=== PATIENT | male | born 1955 | race Caucasian/White ===

== ENCOUNTER 2018-01-03 05:38 | Day surgery (SDC) | END 2018-01-03 12:07 | disposition home or self-care (01) ==

== ENCOUNTER 2018-08-01 01:41 | Emergency (ER) | payer OTHER ==
[~2018-08-01] VITALS: Ht 182.6 cm; Wt 145.0 kg
[~2018-08-01 01:41] MED LIST: AMIO200T4 PO; APIX5TAB PO; CHOL100062 PO; CYAN100T PO; FOLI-49 PO; FURO40TA4 PO; NEBI10TA2 PO
[2018-08-01 01:45] VITALS: Ht 182.6 cm; Wt 145.0 kg
[2018-08-01] MEDS ORDERED: morphine 4 MG/ML VIAL IM STA (02:03)
--- NOTE | 2018-08-01 03:23 | ERD ---
ER Documentation Chief Complaint Chief Complaint KRISTIE [id number] from [facility],Rt chest surgical site pain HPI Is a 7-year-old male comes in with right-sided chest pain and placement of a surgical chest tube site. The pain started today. Mild to moderate intensity. No fevers or chills. No nausea no vomiting. No new trauma. No other current complaints. ROS All systems reviewed and are negative except as per history of present illness. Medications Home Meds Reported Medications Cholecalciferol* (Vitamin D3*) 1,000 Unit Tablet, 1000 UNIT PO DAILY, TAB 01/03/18 Cyanocobalamin* (Vitamin B-12*) 100 Mcg Tablet, 100 MCG PO DAILY, TAB 01/03/18 Folic Acid* (Folic Acid*) 1 Mg Tablet, 1 MG PO DAILY, TAB 01/03/18 Nebivolol Hcl* (Bystolic*) 10 Mg Tablet, 10 MG PO DAILY, #30 TAB 01/03/18 Furosemide* (Furosemide*) 40 Mg Tablet, 40 MG PO DAILY, TAB 01/03/18 Amiodarone Hcl* (Amiodarone Hcl*) 200 Mg Tablet, 200 MG PO DAILY, #30 TAB 01/03/18 Apixaban* (Eliquis*) 5 Mg Tablet, 10 MG PO BID WITH MEALS, TAB 01/03/18 Allergies Allergies: Coded Allergies: No Known Allergies (Verified Allergy, Unknown, 01/03/18) PMhx/Soc History of Surgery: Yes (right wrist surgery; left knee sx, RIGHT CHEST TUBE, TRACH, GTUBE PLACEMENT) Anesthesia Reaction: No Hx Neurological Disorder: No Hx Respiratory Disorders: Yes (RESPIRATORY FAILURE) Hx Cardiac Disorders: Yes (CHF, AFIB, AORTIC STENOSIS, ) Hx Psychiatric Problems: No Hx Miscellaneous Medical Probl: Yes (ARTHRITIS, GOUT, DM, ARF, MORBID OBESITY) Hx Alcohol Use: No Hx Substance Use: No Hx Tobacco Use: No Smoking Status: Unknown if ever smoked Physical Exam Vitals Vital Signs Date Temp Pulse Resp B/P (MAP) Pulse Ox O2 O2 Flow FiO2 Time Delivery Rate 08/01/18 95 16 108/92 100 Trach 5.0 02:00 (97) Collar 08/01/18 98.3 60 18 165/102 100 01:45 (123) Physical Exam Const: No acute distress Head: Atraumatic Eyes: Normal Conjunctiva ENT: Normal External Ears, Nose and Mouth. Neck: Full range of motion. No meningismus. Resp: Clear to auscultation bilaterally Cardio: Regular rate and rhythm, no murmurs Abd: Soft, non tender, non distended. Normal bowel sounds Skin: No petechiae or rashes Back: No midline or flank tenderness Ext: No cyanosis, or edema Neur: Awake and alert Psych: Normal Mood and Affect Results 24 hrs Current Medications Medications Dose Sig/Terri Start Time Status Last (Trade) Ordered Route PRN Stop Time Admin Dose Reason Admin Morphine 4 mg ONCE STAT 08/01/18 DC Sulfate IM 02:03 08/01/18 (morphine) 02:04 1 tab ONCE ONCE 08/01/18 Acetaminophen PO 03:30 08/01/18 / 03:31 Hydrocodone Bitart ([place] ()) Procedures/MDM Chest X-ray 1V Interpreted by me: Soft Tissue: No acute abnormalities Bones: No acute abnormalities Mediastinum/Cardiac Silhouette/Lungs: [No acute abnormalities] Medical decision makin-year-old male here essentially postop surgical pain. Spine clinical stable. No evidence of acute process. Stable for outpatient management. Departure Diagnosis: Primary Impression: Postoperative complication Surgical complication system/body Area: skin Surgical complication type: unspecified Procedure type: non-dermatologic Qualified Codes: L76.82 - Other postprocedural complications of skin and subcutaneous tissue Condition: Stable Patient Instructions: Post Op Wound Check, Pain GUS HUTSON Aug 01, 2018 03:23
[2018-08-01] MEDS ORDERED: HYDROCODONE/APAP (10/325) TAB PO ONE (03:30)
[2018-08-01 06:20] VITALS: BP 108/72; PULSE 91; RESP 18
== END 2018-08-01 06:35 | disposition home or self-care (01) ==
LOC: E/R 01:41
DX: L76.82 Other postprocedural complications of skin and subcutaneous tissue (principal); I50.9 Heart failure, unspecified; E11.9 Type 2 diabetes mellitus without complications; E66.01 Morbid (severe) obesity due to excess calories; R07.9 Chest pain, unspecified; Z79.01 Long term (current) use of anticoagulants
CPT/HCPCS: 71045; 93005; J2270

== ENCOUNTER 2018-08-10 02:08 | Inpatient (IN) | payer OTHER ==
[~2018-08-10] VITALS: Ht 185.4 cm; Wt 156.0 kg
[2018-08-10] VITALS (20 sets, daily range): BP systolic 89–125; BP diastolic 52–99; PULSE 73–89; RESP 16–30; Ht 185.4 cm; Wt 156.0 kg
--- NOTE | 2018-08-10 02:19 | ERD ---
ER Documentation Chief Complaint Chief Complaint chest congestion HPI The patient is a 63-year-old male, presenting to the ER because of acute nasal and chest congestion for the last 2 weeks, complains of substernal chest discomfort for the last 2-3 days. He also complains of decreased urine output for the last 12 days. He had a Humphrey catheter inserted by the nursing staff that did not drain out any urine. He denies facial pain, denies chest pain with vomiting/radiation/exertion/diaphoresis, dyspnea, abdominal pain, vomiting, diarrhea, constipation. He does not smoke nor drink, not ambulatory He was treated with 2 nitroglycerin spray and aspirin 162 mg p.o. by EMS that make no different Past medical history:Chronic respite failure, dysphagia, history of CHF, atrial fibrillation, aortic stenosis, CAD, diabetes mellitus Past surgical history: Tracheostomy connected to a 2 L, G-tube ROS All systems reviewed and are negative except as per history of present illness. Medications Home Meds Reported Medications Cholecalciferol* (Vitamin D3*) 1,000 Unit Tablet, 1000 UNIT PO DAILY, TAB 01/03/18 Cyanocobalamin* (Vitamin B-12*) 100 Mcg Tablet, 100 MCG PO DAILY, TAB 01/03/18 Folic Acid* (Folic Acid*) 1 Mg Tablet, 1 MG PO DAILY, TAB 01/03/18 Nebivolol Hcl* (Bystolic*) 10 Mg Tablet, 10 MG PO DAILY, #30 TAB 01/03/18 Furosemide* (Furosemide*) 40 Mg Tablet, 40 MG PO DAILY, TAB 01/03/18 Amiodarone Hcl* (Amiodarone Hcl*) 200 Mg Tablet, 200 MG PO DAILY, #30 TAB 01/03/18 Apixaban* (Eliquis*) 5 Mg Tablet, 10 MG PO BID WITH MEALS, TAB 01/03/18 Allergies Allergies: Coded Allergies: No Known Allergies (Unverified Allergy, Unknown, 08/10/18) PMhx/Soc History of Surgery: Yes (right wrist surgery; left knee sx, RIGHT CHEST TUBE, TRACH, GTUBE PLACEMENT) Anesthesia Reaction: No Hx Neurological Disorder: No Hx Respiratory Disorders: Yes (RESPIRATORY FAILURE) Hx Cardiac Disorders: Yes (CHF, AFIB, AORTIC STENOSIS, ) Hx Psychiatric Problems: No Hx Miscellaneous Medical Probl: Yes (ARTHRITIS, GOUT, DM, ARF, MORBID OBESITY) Hx Alcohol Use: No Hx Substance Use: No Hx Tobacco Use: No Physical Exam Vitals Vital Signs Date Temp Pulse Resp B/P (MAP) Pulse Ox O2 O2 Flow FiO2 Time Delivery Rate 08/10/18 75 16 130/62 95 Trach 15.0 04:53 (84) Collar 08/10/18 78 14 87/61 (70) 94 Trach 15.0 04:34 Collar 08/10/18 74 19 118/66 100 Trach 15.0 03:13 (83) Collar 08/10/18 15 02:43 08/10/18 97.7 77 16 93/66 (75) 99 02:36 Physical Exam Const: No acute distress. Dehydrated Head: Atraumatic. Eyes: Normal Conjunctiva. ENT: Normal External Ears, Nose and Mouth. Neck: Full range of motion. No meningismus.Trach Resp: Clear to auscultation bilaterally. Cardio: Irregularly irregular Abd: Soft, obese, normal bowel sounds, non tender.GT Skin: No petechiae or rashes. Back: No midline or flank tenderness. Ext: No cyanosis, or edema. Neur: Awake and alert. No focal deficit Psych: Normal Mood and Affect. Result Diagram: 08/10/1821908/10/18219 Results 24 hrs Laboratory Tests Test 08/10/18 02:19 08/10/18 02:20 08/10/18 02:56 08/10/18 05:08 POC Venous Lactate 2.0 mmol/L 1.5 mmol/L White Blood Count 7.7 10^3/ul Red Blood Count 2.36 10^6/ul Hemoglobin 7.0 g/dl Hematocrit 24.7 % Mean Corpuscular 104.7 fl Volume Mean Corpuscular 29.7 pg Hemoglobin Mean Corpuscular 28.3 g/dl Hemoglobin Concent Red Cell 19.1 % Distribution Width Platelet Count 124 10^3/UL Mean Platelet 11.3 fl Volume Immature 0.400 % Granulocytes % Neutrophils % 77.8 % Lymphocytes % 12.7 % Monocytes % 5.1 % Eosinophils % 3.9 % Basophils % 0.1 % Nucleated Red Blood 0.0 /100WBC Cells % Immature 0.030 10^3/ul Granulocytes # Neutrophils # 6.0 10^3/ul Lymphocytes # 1.0 10^3/ul Monocytes # 0.4 10^3/ul Eosinophils # 0.3 10^3/ul Basophils # 0.0 10^3/ul Nucleated Red Blood 0.0 10^3/ul Cells # Prothrombin Time 21.2 Sec Prothrombin Time 1.7 Ratio INR International 1.82 Normalized Ratio Activated 37.0 Sec Partial Thromboplas t Time Sodium Level 136 mmol/L Potassium Level 5.0 mmol/L Chloride Level 84 mmol/L Carbon Dioxide 36 mmol/L Level Anion Gap 16 Blood Urea Nitrogen 223 mg/dl Creatinine 7.17 mg/dl Est Glomerular 8 mL/min Filtrat Rate mL/min Glucose Level 166 mg/dl Calcium Level 8.7 mg/dl Total Bilirubin 0.0 mg/dl Direct Bilirubin 0.00 mg/dl Indirect Bilirubin 0.0 mg/dl Aspartate Amino 29 IU/L Transf (AST/SGOT) Alanine 15 IU/L Aminotransferase (A LT/SGPT) Alkaline 122 IU/L Phosphatase Troponin I 0.080 ng/ml Total Protein 7.3 g/dl Albumin 3.3 g/dl Globulin 4.00 g/dl Albumin/Globulin 0.82 Ratio Bedside Urine pH 5.0 (LAB) Bedside Urine 3+ Protein (LAB) Bedside Urine Negative Glucose (UA) Bedside Urine Trace Ketones (LAB) Bedside Urine Blood 2+ Bedside Urine Negative Nitrite (LAB) Bedside Urine 1+ Leukocyte Esterase (L Current Medications Medications Dose Sig/Terri Start Time Status Last (Trade) Ordered Route PRN Stop Time Admin Dose Reason Admin Piperacillin 50 ml @ ONCE ONCE 08/10/18 DC 08/10/18 Sod/ 100 mls/hr IVPB 05:00 05:17 Tazobactam 08/10/18 05:29 Sod Sodium 2,400 ml BOLUS OVER 2 08/10/18 DC 08/10/18 Chloride HOURS STAT 04:35 04:32 (NS) IV* 08/10/18 04:43 Vancomycin 250 ml @ ONCE ONCE 08/10/18 HCl 125 mls/hr IVPB 05:00 08/10/18 06:59 Procedures/MDM [place] [id number] Radiology Main Line: [phone] DIAGNOSTIC IMAGING REPORT Patient: LAUREEN WHITFIELD : 1955 Age: 63 Sex: M MR #: [id number] DOS: 08/10/18 0220 Ordering MD: TEENA HARMON MD Location: E/R Room/Bed: PROCEDURE: CHEST - 1 VIEW CLINICAL INDICATION: 63-year-old male with shortness of breath and sepsis. TECHNIQUE: A single frontal AP portable view of the chest was performed. The images were reviewed on a PACS workstation. COMPARISON: DR GUEVARA 08/01/2018; DR VIGIL CHEST 01/03/2018 FINDINGS: There is a tracheostomy tube in place. The cardiomediastinal silhouette it is moderately enlarged but without significant interval change. There is mild pulmonary vascular congestion. There is a shallow inspiration. There is mild bibasilar subsegmental atelectasis. There is no definite focal area of consolidation. There is no evidence for pneumothorax. The osseous structures are intact. IMPRESSION: 1. Tracheostomy tube. 2. Cardiomegaly. 3. Pulmonary vascular congestion. 4. Shallow inspiration. 5. Mild bibasilar subsegmental atelectasis. .Bishnu Mcginnis MD, MD Date Time Electronically viewed and signed by .Bishnu Mcginnis MD, MD on 08/10/2018 03:03 .M/ CC: TEENA HARMON MD [id number] EKG: Read by emergency physician Rate/Rhythm: Atrial fibrillation 69 beats per min QRS, ST, T-waves: No ST elevation, no T wave inversion, LAD, right bundle branch block, inferior Q waves, lateral T abnormality Impression: Abnormal EKG MEDICAL MAKING DECISION: The patient is a 63-year-old male, presenting with a cute severe sepsis, acute cystitis, acute kidney injury, suspected acute GI bleeding he was treated with vancomycin IV, Zosyn IV, ideal body weight IV fluid because of high BMI of 44. I have ordered to transfuse him 2 units of packed red blood cell due to acute severe anemia, suspected for acute GI bleed The differential diagnoses considered include but are not limited to asthma, COPD, pneumonia, pulmonary embolus, pleural effusion, congestive heart failure, GI bleed. MDM: Patient's infectious symptoms have not stabilized and the patient is at risk of rapid decompensation. The patient will be admitted for careful hydration, antibiotic therapy, and infectious source control. SEVERE SEPSIS CRITERIA: Infectious source:uti End organ damage indicated by: Lactate > 2.0 mmol/L Home Administrator > 2.0 SEPSIS MANAGEMENT Time of recognition of severe sepsis: 5am 3 HOUR BUNDLE Blood cultures x 2 before broad-spectrum antibiotics: Yes 30 ml/kg NS bolus completed Initial lactate2 Repeat lactate Pending SEPTIC SHOCK ASSESSMENT: No lactic acid > 4.0 No persistent hypotension (SBP < 90 or 40 mmHg drop, MAP < 65) despite 30 mL/kg IV fluid bolus CRITICAL CARE Critical care time 35 minutes Emergent fluid management while maintaining close respiratory support. Provision of immediate and broad-spectrum antibiotic therapy. Simultaneous assessment for possible sources in order to direct targeted therapy. Consideration for invasive and chemical support to prevent cardiopulmonary collapse. Critical care time is independent of procedures performed. Departure Diagnosis: Primary Impression: Severe sepsis Additional Impressions: UTI (urinary tract infection) SHAILA (acute kidney injury) GI bleed Anemia Thrombocytopenia Condition: Critical Comments I discussed the findings with the patient. I discussed the patient with the hospitalist Dr Hawthorne at 5 am. who was made aware of the lab, the treatment, the patient condition. The patient is admitted to ICU Disclaimer: Inadvertent spelling and grammatical errors are likely due to EHR/dictation software use and do not reflect on the overall quality of patient care. Also, please note that the electronic time recorded on this note does not necessarily reflect the actual time of the patient encounter. TEENA HARMON MD Aug 10, 2018 02:19
[2018-08-10] MEDS ORDERED: SODIUM CHLORIDE 0.9% 1L BAG IV* STA (04:35)
[2018-08-10] MEDS ORDERED: PIPER-TAZO 2.25 GM (PMX) 50 ML IVPB ONE (05:00)
[2018-08-10] MEDS ORDERED: VANCOMYCIN 1 GM (PMX) 250 ML IVPB ONE (05:00)
--- NOTE | 2018-08-10 08:15 | NUR ---
Received from ER,, awake and alert, communicate with mouth words, denies pain with with c/o of having some SOB on exertion, afebrile, BP currently stable, generalized edema, with harp cath reported to be anuric for >10 days. Skin assessed with other RN, noted to have lesions on the right and left buttocks, incontinent dermatitis, left neck trach suture site and, oozing old CT site on the right chest. Notified patient regarding the plan of care, wound care. Pending Nephrology consult.
[2018-08-10] MEDS ORDERED: SOD CHLORIDE 0.9% 1,000 ML IV SCH (09:20)
[2018-08-10] MEDS ORDERED: NACL 0.9% 3 ML SYG IV SCH (09:30)
[2018-08-10] MEDS ORDERED: ACETAMINOPHEN 650 MG SUPP PR PRN (09:30)
[2018-08-10] MEDS ORDERED: ACETAMINOPHEN 325 MG TAB PO PRN (09:30)
[2018-08-10] MEDS ORDERED: morphine SULFATE/PF (2 MG/2 ML) SYG IV PRN (09:30)
[2018-08-10] MEDS ORDERED: ONDANSETRON 4 MG INJ IV PRN (09:30)
[2018-08-10] MEDS ORDERED: BISACODYL 10 MG SUPP PR PRN (09:30)
[2018-08-10] MEDS ORDERED: ALLOPURINOL 100 MG TAB PO ONE (10:00)
[2018-08-10] MEDS ORDERED: DEXTROSE 50% 50 ML SYRINGE IV PRN ×2 (10:30)
[2018-08-10] MEDS ORDERED: GLUCAGON 1 MG INJ IM PRN (10:30)
[2018-08-10] MEDS ORDERED: GLUCOSE GEL 15 GRAM TUBE BUCCAL PRN (10:30)
[2018-08-10] MEDS ORDERED: GLUCOSE GEL 15 GRAM TUBE PO PRN ×2 (10:30)
[2018-08-10] MEDS ORDERED: LORA-441 PO (10:47)
[2018-08-10] MEDS ORDERED: [UNRECOGNIZED DRUG - CODE] MC (10:47)
[2018-08-10] MEDS ORDERED: ESCI5TAB10 G-TUBE (10:47)
[2018-08-10] MEDS ORDERED: UDFER GTB (10:47)
[2018-08-10] MEDS ORDERED: FERR12.5 PO (10:47)
[2018-08-10] MEDS ORDERED: LANT3I SC (10:59)
[2018-08-10] MEDS ORDERED: OXYC10SY GTB (10:59)
--- NOTE | 2018-08-10 11:04 | HP ---
Date/Time of Note Date/Time of Note DATE: 08/10/18 TIME: 10:07 Assessment/Plan VTE Prophylaxis SCD applied (from Nsg): Yes Pharmacological prophylaxis: heparin Lines/Catheters IV Catheter Type (from Nrsg): Saline Lock Assessment/Plan Assessment/Plan 63-year-old male with: 1. Volume overload, anasarca, pulmonary edema, in setting of known diastolic heart failure and advance kidney disease, patient currently in acute on chronic renal failure Nephrology consult pending, patient may need to initiate dialysis given his current laboratory data and volume overload status. 2. Acute kidney injury on chronic kidney disease, patient with uremia, metabolic acidosis, mild hyperkalemia noted this morning, volume overload with anasarca and pulmonary edema. Patient known to have advanced chronic kidney disease, also has hyperuricemia/gout, uric acid is up to 14.5. Discussed with nephrology. Patient to be started on allopurinol currently. Ultrasound pending, ABG pending. Further evaluation regarding possible initiation of hemodialysis per nephrology. Patient did get approximately 2.5 L normal saline bolus in the emergency department along with 1 unit of packed red blood cells already. Holding off IV fluids for now. Further decision regarding hydration versus diuresis versus hemodialysis per nephrology. 3. Chronic respiratory failure secondary to becoming and syndrome, status post tracheostomy and gastrostomy tube placement, patient with an acute component on this admission secondary to volume overload and pulmonary edema. Currently on trach collar, to be continued. Will need volume management either via diuresis versus HD. Pulmonary consulted and following. 4. Diastolic heart failure, unclear ejection fraction, questionable valvular disease. 2D echocardiogram ordered. Currently in volume overload, volume management may require HD given current renal function and known advanced renal disease. 5. Atrial fibrillation, chronic, rate controlled currently. Holding of Eliquis for now as patient possibly will need dialysis catheter placed. Also will need renal dosing of Eliquis once ready to go back on it. On amiodarone and bisoprolol. 7. Chronic anemia, apparently at discharge from his last hospitalization his hemoglobin was close to 7. Patient has microcytosis, he is on supplemental iron and folic acid along with B12 as an outpatient. He did receive 1 unit of packed red blood cells in the emergency department. Iron studies, TSH, free T4 pending. Stool occult blood ordered. We need records from [facility] patient may have had a GI workup already done. If stool occult blood and negative, likely not to blood loss from GI source. 8. Diabetes mellitus, insulin requiring, check hemoglobin A1c, resume insulin regimen with consideration of acute renal failure. 9. Gout/hyperuricemia, uric acid up to 14.5. Allopurinol to be started. Renal ultrasound pending to rule out obstructive uropathy. 10. Hypertension: Actually found to be slightly hypotensive, may need to hold bisoprolol. 11. Morbid obesity with obstructive sleep apnea and pickwickian syndrome requi ring tracheostomy for chronic respiratory failure. Prophylaxis: Heparin for DVT prophylaxis, Pepcid for GI prophylaxis Disposition: Patient admitted to intensive care unit, may need to start pressors if significantly hypotensive, awaiting nephrology evaluation for possible initiation of dialysis in order to manage volume overload and metabolic abnormalities. Result Diagram: 08/10/1882508/[id number]/18825 Results 24hrs Laboratory Tests Test 08/10/18 02:19 08/10/18 02:20 08/10/18 02:56 08/10/18 05:08 POC Venous Lactate 2.0 1.5 White Blood Count 7.7 Red Blood Count 2.36 L Hemoglobin 7.0 L Hematocrit 24.7 L Mean Corpuscular 104.7 H Volume Mean Corpuscular 29.7 Hemoglobin Mean Corpuscular 28.3 L Hemoglobin Concent Red Cell 19.1 H Distribution Width Platelet Count 124 L Mean Platelet Volume 11.3 H Immature 0.400 Granulocytes % Neutrophils % 77.8 H Lymphocytes % 12.7 L Monocytes % 5.1 Eosinophils % 3.9 Basophils % 0.1 Nucleated Red Blood 0.0 Cells % Immature 0.030 Granulocytes # Neutrophils # 6.0 Lymphocytes # 1.0 Monocytes # 0.4 Eosinophils # 0.3 Basophils # 0.0 Nucleated Red Blood 0.0 Cells # Prothrombin Time 21.2 H Prothrombin Time 1.7 Ratio INR International 1.82 Normalized Ratio Activated 37.0 H Partial Thromboplast Time Sodium Level 136 Potassium Level 5.0 Chloride Level 84 L Carbon Dioxide Level 36 H Anion Gap 16 H Blood Urea Nitrogen 223 H Creatinine 7.17 H Est Glomerular 8 L Filtrat Rate mL/min Glucose Level 166 Calcium Level 8.7 Total Bilirubin 0.0 L Direct Bilirubin 0.00 Indirect Bilirubin 0.0 Aspartate Amino 29 Transf (AST/SGOT) Alanine 15 Aminotransferase (AL T/SGPT) Alkaline Phosphatase 122 H Troponin I 0.080 Total Protein 7.3 Albumin 3.3 Globulin 4.00 H Albumin/Globulin 0.82 Ratio Bedside Urine pH 5.0 (LAB) Bedside Urine 3+ H Protein (LAB) Bedside Urine Negative Glucose (UA) Bedside Urine Trace H Ketones (LAB) Bedside Urine Blood 2+ H Bedside Urine Negative Nitrite (LAB) Bedside Urine 1+ H Leukocyte Esterase (L Test 08/10/18 06:28 08/10/18 08:26 Lactic Acid Level 1.3 White Blood Count 8.3 Red Blood Count 2.67 L Hemoglobin 8.0 L Hematocrit 27.3 L Mean Corpuscular 102.2 H Volume Mean Corpuscular 30.0 Hemoglobin Mean Corpuscular 29.3 L Hemoglobin Concent Red Cell 20.7 H Distribution Width Platelet Count 121 L Mean Platelet Volume 12.0 H Immature 0.500 H Granulocytes % Neutrophils % 81.6 H Lymphocytes % 9.7 L Monocytes % 4.8 Eosinophils % 3.3 Basophils % 0.1 Nucleated Red Blood 0.0 Cells % Immature 0.040 H Granulocytes # Neutrophils # 6.7 Lymphocytes # 0.8 Monocytes # 0.4 Eosinophils # 0.3 Basophils # 0.0 Nucleated Red Blood 0.0 Cells # Sodium Level 135 Potassium Level 5.2 H Chloride Level 86 L Carbon Dioxide Level 33 H Anion Gap 16 H Blood Urea Nitrogen 225 H Creatinine 6.83 H Est Glomerular 8 L Filtrat Rate mL/min Glucose Level 158 Uric Acid 14.7 H Calcium Level 8.6 Total Bilirubin 0.1 L Direct Bilirubin 0.00 Indirect Bilirubin 0.1 Aspartate Amino 36 Transf (AST/SGOT) Alanine 20 Aminotransferase (AL T/SGPT) Alkaline Phosphatase 135 H Troponin I 0.074 Total Protein 7.4 Albumin 3.4 Globulin 4.00 H Albumin/Globulin 0.85 Ratio HPI/ROS Admit Date/Time Admit Date/Time Aug 10, 2018 at 05:03 Hx of Present Illness Chief complaint: Chest pressure, decreased urine output. History of presenting illness: This is a 63-year-old male with history of super morbid obesity, pickwickian syndrome, chronic respiratory failure both hypoxic and hypercapnic status post tracheostomy and G-tube placement, chronic kidney disease at least stage IV, diabetes mellitus, hypertension, atrial fibrillation, CHF with diastolic dysfunction who was sent to the emergency department from local [place] [facility] with increased chest pressure and chest congestion and also decreased urine output. The patient has been on trach collar and stable at the [place] [facility] apparently, he reports that over the past 10 days has been there he has been having increased congestion postnasal and pulmonary, his urine output has been dropping down. Patient has a tracheostomy but he is alert and able to answer questions. He reports chills and subjective fevers. He reports lower abdomen, suprapubic tenderness. From [facility] medication list, he is been on appropriate treatment for his atrial fibrillation and the rest of his conditions. Laboratory data does show a normal WBC, normal lactic acid, UA is pending along with urine culture, blood cultures have been drawn. Patient did receive empiric broad- spectrum antibiotics. However when assessing the patient, based on his laboratory data and his clinical presentation, he is actually in volume overload and worsening renal failure, BUN is up to 200's, creatinine up to 7.1, uric acid is a 14.5. Nephrology consulted, currently patient likely to require initiation of hemodialysis given current presentation, we will follow-up nephrology recom mendations. Patient otherwise awake, alert, no additional complaints. ROS Constitutional: chills, febrile (Subjective), nausea Eyes: no complaints ENT: congestion Respiratory: shortness of breath Cardiovascular: chest pain (Chest pressure) Gastrointestinal: decreased appetite, nausea Genitourinary: other (Very minimal urine output, suprapubic tenderness.) Musculoskeletal: no complaints, swelling (anasarca ) Skin: no complaints Neurologic: no complaints PMH/Family/Social Past Medical History Atrial fibrillation Chronic diastolic heart failure Hypertension Diabetes mellitus Super morbid obesity Chronic respiratory failure status post tracheostomy and PEG tube placement, secondary to pickwickian syndrome Obstructive sleep apnea Gout/hyperuricemia Chronic kidney disease, likely stage IV at least, last creatinine above 4 and BUN 150s on 07/31/18 while patient admitted at [facility] Chronic anemia, likely secondary to chronic disease. Medications Current Medications IV Flush (NS 3 ml) 3 ml PER PROTOCOL IV ; Start 08/10/18 at 09:30 Lorazepam (Ativan) 0.5 mg Q6H PRN IV ANXIETY; Start 08/10/18 at 09:30 Ondansetron HCl (Zofran Inj) 4 mg Q6H PRN IV NAUSEA AND/OR VOMITING; Start 08/10/18 at 09:30 Acetaminophen (Tylenol Tab) 650 mg Q6H PRN PO PAIN LEVEL 1-3 OR FEVER; Start 08/10/18 at 09:30 Morphine Sulfate (morphine SULFATE (PF)) 2 mg Q4H PRN IV PAIN LEVEL 7-10; Sta rt 08/10/18 at 09:30 Bisacodyl (Dulcolax Supp) 10 mg DAILY PRN [place] CONSTIPATION; Start 08/10/18 at 09 :30 Famotidine (Pepcid Iv) 20 mg DAILY IV ; Start 08/10/18 at 09:30 Heparin Sodium (Porcine) (Heparin (5000 Units/1ml)) 5,000 unit Q12 SC ; Start 08/10/18 at 21:00 Amiodarone HCl (Cordarone) 200 mg DAILY PO ; Start 08/11/18 at 09:00 Cholecalciferol (Vitamin D) 1,000 unit DAILY PO ; Start 08/11/18 at 09:00 Cyanocobalamin (Vitamin B12) 100 mcg DAILY PO ; Start 08/11/18 at 09:00 Folic Acid (Folic Acid) 1 mg DAILY PO ; Start 08/11/18 at 09:00 Miscellaneous Medication (Bystolic) 10 mg DAILY PO ; Start 08/11/18 at 09:00 Allopurinol (Zyloprim) 100 mg DAILY PO ; Start 08/11/18 at 09:00 Miscellaneous Information (* Miscellaneous Pharmacy Order) Discontinue current oral sulfonylur... ONCE ONCE XX ; Start 08/10/18 at 10:30; Stop 08/10/18 at 10:31; Status UNV Diagnostic Test (Pha) (Accu-Chek) XX ; Start 08/11/18 at 02:00; Status UNV Miscellaneous Information (* Miscellaneous Pharmacy Order) HYPOGLYCEMIA PROTOCOL w... ONCE ONCE XX ; Start 08/10/18 at 10:30; Stop 08/10/18 at 10:31; Status UNV Insulin Aspart (Novolog Insulin Pen) NOVOLOG *MILD* ALGORITHM WITH MEALS BEDTIME SC ; Start 08/10/18 at 11:30; Status UNV Miscellaneous Information (* Miscellaneous Pharmacy Order) Discontinue all previ... ONCE ONCE XX ; Start 08/10/18 at 10:30; Stop 08/10/18 at 10:31; Status UNV Coded Allergies: No Known Allergies (Unverified Allergy, Unknown, 08/10/18) Past Surgical History Status post tracheostomy and G-tube placement Family History Significant Family History: no pertinent family hx Social History Alcohol Use: none Smoking Status: Never smoker Drug Use: none Exam/Review of Systems Vital Signs Vitals Vital Signs Date Temp Pulse Resp B/P (MAP) Pulse Ox O2 O2 Flow FiO2 Time Delivery Rate 08/10/18 75 16 91/56 (68) 97 09:00 08/10/18 97.4 T Tube 5.0 08:15 08/10/18 40 07:19 Intake and Output 08/09/18 08/09/18 08/10/18 1515:00 23:00 07:00 IntakeIntake Total 300 ml BalanceBalance 300 ml Exam Constitutional: alert, oriented, well developed, other (Morbidly obese but also with anasarca currently.) Psych: no complaints Head: normocephalic, atraumatic ENMT: other (Status post tracheostomy) Respiratory: diminished breath sounds (Bilaterally, patient with congestion.) Cardiovascular: irregular rhythm (Controlled atrial fibrillation) Gastrointestinal: soft, non-tender Genitourinary - Male: other (Only catheter in place with minimal urine output) Musculoskeletal: swelling (Anasarca noted) Extremities: normal pulses, other (Anasarca) Neurological: 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
[2018-08-10] MEDS ORDERED: POLY17PO28 GTB (11:06)
[2018-08-10] MEDS ORDERED: PANT40SU G-TUBE (11:06)
[2018-08-10] MEDS ORDERED: SENN8.8S5 G-TUBE (11:06)
[2018-08-10] MEDS: FAMOTIDINE 20 MG INJ IV SCH (11:40)
[2018-08-10] MEDS: INSULIN ASPART [NOVOLOG] 3 ML PEN SC SCH ×3 (11:47→23:45)
--- NOTE | 2018-08-10 11:59 | CONS ---
Date/Time of Note Date/Time of Note DATE: 08/10/18 TIME: 11:58 Assessment/Plan Assessment/Plan Assessment/Plan 1. acute Fluid overload with worsening renal failure, Oliguric to anuric 2. Uremia with BUN 223 3. SHAILA on CKD IV due to ATN 4. acute on chronic hypoxemix respiratory failure currenlty back on Vent, S/p tracheostomy 5. Anemia of ESRD 6. Hyperuricemia 7. Morbid to severe obesity 8. Pickwickian syndrome Plan: Urine output since monringin only 30 cc, fluid overloaded wiht uremia, Plan is to start HD, discussed with pt bedside- he agreed about it, understood it clearly and said he want to start HD Plan is to have norma by Dr. Heath Pacheco is to do 2 hr today and 3 hr tomrorow Allopurinol 100mg po daily Bumex 2 mg iV BID Thanks for consultation, I will continue to follo wup Result Diagram: 08/10/18 0826 08/10/18 0826 Results 24hrs Laboratory Tests Test 08/10/18 02:19 08/10/18 02:20 08/10/18 02:56 08/10/18 05:08 POC Venous 2.0 1.5 Lactate White Blood Count 7.7 Red Blood Count 2.36 L Hemoglobin 7.0 L Hematocrit 24.7 L Mean Corpuscular 104.7 H Volume Mean Corpuscular 29.7 Hemoglobin Mean Corpuscular 28.3 L Hemoglobin Concen t Red Cell 19.1 H Distribution Width Platelet Count 124 L Mean Platelet 11.3 H Volume Immature 0.400 Granulocytes % Neutrophils % 77.8 H Lymphocytes % 12.7 L Monocytes % 5.1 Eosinophils % 3.9 Basophils % 0.1 Nucleated Red 0.0 Blood Cells % Immature 0.030 Granulocytes # Neutrophils # 6.0 Lymphocytes # 1.0 Monocytes # 0.4 Eosinophils # 0.3 Basophils # 0.0 Nucleated Red 0.0 Blood Cells # Prothrombin Time 21.2 H Prothrombin Time 1.7 Ratio INR International 1.82 Normalized Ratio Activated 37.0 H Partial Thrombopl ast Time Sodium Level 136 Potassium Level 5.0 Chloride Level 84 L Carbon Dioxide 36 H Level Anion Gap 16 H Blood Urea 223 H Nitrogen Creatinine 7.17 H Est Glomerular 8 L Filtrat Rate mL/min Glucose Level 166 Calcium Level 8.7 Total Bilirubin 0.0 L Direct Bilirubin 0.00 Indirect 0.0 Bilirubin Aspartate Amino 29 Transf (AST/SGOT) Alanine 15 Aminotransferase (ALT/SGPT) Alkaline 122 H Phosphatase Troponin I 0.080 Total Protein 7.3 Albumin 3.3 Globulin 4.00 H Albumin/Globulin 0.82 Ratio Bedside Urine pH 5.0 (LAB) Bedside Urine 3+ H Protein (LAB) Bedside Urine Negative Glucose (UA) Bedside Urine Trace H Ketones (LAB) Bedside Urine 2+ H Blood Bedside Urine Negative Nitrite (LAB) Bedside Urine 1+ H Leukocyte Esteras e (L Test 08/10/18 06:26 08/10/18 06:28 08/10/18 08:22 08/10/18 08:26 Ferritin 744.0 H Thyroid 8.280 H Stimulating Hormone (TSH) Lactic Acid Level 1.3 Iron Level 41 Total Iron 223 L Binding Capacity Percent Iron 18 L Saturation White Blood Count 8.3 Red Blood Count 2.67 L Hemoglobin 8.0 L Hematocrit 27.3 L Mean Corpuscular 102.2 H Volume Mean Corpuscular 30.0 Hemoglobin Mean Corpuscular 29.3 L Hemoglobin Concen t Red Cell 20.7 H Distribution Width Platelet Count 121 L Mean Platelet 12.0 H Volume Immature 0.500 H Granulocytes % Neutrophils % 81.6 H Lymphocytes % 9.7 L Monocytes % 4.8 Eosinophils % 3.3 Basophils % 0.1 Nucleated Red 0.0 Blood Cells % Immature 0.040 H Granulocytes # Neutrophils # 6.7 Lymphocytes # 0.8 Monocytes # 0.4 Eosinophils # 0.3 Basophils # 0.0 Nucleated Red 0.0 Blood Cells # Sodium Level 135 Potassium Level 5.2 H Chloride Level 86 L Carbon Dioxide 33 H Level Anion Gap 16 H Blood Urea 225 H Nitrogen Creatinine 6.83 H Est Glomerular 8 L Filtrat Rate mL/min Glucose Level 158 Hemoglobin A1c 5.8 Uric Acid 14.7 H Calcium Level 8.6 Total Bilirubin 0.1 L Direct Bilirubin 0.00 Indirect 0.1 Bilirubin Aspartate Amino 36 Transf (AST/SGOT) Alanine 20 Aminotransferase (ALT/SGPT) Alkaline 135 H Phosphatase Creatine Kinase 40 Troponin I 0.074 Total Protein 7.4 Albumin 3.4 Globulin 4.00 H Albumin/Globulin 0.85 Ratio Test 08/10/18 10:04 08/10/18 11:37 Blood Gas Blood arterial Specimen Source Arterial Blood 08/10/2018 11:15: Date Drawn 44 AM Arterial Blood pH 7.345 L (Temp corrected) Arterial Blood 67.3 H pCO2 (Temp correct) Arterial Blood 87.1 pO2 (Temp corrected) Arterial Blood 35.9 H HCO3 Arterial Blood 8.8 H Base Excess Arterial Blood 95.6 Oxygen Saturation Lalo Test ACCEPTAB Arterial Blood Right Radial Gas Puncture Site Arterial 0.9 Blood Carboxyhemo globin Arterial Blood 0.5 Methemoglobin Blood Gas A-a O2 33.1 H Differential Oxyhemoglobin 94.3 Percent Blood Gas 37.0 Temperature Blood Gas TRACH COLLAR Modality FiO2 28.0 Blood Gas TM Notified Whom Blood Gas 08/10/2018 11:24: Notified Time 21 AM Bedside Glucose 180 Consultation Date/Type/Reason Admit Date/Time Aug 10, 2018 at 05:03 Date of Consultation: Aug 10, 2018 Type of Consult NEPHROLOGY Reason for Consultation acute kidney injury on CKD with Uremic encephalopathy Requesting Provider: EJ GRADY of Present Illness 63-year-old male with history of super morbid obesity, pickwickian syndrome, chronic respiratory failure both hypoxic and hypercapnic status post tracheostomy and G-tube placement, chronic kidney disease at least stage IV, diabetes mellitus, hypertension, atrial fibrillation, CHF with diastolic dysfunction who was sent to the emergency department [facility] with increased chest pressure and chest congestion and also decreased urine output. Laboratory data does show a normal WBC, normal lactic acid, UA is pending along with urine culture, blood cultures have been drawn. Patient did receive empiric broad-spectrum antibiotics. pt was fluid overloaded with , BUN is up to 223, creatinine up to 7.1, uric acid is a 14.5. Renal has been consul tay for acute on chronic renal failure pt has been discharged with BUN 152 From [facility] Constitutional: no complaints Eyes: no complaints ENT: no complaints Respiratory: cough, pleuritic pain, shortness of breath Cardiovascular: no complaints Gastrointestinal: no complaints Genitourinary: no complaints Musculoskeletal: no complaints Skin: no complaints Neurologic: no complaints Endocrine: no complaints Lymphatic: no complaints Past Medical History Medical History: high cholesterol, hypertension, other (severe obesity, chronic respiratory failure) Medications Current Medications IV Flush (NS 3 ml) 3 ml PER PROTOCOL IV ; Start 08/10/18 at 09:30 Lorazepam (Ativan) 0.5 mg Q6H PRN IV ANXIETY; Start 08/10/18 at 09:30 Ondansetron HCl (Zofran Inj) 4 mg Q6H PRN IV NAUSEA AND/OR VOMITING; Start 08/10/18 at 09:30 Acetaminophen (Tylenol Tab) 650 mg Q6H PRN PO PAIN LEVEL 1-3 OR FEVER; Start 08/10/18 at 09:30 Morphine Sulfate (morphine SULFATE (PF)) 2 mg Q4H PRN IV PAIN LEVEL 7-10; Start 08/10/18 at 09:30 Bisacodyl (Dulcolax Supp) 10 mg DAILY PRN [place] CONSTIPATION; Start 08/10/18 at 09:30 Famotidine (Pepcid Iv) 20 mg DAILY IV Last administered on 08/10/18at 11:40; Admin Dose 20 MG; Start 08/10/18 at 09:30 Heparin Sodium (Porcine) (Heparin (5000 Units/1ml)) 5,000 unit Q12 SC ; Start 08/10/18 at 21:00 Amiodarone HCl (Cordarone) 200 mg DAILY PO ; Start 08/11/18 at 09:00 Cholecalciferol (Vitamin D) 1,000 unit DAILY PO ; Start 08/11/18 at 09:00 Cyanocobalamin (Vitamin B12) 100 mcg DAILY PO ; Start 08/11/18 at 09:00 Folic Acid (Folic Acid) 1 mg DAILY PO ; Start 08/11/18 at 09:00 Allopurinol (Zyloprim) 100 mg DAILY PO ; Start 08/11/18 at 09:00 Diagnostic Test (Pha) (Accu-Chek) 1 ea 02 XX ; Start 08/11/18 at 02:00 Insulin Aspart (Novolog Insulin Pen) NOVOLOG *MILD* ALGORITHM WITH MEALS BEDTIME SC Last administered on 08/10/18at 11:47; Admin Dose 1 UNIT; Start 08/10/18 at 11:30 Miscellaneous Information 1 ea NOTE XX ; Start 08/10/18 at 10:30 Glucose (Glutose) 15 gm Q15M PRN PO DECREASED GLUCOSE; Start 08/10/18 at 10:30 Glucose (Glutose) 22.5 gm Q15M PRN PO DECREASED GLUCOSE; Start 08/10/18 at 10:30 Dextrose (D50w Syringe) 25 ml Q15M PRN IV DECREASED GLUCOSE; Start 08/10/18 at 10:30 Dextrose (D50w Syringe) 50 ml Q15M PRN IV DECREASED GLUCOSE; Start 08/10/18 at 10:30 Glucagon (Glucagen) 1 mg Q15M PRN IM DECREASED GLUCOSE; Start 08/10/18 at 10:30 Glucose (Glutose) 15 gm Q15M PRN BUCCAL DECREASED GLUCOSE; Start 08/10/18 at 10:30 Miscellaneous Medication (Bystolic) 5 mg DAILY PO ; Start 08/11/18 at 09:00 Insulin Glargine (Lantus) 23 units DAILY@2000 SC ; Start 08/10/18 at 20:00 Allergies: Coded Allergies: No Known Allergies (Unverified Allergy, Unknown, 08/10/18) Past Surgical History Past Surgical Hx: other (Tracheosotmy, G tube ) Family History Significant Family History: no pertinent family hx Social History Alcohol Use: none Smoking Status: Never smoker Drug Use: none Exam/Review of Systems Vital Signs Vitals Vital Signs Date Temp Pulse Resp B/P (MAP) Pulse Ox O2 O2 Flow FiO2 Time Delivery Rate 08/10/18 76 16 97 Aerosol 5.0 28 10:00 T Tube 08/10/18 91/56 (68) 09:00 08/10/18 97.4 08:15 Intake and Output 08/09/18 08/09/18 08/10/18 1515:00 23:00 07:00 IntakeIntake Total 300 ml BalanceBalance 300 ml Exam Constitutional: alert, awake, morbidly obese, Psych: no complaints Head: normocephalic, atraumatic ENMT: other (Status post tracheostomy) Respiratory: diminished breath sounds (Bilaterally, patient with congestion.) Cardiovascular: irregular rhythm (Controlled atrial fibrillation) Gastrointestinal: soft, non-tender Genitourinary - Male: other (Only catheter in place with minimal urine output) Musculoskeletal: Diffuse anasarca Extremities: normal pulses, other (Anasarca) Neurological: HOTEL OR MOTEL MANAGER II-XII intact, nl mental status, other (Bedbound but moving all 4 extremities, currently with tracheostomy) Medications Medications Current Medications IV Flush (NS 3 ml) 3 ml PER PROTOCOL IV ; Start 08/10/18 at 09:30 Lorazepam (Ativan) 0.5 mg Q6H PRN IV ANXIETY; Start 08/10/18 at 09:30 Ondansetron HCl (Zofran Inj) 4 mg Q6H PRN IV NAUSEA AND/OR VOMITING; Start 08/10/18 at 09:30 Acetaminophen (Tylenol Tab) 650 mg Q6H PRN PO PAIN LEVEL 1-3 OR FEVER; Start 08/10/18 at 09:30 Morphine Sulfate (morphine SULFATE (PF)) 2 mg Q4H PRN IV PAIN LEVEL 7-10; Start 08/10/18 at 09:30 Bisacodyl (Dulcolax Supp) 10 mg DAILY PRN [place] CONSTIPATION; Start 08/10/18 at 09:30 Famotidine (Pepcid Iv) 20 mg DAILY IV Last administered on 08/10/18at 11:40; Admin Dose 20 MG; Start 08/10/18 at 09:30 Heparin Sodium (Porcine) (Heparin (5000 Units/1ml)) 5,000 unit Q12 SC ; Start 08/10/18 at 21:00 Amiodarone HCl (Cordarone) 200 mg DAILY PO ; Start 08/11/18 at 09:00 Cholecalciferol (Vitamin D) 1,000 unit DAILY PO ; Start 08/11/18 at 09:00 Cyanocobalamin (Vitamin B12) 100 mcg DAILY PO ; Start 08/11/18 at 09:00 Folic Acid (Folic Acid) 1 mg DAILY PO ; Start 08/11/18 at 09:00 Allopurinol (Zyloprim) 100 mg DAILY PO ; Start 08/11/18 at 09:00 Diagnostic Test (Pha) (Accu-Chek) 1 ea 02 XX ; Start 08/11/18 at 02:00 Insulin Aspart (Novolog Insulin Pen) NOVOLOG *MILD* ALGORITHM WITH MEALS BEDTIME SC Last administered on 08/10/18at 11:47; Admin Dose 1 UNIT; Start 08/10/18 at 11:30 Miscellaneous Information 1 ea NOTE XX ; Start 08/10/18 at 10:30 Glucose (Glutose) 15 gm Q15M PRN PO DECREASED GLUCOSE; Start 08/10/18 at 10:30 Glucose (Glutose) 22.5 gm Q15M PRN PO DECREASED GLUCOSE; Start 08/10/18 at 10:30 Dextrose (D50w Syringe) 25 ml Q15M PRN IV DECREASED GLUCOSE; Start 08/10/18 at 10:30 Dextrose (D50w Syringe) 50 ml Q15M PRN IV DECREASED GLUCOSE; Start 08/10/18 at 10:30 Glucagon (Glucagen) 1 mg Q15M PRN IM DECREASED GLUCOSE; Start 08/10/18 at 10:30 Glucose (Glutose) 15 gm Q15M PRN BUCCAL DECREASED GLUCOSE; Start 08/10/18 at 10:30 Miscellaneous Medication (Bystolic) 5 mg DAILY PO ; Start 08/11/18 at 09:00 Insulin Glargine (Lantus) 23 units DAILY@2000 SC ; Start 08/10/18 at 20:00 RUY WERNER MD Aug 10, 2018 11:59
--- NOTE | 2018-08-10 12:18 | CONS ---
DATE OF ADMISSION: 08/10/2018 DATE OF CONSULTATION: 08/10/2018 REASON FOR CONSULTATION: Chronic respiratory failure, respiratory distress. Thank you, for this consultation. HISTORY OF PRESENT ILLNESS: This is a 63-year-old gentleman with a history of tracheostomy, with ___ __ syndrome, hypertension, hyperlipidemia, morbid obesity, chronic renal insufficiency, came in yeste rday with increased chest pressure, decreased urine output. On arrival was awake, alert, reports chi lls and subjective fevers and lower abdominal pain. Normal lactic acid and CBC on admission, however evidence of worsening renal failure. PAST MEDICAL HISTORY: Chronic atrial fibrillation, diastolic heart failure, hypertension, hyperlipid emia, tracheostomy with pickwickian syndrome, morbid obesity. MEDICATIONS: Per chart. ALLERGIES: None. SOCIAL HISTORY: He is a nonsmoker, no alcohol, no history of drug use. FAMILY HISTORY: Noncontributory. SYSTEMS REVIEW: A 12-point review of systems was negative other than that mentioned above. PHYSICAL EXAMINATION: GENERAL: Elderly-appearing gentleman, appears comfortable at rest, opens eyes, nods to questions. VITAL SIGNS: Currently afebrile, pulse is 75, blood pressure 91/56, O2 saturation 96%, FIO2 of 5 lit ers. NECK: Trach site clean and intact. CARDIAC: S1, S2, no added sounds or murmurs. CHEST: Diminished air entry bilaterally. ABDOMEN: Soft, nontender. No guarding or rebound. EXTREMITIES: No cyanosis, clubbing, edema. NEUROLOGIC: Grossly intact. No focal deficits. LABORATORIES: White count 8.3, hemoglobin 8.0, platelets of 121, BUN 22.5, creatinine 6.83. DIAGNOSTIC DATA: Chest x-ray was performed, showed mild congestive cardiac failure. IMPRESSION AND PLAN: 1. Acute on chronic renal failure. 2. Likely pulmonary edema with volume overload. 3. Chronic respiratory failure with obesity hypoventilation syndrome. 4. Chronic atrial fibrillation. The patient will require: 1. Emergent hemodialysis. 2. Volume removal as tolerated. 3. Pulmonary toilet. 4. DVT and GI prophylaxis. Dictated By: SHARAD ELIAS MD SV/HUBERT Conf#: [id number] DID#: [id number] CC: SHANEL BHATT MD;*EndCC*
[2018-08-10] MEDS ORDERED: HEPARIN 1000 UNITS/ML 10 ML INJ CATHETER ONE (12:30)
[2018-08-10] MEDS ORDERED: SODIUM CHLORIDE 0.9% 1L BAG IV PRN (12:30)
[2018-08-10] MEDS ORDERED: MANNITOL 25% 50 ML IV PRN (12:30)
--- NOTE | 2018-08-10 13:59 | NUR ---
called [facility] for 3 day HD (Monday, Monday and Monday), confirmation number as follows: Monday - [id number] Monday - [id number] Monday - [id number]
--- NOTE | 2018-08-10 14:00 | NUR ---
Called Dr. Calloway's office to f/u regarding HD catheter placement per Dr. Guadarrama, left a message to the office's commodities clerk.
--- NOTE | 2018-08-10 16:32 | NUR ---
NUTRITION CONSULT: S: ALERT, SUPER MORBIDLY OBESE, GENERALIZED EDEMA TRACH, G-TUBE O: NPO, BUN/S.CREAT 225/6.83, FERRITIN 744, BNP 45998, TSH 8.280 LANTUS 23 U, ASPART MILD ALGO URINE OUTPUT 5 - 10 ML/HR RIGHT AND LEFT BUTTOCKS STAGE II BMI 45 EST NUTRITION NEED REF IBW 83.6: 21 HOWIE/1.0 - 1.1 GM/KG OR 1800 HOWIE/ 84 - 92 GM PROT/D A: INITIATING DIALYSIS. P: SUGGEST START REPLETE AT 30 ML//HR INCREASE BY 10 ML Q 8 HOURS TO GOAL 60 ML/HR PROVIDES 1440 HOWIE/92 GM PROT/1200 ML FREE WATER. GIVE WATER FLUSHES 30 ML Q 8 HOURS OR PER MD ADD VITAMIN C 500 MG, ZN04 220 MG ONE TAB/D X 14 DAYS.
--- NOTE | 2018-08-10 18:13 | NUR ---
Spoke with Dr. Calloway stated he will be here around 1929 for HD cath placement.
--- NOTE | 2018-08-10 18:13 | NUR ---
EOSS: c/o chest pain once triggered with frequent coughing resolved with Morphine x 1 dose given. With on and off speaking valve to trach collar, with moderate thick yellow secretions. BP benign, not on vasopressors. PEG clamped NO BM noted obtained 50 ml of cloudy urine. Wound care done. Pending HD cath placement for 3 days HD.
[2018-08-10] MEDS: HEPARIN 5,000 UNIT/1 ML VIAL SC SCH (21:00)
--- NOTE | 2018-08-10 22:40 | QN ---
Documentation Comment large body habitus. Unable to place a groin SANAZ Vu MD Aug 10, 2018 22:40
[2018-08-11] VITALS (31 sets, daily range): BP systolic 67–138; BP diastolic 42–96; PULSE 75–92; RESP 15–27
[2018-08-11] MEDS: INSULIN GLARGINE [LANTus] (100 UNITS/ML) SYG SC SCH ×2 (01:01→21:06)
[2018-08-11] MEDS: LORAZEPAM 2 MG INJ IV PRN ×2 (01:02→11:18)
[2018-08-11] MEDS: ACCU-CHEK XX SCH (02:00)
[2018-08-11] MEDS: BUMETANIDE 1 MG INJ IV SCH ×2 (06:08→17:45)
[2018-08-11] MEDS: INSULIN ASPART [NOVOLOG] 3 ML PEN SC SCH ×4 (07:35→20:57)
[2018-08-11] MEDS: HEPARIN 5,000 UNIT/1 ML VIAL SC SCH ×2 (09:00→21:00)
[2018-08-11] MEDS: NEBIVOLOL 5 MG TAB PO SCH (09:00)
[2018-08-11] MEDS ORDERED: NEBIVOLOL 5 MG TAB PO SCH (09:00)
[2018-08-11] MEDS: FOLIC ACID 1 MG TAB PO SCH (09:37)
[2018-08-11] MEDS: FAMOTIDINE 20 MG INJ IV SCH (09:37)
[2018-08-11] MEDS: ALLOPURINOL 100 MG TAB PO SCH (09:37)
[2018-08-11] MEDS: CYANOCOBALAMIN 100 MCG TAB PO SCH (09:37)
[2018-08-11] MEDS: CHOLECALCIFEROL 1,000 UNIT TAB PO SCH (09:37)
--- NOTE | 2018-08-11 09:39 | PN ---
Date/Time of Note Date/Time of Note DATE: 08/11/18 TIME: 09:01 Assessment/Plan VTE Prophylaxis Risk score (from Ns)>0 risk: 7 SCD applied (from Ns): Yes Pharmacological prophylaxis: NA/contraindicated (has been on Eliquis until admission and plan for Monty placement ) Pharm contraindication: other Lines/Catheters IV [facility]ter [facility]from [facility] Peripheral IV Urinary Cath still in place: Yes Reason Cath still needed: other (indicate) (Renal failure ) Assessment/Plan Assessment/Plan 63-year-old male with: 1. Volume overload, anasarca, pulmonary edema, in setting of known diastolic heart failure and advance kidney disease, patient currently in acute on chronic renal failure Appreciate nephrology recommendations, plan is for initiation of HD, unfortunately unable to have Monty placed last night by vascular surgery, orders in for stat Monty catheter placement this morning by IR in order to initiate HD ISAIAS. 2. Acute kidney injury on chronic kidney disease, patient with uremia, metabolic acidosis, mild hyperkalemia, volume overload with anasarca and pulmonary edema. Patient known to have advanced chronic kidney disease, also has hyperuricemia/gout, uric acid is up to 14.5 yesterday. Patient started on allopurinol yesterday. Awaiting Monty placement this morning for initiation of HD. 3. Chronic respiratory failure secondary to becoming and syndrome, status post tracheostomy and gastrostomy tube placement, patient with an acute component on this admission secondary to volume overload and pulmonary edema. Currently on trach collar, to be continued. HD initiation pending for end-stage renal disease and would help with volume management. Pulmonary following. 4. Diastolic heart failure, unclear ejection fraction, questionable valvular disease. 2D echocardiogram pending. Currently in volume overload, volume management with HD hopefully to be initiated today. 5. Atrial fibrillation, chronic, rate controlled currently. Holding of Eliquis for now as patient possibly will need dialysis catheter placed. Also will need renal dosing of Eliquis once ready to go back on it. On amiodarone and bisoprolol as tolerated. 7. Chronic anemia, apparently at discharge from his last hospitalization his he moglobin was close to 7. Patient has microcytosis, he is on supplemental iron and folic acid along with B12 as an outpatient. He did receive 1 unit of packed red blood cells in the emergency department. TSH elevated with normal free T4, iron studies consistent with iron deficiency. Patient already on supplemental iron along with folic acid and B12. Will recheck TFTs in a week or 2 once patient on dialysis. Stool occult blood pending Follow-up with [facility] from [facility] patient may have had a GI workup already done. If stool occult blood and negative, likely not to blood loss from GI source. 8. Diabetes mellitus, insulin requiring, A1c 5.8, continue current insulin regimen. 9. Gout/hyperuricemia, uric acid up to 14.5. On allopurinol now. Renal ultrasound negative for any obstructive disease. 10. Hypertension: Actually found to be slightly hypotensive, may need to hold bisoprolol. 11. Morbid obesity with obstructive sleep apnea and pickwickian syndrome req uiring tracheostomy for chronic respiratory failure. Trach collar currently Prophylaxis: Heparin for DVT prophylaxis, Pepcid for GI prophylaxis Disposition: Patient awaiting Monty catheter placement today hopefully will be successful, initiation of hemodialysis once line placed for both volume m anagement and also electrolyte corrections. Appreciate assistance from pulmonary and nephrology. Result Diagram: 08/11/18 0443 08/11/18 044 Results 24hrs Laboratory Tests Test 08/10/18 10:04 08/10/18 11:37 08/10/18 13:47 08/10/18 15:04 Blood Gas Blood arterial Specimen Source Arterial Blood 08/10/2018 11:15: Date Drawn 44 AM Arterial Blood pH 7.345 L (Temp corrected) Arterial Blood 67.3 H pCO2 (Temp correct) Arterial Blood 87.1 pO2 (Temp corrected) Arterial Blood 35.9 H HCO3 Arterial Blood 8.8 H Base Excess Arterial Blood 95.6 Oxygen Saturation Lalo Test ACCEPTAB Arterial Blood Right Radial Gas Puncture Site Arterial 0.9 Blood Carboxyhemo globin Arterial Blood 0.5 Methemoglobin Blood Gas A-a O2 33.1 H Differential Oxyhemoglobin 94.3 Percent Blood Gas 37.0 Temperature Blood Gas TRACH COLLAR Modality FiO2 28.0 Blood Gas TM Notified Whom Blood Gas 08/10/2018 11:24: Notified Time 21 AM Bedside Glucose 180 Urine Color AMOS Urine Clarity TURBID A Urine pH 5.0 Urine Specific 1.018 [place] Urine Ketones NEGATIVE Urine Nitrite NEGATIVE Urine Bilirubin NEGATIVE Urine NEGATIVE Urobilinogen Urine Leukocyte 3+ H Esterase Urine Microscopic > 182 H RBC Urine Microscopic > 182 H WBC Urine Squamous FEW Epithelial Cells Urine Renal FEW A Epithelial Cells Urine Bacteria MANY A Urine Mucus FEW A Urine Eosinophils 1.0 % Urine Hemoglobin 3+ H Urine Glucose NEGATIVE Urine Total 2+ H Protein Creatine Kinase 38 Creatine Kinase 16.7 Index Creatinine Kinase 6.34 H MB (Mass) Troponin I 0.053 Hepatitis B NEGATIVE Surface Antigen Hepatitis B Core NEGATIVE Total Antibody Hepatitis C NEGATIVE Antibody Test 08/10/18 17:31 08/10/18 23:51 08/11/18 04:43 Bedside Glucose 160 141 White Blood Count 9.5 Red Blood Count 2.56 L Hemoglobin 7.6 L Hematocrit 25.9 L Mean Corpuscular 101.2 H Volume Mean Corpuscular 29.7 Hemoglobin Mean Corpuscular 29.3 L Hemoglobin Concen t Red Cell 20.8 H Distribution Width Platelet Count 136 L Mean Platelet 12.2 H Volume Immature 0.400 Granulocytes % Neutrophils % 86.0 H Lymphocytes % 6.3 L Monocytes % 4.0 Eosinophils % 3.0 Basophils % 0.3 Nucleated Red 0.0 Blood Cells % Immature 0.040 H Granulocytes # Neutrophils # 8.2 H Lymphocytes # 0.6 L Monocytes # 0.4 Eosinophils # 0.3 Basophils # 0.0 Nucleated Red 0.0 Blood Cells # Sodium Level 135 Potassium Level 5.3 H Chloride Level 84 L Carbon Dioxide 35 H Level Anion Gap 16 H Blood Urea 228 H Nitrogen Creatinine 7.70 H Est Glomerular 7 L Filtrat Rate mL/min Glucose Level 121 Calcium Level 8.4 Magnesium Level 3.4 H Triglycerides 154 H Level Cholesterol Level 91 L LDL Cholesterol, 41 Calculated HDL Cholesterol 19 L Cholesterol/HDL 4.7 Ratio Subjective 24 Hr Interval Summary Free Text/Dictation Patient awake and alert. Renal function still not recovering. He needs initiation of HD. Vascular surgery attempted placement of right femoral Monty overnight but unable to do so, apparently the wire was coiling. Monty placement by IR is ordered stat this morning. Exam/Review of Systems Vital Signs Vitals Vital Signs Date Temp Pulse Resp B/P (MAP) Pulse Ox O2 O2 Flow FiO2 Time Delivery Rate 08/11/18 77 17 99/65 (76) 96 06:00 08/11/18 98.8 Nasal 04:30 Cannula T Tube 08/11/18 5.0 04:30 08/11/18 28 02:08 Intake and Output 08/10/18 08/10/18 08/11/18 1515:00 23:00 07:00 IntakeIntake Total 0 ml 0 ml 0 ml OutputOutput Total 25 ml 5 ml 350 ml BalanceBalance -25 ml -5 ml -350 ml Exam Constitutional: alert, oriented, well developed, obese (morbid ) Respiratory: diminished breath sounds (Bilaterally), other (On trach collar) Cardiovascular: irregular rhythm (Chronic atrial fibrillation) Gastrointestinal: soft, non-tender Musculoskeletal: swelling (Anasarca) Extremities: normal pulses, other (Anasarca) Neurological: [employer] II-XII intact, nl mental status, lethargic, other (Status post tracheostomy) Medications Medications Current Medications IV Flush (NS 3 ml) 3 ml PER PROTOCOL IV ; Start 08/10/18 at 09:30 Lorazepam (Ativan) 0.5 mg Q6H PRN IV ANXIETY Last administered on 08/11/18at 01:02; Admin Dose 0.5 MG; Start 08/10/18 at 09:30 Ondansetron HCl (Zofran Inj) 4 mg Q6H PRN IV NAUSEA AND/OR VOMITING; Start 08/10/18 at 09:30 Acetaminophen (Tylenol Tab) 650 mg Q6H PRN PO PAIN LEVEL 1-3 OR FEVER; Start 08/10/18 at 09:30 Morphine Sulfate (morphine SULFATE (PF)) 2 mg Q4H PRN IV PAIN LEVEL 7-10 Last administered on 08/10/18at 17:26; Admin Dose 2 MG; Start 08/10/18 at 09:30 Bisacodyl (Dulcolax Supp) [address] CONSTIPATION; Start 08/10/18 at 09:30 Famotidine (Pepcid Iv) 20 mg DAILY IV Last administered on 08/10/18at 11:40; Admin Dose 20 MG; Start 08/10/18 at 09:30 Heparin Sodium (Porcine) (Heparin (5000 Units/1ml)) 5,000 unit Q12 SC ; Start 08/10/18 at 21:00 Amiodarone HCl (Cordarone) 200 mg DAILY PO ; Start 08/11/18 at 09:00 Cholecalciferol (Vitamin D) 1,000 unit DAILY PO ; Start 08/11/18 at 09:00 Cyanocobalamin (Vitamin B12) 100 mcg DAILY PO ; Start 08/11/18 at 09:00 Folic Acid (Folic Acid) 1 mg DAILY PO ; Start 08/11/18 at 09:00 Allopurinol (Zyloprim) 100 mg DAILY PO ; Start 08/11/18 at 09:00 Diagnostic Test (Pha) (Accu-Chek) 1 ea 02 XX Last administered on 08/11/18at 02:00; Admin Dose 1 EA; Start 08/11/18 at 02:00 Insulin Aspart (Novolog Insulin Pen) NOVOLOG *MILD* ALGORITHM WITH MEALS BEDTIME SC Last administered on 08/10/18at 11:47; Admin Dose 1 UNIT; Start 08/10/18 at 11:30 Miscellaneous Information 1 ea NOTE XX ; Start 08/10/18 at 10:30 Glucose (Glutose) 15 gm Q15M PRN PO DECREASED GLUCOSE; Start 08/10/18 at 10:30 Glucose (Glutose) 22.5 gm Q15M PRN PO DECREASED GLUCOSE; Start 08/10/18 at 10:30 Dextrose (D50w Syringe) 25 ml Q15M PRN IV DECREASED GLUCOSE; Start 08/10/18 at 10:30 Dextrose (D50w Syringe) 50 ml Q15M PRN IV DECREASED GLUCOSE; Start 08/10/18 at 10:30 Glucagon (Glucagen) 1 mg Q15M PRN IM DECREASED GLUCOSE; Start 08/10/18 at 10:30 Glucose (Glutose) 15 gm Q15M PRN BUCCAL DECREASED GLUCOSE; Start 08/10/18 at 10:30 Miscellaneous Medication (Bystolic) 5 mg DAILY PO ; Start 08/11/18 at 09:00 Insulin Glargine (Lantus) 23 units DAILY@2000 SC Last administered on 08/11/18at 01:01; Admin Dose 23 UNITS; Start 08/10/18 at 20:00 Mannitol 50 ml @ 50 mls/5 min WITH DIALYSIS PRN IV BUN more than 100; Start 08/10/18 at 12:30 Albumin Human 100 ml @ 100 mls/hr WITH DIALYSIS PRN IV SBP less than 90 mm hg ; Start 08/10/18 at 12:30 Sodium Chloride (NS) -To prime the dialy... DIRECTED FOR HD PRN IV SBP less than 90 mm hg ; Start 08/10/18 at 12:30 Heparin Sodium (Porcine) (Heparin (1000 Units/ml)) 4,000 unit AFTER DIALYSIS CATHETER ; Start 08/10/18 at 12:30; Stop 08/11/18 at 12:29 Bumetanide (Bumex) 2 mg BID DIURETICS IV Last administered on 08/11/18at 06:08; Admin Dose 2 MG; Start 08/11/18 at 06:00 EJ GRADY Aug 11, 2018 09:11
[2018-08-11] MEDS: AMIODARONE 200 MG TAB PO SCH (09:44)
[2018-08-11] MEDS ORDERED: HEPARIN (10 UNITS/ML) 5ML SYG ONE (10:50)
--- NOTE | 2018-08-11 11:04 | NUR ---
NON -TUNNELED CVC- THIS NURSE CONTACTED IR PHYSICIAN PASSENGER VESSEL CHEF FOR STAT NON-TUNNELED CVC. PT INFORMATION GIVEN TO DR SWEET INCLUDING INR-1.82. DR SWEET INFORMED THIS NURSE THAT INR IS ELEVATED AND PROCEDURE CAN NOT BE COMPLETED AT THIS TIME. DR SWEET INFORMED THIS NURSE TO CONTACT CARDIO VASCULAR SURGEON PASSENGER VESSEL CHEF, DR MADDOX, IF AIMEE CATHETER MUST BE DONE TODAY AND WAITING FOR ELEVATED INR TO BE TREATED. DR GRADY NOTIFIED OF ABOVE INFORMATION AND WILL GIVE INFORMATION TO DR WERNER. ICU PRIMARY NURSE FOR PT NOTIFIED.
--- NOTE | 2018-08-11 12:03 | NUR ---
WOUND CARE CONSULTATION NOTE: This is a 63 year old male with history of chronic tracheostomy, CKD now requiring hemodialysis, CHF, chronic anemia, and DM who presented for acute CHF and worsening kidney failure. Patient was seen by vascular surgeon Dr. Calloway for replacement of CVC for HD. Patient is morbidly obese weighing approx 343lbs, he does require moderate to maximum assistance for turning. Incontinent of bowel, patient is currently anuric per nursing. ASSESSMENT: 1. Bilateral ischial wounds stage 3 pressure injuries. There is more exposure of pale yellow adipose tissue in the Right ischial vs the left. Both wounds were present on admission but documented as stage 1 and stage 2 respectively. Wounds measuring approx [id number] each with R>L. There is blanchable redness in the periwound with incontinent-associated dermatitis. The sacrococcyx appears to be dry scaling white patches which are intact, possible etiologies could include eczema vs contact dermatitis 2. Left trach site small dry stable scab 3. Right chest wall full thickness wound obscured by pale yellow adherent slough vs adipose tissue. Not clear as there might have been a prior central line which developed into a full thickness wound s/p incision. All wounds were noted to be present on admission. RECOMMENDATION: -Recommendation includes cleansing wound sites with normal saline or mild soap and water and pat dry. May apply Santyl to bilateral ischial wounds as well as right chest wall wound. Cover with foam border dressing daily. -Turn and reposition Q2H and PRN -Elevate bilateral legs and heels on pillows, one pillow per leg -Continue monik-care using skin barrier cream to the perineum -Keep HOB >30 degrees, unless medically contraindicated -Follow trach care cleansing per protocol with Respiratory Therapist. Apply foam border dressing for protection Patient was seen and examined with Primary RN. RN to obtain further recommended treatment orders from primary MD. Mona Oswald, MSN, RN, CCRN, WCC
--- NOTE | 2018-08-11 12:32 | CONS ---
Date/Time of Note Date/Time of Note DATE: 08/11/18 TIME: 12:28 Consult Date/Type/Reason Admit Date/Time Aug 10, 2018 at 05:03 Initial Consult Date 08/10/18 Type of Consultation: Pulm/CCM Requesting Provider: EJ GRADY Subjective Doing reasonable well on trach collar. Objective Vital Signs Date Temp Pulse Resp B/P (MAP) Pulse Ox O2 O2 Flow FiO2 Time Delivery Rate 08/11/18 86 17 94 12:00 08/11/18 5.0 28 11:11 08/11/18 Aerosol 10:20 T Tube 08/11/18 67/46 (53) 10:00 08/11/18 98.4 08:00 Intake and Output 08/10/18 08/10/18 08/11/18 1515:00 23:00 07:00 IntakeIntake Total 0 ml 0 ml 0 ml OutputOutput Total 25 ml 5 ml 350 ml BalanceBalance -25 ml -5 ml -350 ml Exam HEENT: Neck supple; no JVD; no LAD; trach site clear CVS: RRR, S1 and S2 CHEST: Distant breath sounds ABD: Obese, soft, NT, + BS EXT: No c/c: + edema Results/Medications Result Diagram: 08/11/183 08/11/18 0443 Results 24 hrs Laboratory Tests Test 08/10/18 13:47 08/10/18 15:04 08/10/18 17:31 08/10/18 23:51 Urine Color AMOS Urine Clarity TURBID A Urine pH 5.0 Urine Specific 1.018 [place] Urine Ketones NEGATIVE Urine Nitrite NEGATIVE Urine Bilirubin NEGATIVE Urine Urobilinogen NEGATIVE Urine Leukocyte 3+ H Esterase Urine Microscopic > 182 H RBC Urine Microscopic > 182 H WBC Urine Squamous FEW Epithelial Cells Urine Renal FEW A Epithelial Cells Urine Bacteria MANY A Urine Mucus FEW A Urine Eosinophils % 1.0 Urine Hemoglobin 3+ H Urine Glucose NEGATIVE Urine Total Protein 2+ H Creatine Kinase 38 Creatine Kinase 16.7 Index Creatinine Kinase MB 6.34 H (Mass) Troponin I 0.053 Hepatitis B Surface NEGATIVE Antigen Hepatitis B Core NEGATIVE Total Antibody Hepatitis C Antibody NEGATIVE Bedside Glucose 160 141 Test 08/11/18 04:43 08/11/18 09:40 08/11/18 09:43 08/11/18 12:22 White Blood Count 9.5 Red Blood Count 2.56 L Hemoglobin 7.6 L Hematocrit 25.9 L Mean Corpuscular 101.2 H Volume Mean Corpuscular 29.7 Hemoglobin Mean Corpuscular 29.3 L Hemoglobin Concent Red Cell 20.8 H Distribution Width Platelet Count 136 L Mean Platelet Volume 12.2 H Immature 0.400 Granulocytes % Neutrophils % 86.0 H Lymphocytes % 6.3 L Monocytes % 4.0 Eosinophils % 3.0 Basophils % 0.3 Nucleated Red Blood 0.0 Cells % Immature 0.040 H Granulocytes # Neutrophils # 8.2 H Lymphocytes # 0.6 L Monocytes # 0.4 Eosinophils # 0.3 Basophils # 0.0 Nucleated Red Blood 0.0 Cells # Sodium Level 135 Potassium Level 5.3 H Chloride Level 84 L Carbon Dioxide Level 35 H Anion Gap 16 H Blood Urea Nitrogen 228 H Creatinine 7.70 H Est Glomerular 7 L Filtrat Rate mL/min Glucose Level 121 Calcium Level 8.4 Magnesium Level 3.4 H Triglycerides Level 154 H Cholesterol Level 91 L LDL Cholesterol, 41 Calculated HDL Cholesterol 19 L Cholesterol/HDL 4.7 Ratio Prothrombin Time 19.3 H Prothrombin Time 1.5 Ratio INR International 1.62 Normalized Ratio Activated 34.8 Partial Thromboplast Time Bedside Glucose 132 132 Medications Current Medications IV Flush (NS 3 ml) 3 ml PER PROTOCOL IV ; Start 08/10/18 at 09:30 Lorazepam (Ativan) 0.5 mg Q6H PRN IV ANXIETY Last administered on 08/11/18at 11:18; Admin Dose 0.5 MG; Start 08/10/18 at 09:30 Ondansetron HCl (Zofran Inj) 4 mg Q6H PRN IV NAUSEA AND/OR VOMITING; Start 08/10/18 at 09:30 Acetaminophen (Tylenol Tab) 650 mg Q6H PRN PO PAIN LEVEL 1-3 OR FEVER; Start 08/10/18 at 09:30 Morphine Sulfate (morphine SULFATE (PF)) 2 mg Q4H PRN IV PAIN LEVEL 7-10 Last administered on 08/10/18at 17:26; Admin Dose 2 MG; Start 08/10/18 at 09:30 Bisacodyl (Dulcolax Supp) 10 mg DAILY PRN [place] CONSTIPATION; Start 08/10/18 at 09:30 Famotidine (Pepcid Iv) 20 mg DAILY IV Last administered on 1/19/19at 09:37; Admin Dose 20 MG; Start 08/10/18 at 09:30 Heparin Sodium (Porcine) (Heparin (5000 Units/1ml)) 5,000 unit Q12 SC ; Start 08/10/18 at 21:00 Amiodarone HCl (Cordarone) 200 mg DAILY PO Last administered on 08/11/18 09:44; Admin Dose 200 MG; Start 08/11/18 at 09:00 Cholecalciferol (Vitamin D) 1,000 unit DAILY PO Last administered on 08/11/18 09:37; Admin Dose 1,000 UNIT; Start 08/11/18 at 09:00 Cyanocobalamin (Vitamin B12) 100 mcg DAILY PO Last administered on 08/11/18 09:37; Admin Dose 100 MCG; Start 08/11/18 at 09:00 Folic Acid (Folic Acid) 1 mg DAILY PO Last administered on 08/11/18 09:37; Admin Dose 1 MG; Start 08/11/18 at 09:00 Allopurinol (Zyloprim) 100 mg DAILY PO Last administered on 08/11/18 09:37; Admin Dose 100 MG; Start 08/11/18 at 09:00 Diagnostic Test (Pha) (Accu-Chek) 1 ea 02 XX Last administered on 08/11/18at 02:00; Admin Dose 1 EA; Start 08/11/18 at 02:00 Insulin Aspart (Novolog Insulin Pen) NOVOLOG *MILD* ALGORITHM WITH MEALS BEDTIME SC Last administered on 08/10/18at 11:47; Admin Dose 1 UNIT; Start 08/10/18 at 11:30 Miscellaneous Information 1 ea NOTE XX ; Start 08/10/18 at 10:30 Glucose (Glutose) 15 gm Q15M PRN PO DECREASED GLUCOSE; Start 08/10/18 at 10:30 Glucose (Glutose) 22.5 gm Q15M PRN PO DECREASED GLUCOSE; Start 08/10/18 at 10:30 Dextrose (D50w Syringe) 25 ml Q15M PRN IV DECREASED GLUCOSE; Start 08/10/18 at 10:30 Dextrose (D50w Syringe) 50 ml Q15M PRN IV DECREASED GLUCOSE; Start 08/10/18 at 10:30 Glucagon (Glucagen) 1 mg Q15M PRN IM DECREASED GLUCOSE; Start 08/10/18 at 10:30 Glucose (Glutose) 15 gm Q15M PRN BUCCAL DECREASED GLUCOSE; Start 08/10/18 at 10:30 Miscellaneous Medication (Bystolic) 5 mg DAILY PO ; Start 08/11/18 at 09:00 Insulin Glargine (Lantus) 23 units DAILY@2000 SC Last administered on 08/11/18at 01:01; Admin Dose 23 UNITS; Start 08/10/18 at 20:00 Mannitol 50 ml @ 50 mls/5 min WITH DIALYSIS PRN IV BUN more than 100; Start 08/10/18 at 12:30 Albumin Human 100 ml @ 100 mls/hr WITH DIALYSIS PRN IV SBP less than 90 mm hg ; Start 08/10/18 at 12:30 Sodium Chloride (NS) -To prime the dialy... DIRECTED FOR HD PRN IV SBP less than 90 mm hg ; Start 08/10/18 at 12:30 Heparin Sodium (Porcine) (Heparin (1000 Units/ml)) 4,000 unit AFTER DIALYSIS CATHETER ; Start 08/10/18 at 12:30; Stop 08/11/18 at 12:29 Bumetanide (Bumex) 2 mg BID DIURETICS IV Last administered on 08/11/18at 06:08; Admin Dose 2 MG; Start 08/11/18 at 06:00 Piperacillin Sod/ Tazobactam Sod 100 ml @ 200 mls/hr Q8 IVPB ; Start 08/11/18 at 14:00 Assessment/Plan Additional Assessment/Plan IMP: 1. Acute on chronic renal failure 2. ADHF/Volume overload 3. Acute on chronic Hypercapnic Resp Failure 4. Chronic atrial fibrillation 5. OHS 6. Anemia RECS: 1. Transition to PMV as tolerated 2. ST eval 3. Cont. HD/UF 4. Am labs/CXR/ABG 35 min cc time PADMINI SELF MD Aug 11, 2018 12:32
--- NOTE | 2018-08-11 12:38 | NUR ---
Called Fartun, and made him aware about Dialysis order for today. New norma cath was placed .
--- NOTE | 2018-08-11 12:50 | NUR ---
spoke with Dr. Wilks regarding diet status and Dr. Torres was able to place Monty catheter. She said for dietary consult. Orders noted and carried out. Addendum: 08/11/18 at 1734 by GUILLERMO JUDGE RN Central line was placed by Brian
[2018-08-11] MEDS ORDERED: COLLAGENASE 5 GM (UD JAR) TOP PRN (13:00)
[2018-08-11] MEDS: COLLAGENASE 5 GM (UD JAR) TOP SCH (13:00)
[2018-08-11] MEDS ORDERED: PIPER-TAZO 3.375 GM IV (PMX) 100 ML IVPB SCH (14:00)
--- NOTE | 2018-08-11 14:22 | OPR ---
DATE OF OPERATION: PREOPERATIVE DIAGNOSIS: Renal failure. POSTOPERATIVE DIAGNOSIS: Renal failure. PROCEDURE: Left femoral hemodialysis catheter placement. SURGEON: Oz Pineda MD ANESTHESIA: Local. CONSENT: Risks, benefits, complications, alternative therapies explained to the patient, consent obt ained. OPERATIVE TECHNIQUE: Access was gained in the left common femoral vein. Guidewire was advanced thro [facility] without any difficulty. Subcutaneous tissues were dilated. A 20 cm dialysis catheter advanced o hal a guidewire, secured to skin using silk sutures. Both ports of the catheter were aspirated and i njected using saline solution. Appropriate dressings applied. The patient tolerated the procedure w ell. Dictated By: OZ PINEDA MD FM/NTS Conf#: [id number] DID#: [id number] CC: SHANEL BHATT MD;*EndCC*
--- NOTE | 2018-08-11 14:30 | CONS ---
DATE OF ADMISSION: 08/10/2018 DATE OF CONSULTATION: REASON FOR CONSULTATION: I was asked to evaluate this patient for the placement of a dialysis cathet er. HISTORY OF PRESENT ILLNESS: A 63-year-old male with morbid obesity, volume overload, acute renal ins ufficiency, respiratory failure. Patient has a tracheostomy, will need dialysis for volume managemen t. Access was tried on the right femoral, unsuccessful. The patient's hemoglobin is 7.6, platelet c ount is 136, INR 1.62, BUN ____, creatinine 7.7, potassium 5.3. PAST MEDICAL HISTORY: Hypertension, hyperlipidemia, diabetes, gout, hypertension, morbid obesity, at rial fibrillation, heart failure. PAST SURGICAL HISTORY: Tracheostomy. ALLERGIES: NONE. SOCIAL HISTORY: Unable to obtain. PHYSICAL EXAMINATION: GENERAL: The patient is awake, responds appropriately. VITAL SIGNS: Blood pressure is 99/65, pulse is 77, respirations 17. NECK: Tracheostomy is in place. ABDOMEN: Obese. CARDIOVASCULAR: Irregularly irregular. LUNGS: Clear. IMPRESSION: Renal failure. RECOMMENDATIONS: We will proceed with placement of a dialysis catheter. Risks, benefits, complicati ons, alternative therapies explained to the patient. All questions answered. Dictated By: RITCHIE MADDOX MD FM/NTS Conf#: [id number] DID#: [id number] CC: SHANEL BHATT MD;*EndCC*
[2018-08-11] MEDS: PIPER-TAZO 2.25 GM (PMX) 50 ML IVPB SCH ×2 (17:45→21:09)
--- NOTE | 2018-08-11 18:39 | QN ---
Documentation Comment Central line exchanged to 20 cm Monty cath RITCHIE MADDOX MD Aug 11, 2018 18:39
--- NOTE | 2018-08-11 19:00 | NUR ---
EOSS Patient is alert, oriented. Able to ask help for needs by lip movement. Denies pain. Repositioned Q2H. Wound dressing done. Dr. Torres able to insert Monty cath with two lumens. Called [facility] for Stat Dialysis. All needs attended.
--- NOTE | 2018-08-11 20:46 | NUR ---
nurses notes: other RN followed up [facility] around 1950 regarding STAT Hemodialysis order for this pt. , this nurse followed up again and spoke with Shaina and said "the HD nurse will be there in 20 minutes", confirmation number [id number]. family at bedside made aware.
--- NOTE | 2018-08-11 21:03 | CONS ---
Date/Time of Note Date/Time of Note DATE: 08/11/18 TIME: 21:03 Assessment/Plan Assessment/Plan Assessment/Plan 1. acute Fluid overload with worsening renal failure, Oliguric to anuric- progressed to ESRD 2. Acute Uremia with BUN 223 on admission 3. SHAILA on CKD IV due to ATN 4. acute on chronic hypoxemix respiratory failure currenlty back on Vent, S/p tracheostomy 5. Anemia of ESRD 6. Hyperuricemia 7. Morbid to severe obesity 8. Pickwickian syndrome Plan: pt has acute uremia with Fluid overload, BUN/Cr 228/7.7, K 5.3- need HD initiation pt has severe obsesity with Anasarca, Yesterday Vascular surgeon Attempted Monty catheter mutliple times- unsuccessful. Today initially attempted to Place monty but unfortunately Central line was placed which was switched to Monty, Awaiting HD still, Floor nurse has informed [facility] to do HD river due to BUN 228 Paln is to do 2 hr today and 3 hr tomrorow- There is a mannitol ordered to be given with HD today and tomorrow Allopurinol 100mg po daily Bumex 2 mg iV BID will follow up Due to pt body habitus it was very difficult vascular access appreciate help from Dr. Pineda Result Diagram: 08/11/183 08/11/18 0443 Results 24hrs Laboratory Tests Test 08/10/18 23:51 08/11/18 04:43 08/11/18 09:40 08/11/18 09:43 Bedside Glucose 141 132 White Blood Count 9.5 Red Blood Count 2.56 L Hemoglobin 7.6 L Hematocrit 25.9 L Mean Corpuscular 101.2 H Volume Mean Corpuscular 29.7 Hemoglobin Mean Corpuscular 29.3 L Hemoglobin Concent Red Cell 20.8 H Distribution Width Platelet Count 136 L Mean Platelet Volume 12.2 H Immature 0.400 Granulocytes % Neutrophils % 86.0 H Lymphocytes % 6.3 L Monocytes % 4.0 Eosinophils % 3.0 Basophils % 0.3 Nucleated Red Blood 0.0 Cells % Immature 0.040 H Granulocytes # Neutrophils # 8.2 H Lymphocytes # 0.6 L Monocytes # 0.4 Eosinophils # 0.3 Basophils # 0.0 Nucleated Red Blood 0.0 Cells # Sodium Level 135 Potassium Level 5.3 H Chloride Level 84 L Carbon Dioxide Level 35 H Anion Gap 16 H Blood Urea Nitrogen 228 H Creatinine 7.70 H Est Glomerular 7 L Filtrat Rate mL/min Glucose Level 121 Calcium Level 8.4 Magnesium Level 3.4 H Triglycerides Level 154 H Cholesterol Level 91 L LDL Cholesterol, 41 Calculated HDL Cholesterol 19 L Cholesterol/HDL 4.7 Ratio Prothrombin Time 19.3 H Prothrombin Time 1.5 Ratio INR International 1.62 Normalized Ratio Activated 34.8 Partial Thromboplast Time Test 08/11/18 12:22 08/11/18 18:59 Bedside Glucose 132 114 Consultation Date/Type/Reason Admit Date/Time Aug 10, 2018 at 05:03 Initial Consult Date 08/10/18 Type of Consult NEPHROLOGY Requesting Provider: EJ GRADY 24 HR Interval Summary Free Text/Dictation s/p Monty catheter placement today awaiting HD still, pt remained on Ventilator Exam/Review of Systems Vital Signs Vitals Vital Signs Date Temp Pulse Resp B/P (MAP) Pulse Ox O2 O2 Flow FiO2 Time Delivery Rate 08/11/18 81 17 105/70 19:00 (82) 08/11/18 99 18:30 08/11/18 Aerosol 5.0 28 16:25 T Tube 08/11/18 97.8 12:00 Intake and Output 08/10/18 08/10/18 08/11/18 1515:00 23:00 07:00 IntakeIntake Total 0 ml 0 ml 0 ml OutputOutput Total 25 ml 5 ml 350 ml BalanceBalance -25 ml -5 ml -350 ml Exam Constitutional: alert, awake, morbidly obese, Head: normocephalic, atraumatic ENMT: other (Status post tracheostomy) Respiratory: diminished breath sounds (Bilaterally, patient with congestion.) Cardiovascular: irregular rhythm (Controlled atrial fibrillation) Gastrointestinal: soft, non-tender Genitourinary - Male: other (Only catheter in place with minimal urine output) Musculoskeletal: Diffuse anasarca Extremities: normal pulses, other (Anasarca) 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, nl mental status, other (Bedbound but moving all 4 extremities, currently with tracheostomy) Medications Medications Current Medications IV Flush (NS 3 ml) 3 ml PER PROTOCOL IV ; Start 08/10/18 at 09:30 Lorazepam (Ativan) 0.5 mg Q6H PRN IV ANXIETY Last administered on 08/11/18 11:18; Admin Dose 0.5 MG; Start 08/10/18 at 09:30 Ondansetron HCl (Zofran Inj) 4 mg Q6H PRN IV NAUSEA AND/OR VOMITING; Start 08/10/18 at 09:30 Acetaminophen (Tylenol Tab) 650 mg Q6H PRN PO PAIN LEVEL 1-3 OR FEVER; Start 08/10/18 at 09:30 Morphine Sulfate (morphine SULFATE (PF)) 2 mg Q4H PRN IV PAIN LEVEL 7-10 Last administered on 08/10/18 17:26; Admin Dose 2 MG; Start 08/10/18 at 09:30 Bisacodyl (Dulcolax Supp) 10 mg DAILY PRN [place] CONSTIPATION; Start 08/10/18 at 09:30 Famotidine (Pepcid Iv) 20 mg DAILY IV Last administered on 08/11/18 09:37; Admin Dose 20 MG; Start 08/10/18 at 09:30 Heparin Sodium (Porcine) (Heparin (5000 Units/1ml)) 5,000 unit Q12 SC ; Start 08/10/18 at 21:00 Amiodarone HCl (Cordarone) 200 mg DAILY PO Last administered on 08/11/18 09:44; Admin Dose 200 MG; Start 08/11/18 at 09:00 Cholecalciferol (Vitamin D) 1,000 unit DAILY PO Last administered on 08/11/18 09:37; Admin Dose 1,000 UNIT; Start 08/11/18 at 09:00 Cyanocobalamin (Vitamin B12) 100 mcg DAILY PO Last administered on 08/11/18 09:37; Admin Dose 100 MCG; Start 08/11/18 at 09:00 Folic Acid (Folic Acid) 1 mg DAILY PO Last administered on 08/11/18 09:37; Admin Dose 1 MG; Start 08/11/18 at 09:00 Allopurinol (Zyloprim) 100 mg DAILY PO Last administered on 08/11/18 09:37; Admin Dose 100 MG; Start 08/11/18 at 09:00 Diagnostic Test (Pha) (Accu-Chek) 1 ea 02 XX Last administered on 08/11/18 02:00; Admin Dose 1 EA; Start 08/11/18 at 02:00 Insulin Aspart (Novolog Insulin Pen) NOVOLOG *MILD* ALGORITHM WITH MEALS BEDTIME SC Last administered on 08/10/18at 11:47; Admin Dose 1 UNIT; Start 08/10/18 at 11:30 Miscellaneous Information 1 ea NOTE XX ; Start 08/10/18 at 10:30 Glucose (Glutose) 15 gm Q15M PRN PO DECREASED GLUCOSE; Start 08/10/18 at 10:30 Glucose (Glutose) 22.5 gm Q15M PRN PO DECREASED GLUCOSE; Start 08/10/18 at 10:30 Dextrose (D50w Syringe) 25 ml Q15M PRN IV DECREASED GLUCOSE; Start 08/10/18 at 10:30 Dextrose (D50w Syringe) 50 ml Q15M PRN IV DECREASED GLUCOSE; Start 08/10/18 at 10:30 Glucagon (Glucagen) 1 mg Q15M PRN IM DECREASED GLUCOSE; Start 08/10/18 at 10:30 Glucose (Glutose) 15 gm Q15M PRN BUCCAL DECREASED GLUCOSE; Start 08/10/18 at 10:30 Miscellaneous Medication (Bystolic) 5 mg DAILY PO ; Start 08/11/18 at 09:00 Insulin Glargine (Lantus) 23 units DAILY@2000 SC Last administered on 08/11/18at 01:01; Admin Dose 23 UNITS; Start 08/10/18 at 20:00 Albumin Human 100 ml @ 100 mls/hr WITH DIALYSIS PRN IV SBP less than 90 mm hg ; Start 08/10/18 at 12:30 Sodium Chloride (NS) -To prime the dialy... DIRECTED FOR HD PRN IV SBP less than 90 mm hg ; Start 08/10/18 at 12:30 Bumetanide (Bumex) 2 mg BID DIURETICS IV Last administered on 08/11/18at 17:45; Admin Dose 2 MG; Start 08/11/18 at 06:00 Collagenase (Santyl) 1 applic DAILY TOP ; Start 08/11/18 at 13:00 Collagenase (Santyl) 1 applic PRN PRN TOP SOILAGE; Start 08/11/18 at 13:00 Piperacillin Sod/ Tazobactam Sod 50 ml @ 100 mls/hr Q8 IVPB Last administered on 08/11/18at 17:45; Admin Dose 100 MLS/HR; Start 08/11/18 at 15:30 Mannitol 62.5 ml @ 750 mls/hr WITH DIALYSIS PRN IV BUN more than 100; Start 08/11/18 at 16:30 RUY WERNER MD Aug 11, 2018 21:03
--- NOTE | 2018-08-11 21:30 | NUR ---
nurses notes: spoke with Shaina and followed up with the HD STAT order , the HD nurse didn't show up yet. as per Shaina, " the HD nurse will be here as soon as she's done with other pt. Notify Shaina that patient should be dialyze as soon as possible due to high BUN and Crea. as per Shaina they only have one HD nurse tonight and she's is not done with the other patient yet. Doctor Tong Guadarrama made aware. Mentioned also to MD the low Hgb and Hct and the left Monty cath still oozing blood, and patient looks pale. applied pressure on the left femoral. patient monitored frequently. Addendum: 08/12/18 at 0130 by MAYE KIM RN addendum: Dr. Guadarrama has new order noted and carried out.
--- NOTE | 2018-08-11 21:30 | NUR ---
nurses notes: patient's Son Marcelo and Ashutosh expressed there concern that they don't want Micheal Sylvester ( patient's brother) to be part of the decision maker. Test Eng Clarissa made aware and spoke with the patient and patient expressed his wish to remove his brother's name in the facesheet. properly endorsed.
--- NOTE | 2018-08-11 21:45 | NUR ---
nurses notes: Melanie MORSE received a call from Malena (HD nurse that she will be here to dialyze pt. around 0100). spoke with Shaina from [facility] and informed about the pt's. condition and that he needs to be dialyze as soon as possible. According to Shaina they don't have any other HD nurse available for now. Dr. Guadarrama made aware of the situation.
[2018-08-11] MEDS ORDERED: DESMOPRESSIN 20 MCG in SOD CHLORIDE 0.9% 50 ML IVPB ONE (22:01)
--- NOTE | 2018-08-11 22:26 | NUR ---
nurses notes: pt. denies any pain/discomfort, denies headache , no sob. alert and oriented x 3. offered pen, paper for better communication but pt. refused. pt. able to mouth words.
[2018-08-12] VITALS (41 sets, daily range): BP systolic 77–121; BP diastolic 43–89; PULSE 66–102; RESP 11–25
--- NOTE | 2018-08-12 00:45 | NUR ---
nurses notes: HD nurse came and made aware of the Dr. Guadarrama order , Mannitol and Albumin medication was handed to HD nurse.
[2018-08-12] MEDS: ACCU-CHEK XX SCH (01:44)
[2018-08-12] MEDS: MANNITOL 20% 62.5 ML IV PRN ×4 (02:03→16:21)
[2018-08-12] MEDS: ALBUMIN HUMAN 25% 100 ML IV PRN (02:16)
--- NOTE | 2018-08-12 03:10 | NUR ---
nurses notes: [facility] made aware that pt. has HD order for today, with confirmation number [id number].
--- NOTE | 2018-08-12 04:30 | NUR ---
Hemodialysis with Mannitol and albumin given to patient for first time without any complications . Uf total removal 1400. Pt endorsed to his primary Rn Rafael MORSE's . Addendum: 08/12/18 at [address] Guadarrama informed pt recieved 3 hrs hemodialysis. requested next hemodialysis for patient today in the afternoon. Fartun's office Ethylbenzene Oxidizer aware.
[2018-08-12] MEDS ORDERED: HEPARIN 1000 UNITS/ML 10 ML INJ ONE (04:36)
[2018-08-12] MEDS: HEPARIN 1000 UNITS/ML 10 ML INJ CATHETER SCH ×2 (04:54→17:33)
[2018-08-12] MEDS: PIPER-TAZO 2.25 GM (PMX) 50 ML IVPB SCH ×3 (05:24→22:00)
[2018-08-12] MEDS: BUMETANIDE 1 MG INJ IV SCH ×2 (05:27→18:27)
--- NOTE | 2018-08-12 06:16 | NUR ---
EOSS VS STABLE THROUGHOUT SHIFT. AFEBRILE. MEDS GIVEN AND WOUND CARE/LINENS CHANGED. PT RECEIVED DIALYSIS AROUND 1AM AND ENDED AROUND 5AM; 1400 ML TAKEN OUT. BP WNL, SATTING >98%. TOLERATING TUBE FEEDS WELL. URINE OUTPUT 10ML/HR; MD ALREADY AWARE BECAUSE PT HAS KIDNEY FAILURE. WILL ENDORSE ALL INFORMATION TO DAY SHIFT RN.
--- NOTE | 2018-08-12 06:59 | NUR ---
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
--- NOTE | 2018-08-12 07:22 | NUR ---
nurses notes: left message to doctor's exchange regarding low Hgb and Hct , waiting for call back. properly endorsed to next RN.
[2018-08-12] MEDS: NEBIVOLOL 5 MG TAB PO SCH (08:29)
[2018-08-12] MEDS: CYANOCOBALAMIN 100 MCG TAB PO SCH (08:41)
[2018-08-12] MEDS: ALLOPURINOL 100 MG TAB PO SCH (08:41)
[2018-08-12] MEDS: FAMOTIDINE 20 MG INJ IV SCH (08:41)
[2018-08-12] MEDS: FOLIC ACID 1 MG TAB PO SCH (08:41)
[2018-08-12] MEDS: COLLAGENASE 5 GM (UD JAR) TOP SCH (08:41)
[2018-08-12] MEDS: CHOLECALCIFEROL 1,000 UNIT TAB PO SCH (08:44)
[2018-08-12] MEDS: HEPARIN 5,000 UNIT/1 ML VIAL SC SCH (09:00)
[2018-08-12] MEDS ORDERED: SOD CHLORIDE 0.9% 250 ML IV* ONE (09:10)
[2018-08-12] MEDS: AMIODARONE 200 MG TAB PO SCH (09:33)
--- NOTE | 2018-08-12 09:57 | PN ---
Date/Time of Note Date/Time of Note DATE: 08/12/18 TIME: 09:35 Assessment/Plan VTE Prophylaxis Risk score (from Ns)>0 risk: 9 SCD applied (from Ns): Yes Pharmacological prophylaxis: NA/contraindicated Pharm contraindication: bleeding Lines/Catheters IV Catheter Type (from [facility]): Left femoral Monty line for HD Central line still needed: Yes (For HD) Urinary Cath still in place: Yes Reason Cath still needed: other (indicate) (Acute renal failure) Assessment/Plan Assessment/Plan 63-year-old male with: 1. Volume overload, anasarca, pulmonary edema, in setting of known diastolic heart failure and advance kidney disease, patient currently in acute on chronic renal failure Appreciate nephrology recommendations, HD initiated, patient was dialyzed early this morning. He has a second session of dialysis planned within the next 24 hours. Status post Monty placement yesterday. 2. Acute kidney injury on chronic kidney disease, patient with uremia, metabolic acidosis, mild hyperkalemia, volume overload with anasarca and pulmonary edema. Status post Monty placement by vascular surgery, Dr Rogers, yesterday evening. Patient known to have advanced chronic kidney disease, also has hyperuricemia/gout, uric acid is up to 14.5 yesterday. Patient now on HD. Continue allopurinol. 3. Chronic respiratory failure secondary to becoming and syndrome, status post tracheostomy and gastrostomy tube placement, patient with an acute component on this admission secondary to volume overload and pulmonary edema. Currently on trach collar, also now on dialysis with volume removal. Patient much more comfortable. Speech evaluation pending for PMV to be replaced. Pulmonary following. 4. Diastolic heart failure, unclear ejection fraction, questionable valvular disease. 2D echocardiogram pending. HD for volume management. 5. Atrial fibrillation, chronic, rate controlled currently. Holding of Eliquis and all anticoagulation for now. Status post Monty placed yesterday. Patient did have some bleeding, he did get desmopressin in setting of uremia. Once hemoglobin stable and no signs of further bleeding. Patient to resume Eliquis renal dosing for stroke prophylaxis in setting of A. fib. On amiodarone and bisoprolol as tolerated. 7. Chronic anemia, apparently at discharge from his last hospitalization his hemoglobin was close to 7. Patient has microcytosis, he is on supplemental iron and folic acid along with B12 as an outpatient. He did receive 1 unit of packed red blood cells in the emergency department. TSH elevated with normal free T4, iron studies consistent with iron deficiency. Patient already on supplemental iron along with folic acid and B12. Will recheck TFTs in a week or 2 once patient on dialysis. Stool occult blood pending Transfuse 1 unit packed red blood cells today w/HD Follow-up with records from [facility] patient may have had a GI workup already done. If stool occult blood and negative, likely not to blood loss from GI source. 8. Diabetes mellitus, insulin requiring, A1c 5.8, continue current insulin regimen. 9. Gout/hyperuricemia, uric acid up to 14.5. On allopurinol now. Renal ultrasound negative for any obstructive disease. 10. Hypertension: Actually found to be slightly hypotensive, may need to hold bisoprolol. 11. Morbid obesity with obstructive sleep apnea and pickwickian syndrome requiring tracheostomy for chronic respiratory failure. Trach collar currently. Speech eval and PMV post speech eval Prophylaxis: Heparin for DVT prophylaxis, Pepcid for GI prophylaxis Disposition: Status post Monty placement yesterday evening for HD. Patient had one session so far tolerated. Appreciate assistance from vascular surgery, pulmonary and nephrology. Result Diagram: 08/12/18 0530 08/12/18 0530 Results 24hrs Laboratory Tests Test 08/11/18 09:40 08/11/18 09:43 08/11/18 12:22 08/11/18 18:59 Prothrombin Time 19.3 H Prothrombin Time 1.5 Ratio INR International 1.62 Normalized Ratio Activated 34.8 Partial Thromboplast Time Bedside Glucose 132 132 114 Test 08/11/18 20:56 08/12/18 01:42 08/12/18 05:30 Bedside Glucose 118 109 White Blood Count 6.6 # Red Blood Count 2.34 L Hemoglobin 7.0 L Hematocrit 23.7 L Mean Corpuscular 101.3 H Volume Mean Corpuscular 29.9 Hemoglobin Mean Corpuscular 29.5 L Hemoglobin Concent Red Cell 20.7 H Distribution Width Platelet Count 152 Mean Platelet Volume 11.9 H Immature 0.600 H Granulocytes % Neutrophils % 82.6 H Lymphocytes % 7.3 L Monocytes % 4.6 Eosinophils % 4.7 Basophils % 0.2 Nucleated Red Blood 0.0 Cells % Immature 0.040 H Granulocytes # Neutrophils # 5.4 Lymphocytes # 0.5 L Monocytes # 0.3 Eosinophils # 0.3 Basophils # 0.0 Nucleated Red Blood 0.0 Cells # Prothrombin Time 17.5 H Prothrombin Time 1.4 Ratio INR International 1.42 Normalized Ratio Sodium Level 135 Potassium Level 4.5 Chloride Level 87 L Carbon Dioxide Level 33 H Anion Gap 15 H Blood Urea Nitrogen 160 H Creatinine 5.57 #H Est Glomerular 10 L Filtrat Rate mL/min Glucose Level 95 Calcium Level 8.3 L Phosphorus Level 7.7 H Magnesium Level 2.9 H Subjective 24 Hr Interval Summary Free Text/Dictation Patient awake alert, status post HD this morning. Status post Monty catheter placement yesterday. Tolerated first dialysis fairly well. Hemodynamically stable. Exam/Review of Systems Vital Signs Vitals Vital Signs Date Temp Pulse Resp B/P (MAP) Pulse Ox O2 O2 Flow FiO2 Time Delivery Rate 08/12/18 93 22 119/79 92 08:15 (92) 08/12/18 98.6 Trach 08:00 Collar 08/12/18 5.0 04:37 08/12/18 28 04:03 Intake and Output 08/11/18 08/11/18 08/12/18 1515:00 23:00 07:00 IntakeIntake Total 0 ml 305 ml 615.0 ml OutputOutput Total 100 ml 65 ml 580 ml BalanceBalance -100 ml 240 ml 35.0 ml Exam Constitutional: alert, oriented, well developed, obese (Morbidly obese) Respiratory: diminished breath sounds (Bilaterally.), other (on TC ) Cardiovascular: irregular rhythm (Chronic atrial fibrillation) Gastrointestinal: soft, non-tender, other (G-tube in place, tube feeding) Genitourinary - Male: other (Right femoral Monty) Musculoskeletal: nl extremities to inspection, swelling (Anasarca) Extremities: normal pulses, edema (Anasarca) 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, nl mental status, nl speech (At baseline but currently with tracheostomy trach collar.), other (Bedridden mostly) Medications Medications Current Medications IV Flush (NS 3 ml) 3 ml PER PROTOCOL IV ; Start 08/10/18 at 09:30 Lorazepam (Ativan) 0.5 mg Q6H PRN IV ANXIETY Last administered on 08/11/18at 11:18; Admin Dose 0.5 MG; Start 08/10/18 at 09:30 Ondansetron HCl (Zofran Inj) 4 mg Q6H PRN IV NAUSEA AND/OR VOMITING; Start 08/10/18 at 09:30 Acetaminophen (Tylenol Tab) 650 mg Q6H PRN PO PAIN LEVEL 1-3 OR FEVER; Start 08/10/18 at 09:30 Morphine Sulfate (morphine SULFATE (PF)) 2 mg Q4H PRN IV PAIN LEVEL 7-10 Last administered on 08/10/18 17:26; Admin Dose 2 MG; Start 08/10/18 at 09:30 Bisacodyl (Dulcolax Supp) 10 mg DAILY PRN [place] CONSTIPATION; Start 08/10/18 at 09:30 Famotidine (Pepcid Iv) 20 mg DAILY IV Last administered on 08/12/18 08:41; Admin Dose 20 MG; Start 08/10/18 at 09:30 Heparin Sodium (Porcine) (Heparin (5000 Units/1ml)) 5,000 unit Q12 SC ; Start 08/10/18 at 21:00; Status Hold Amiodarone HCl (Cordarone) 200 mg DAILY PO Last administered on 08/12/18 09:33; Admin Dose 200 MG; Start 08/11/18 at 09:00 Cholecalciferol (Vitamin D) 1,000 unit DAILY PO Last administered on 08/12/18 08:44; Admin Dose 1,000 UNIT; Start 08/11/18 at 09:00 Cyanocobalamin (Vitamin B12) 100 mcg DAILY PO Last administered on 08/12/18 08:41; Admin Dose 100 MCG; Start 08/11/18 at 09:00 Folic Acid (Folic Acid) 1 mg DAILY PO Last administered on 08/12/18 08:41; Admin Dose 1 MG; Start 08/11/18 at 09:00 Allopurinol (Zyloprim) 100 mg DAILY PO Last administered on 08/12/18 08:41; Admin Dose 100 MG; Start 08/11/18 at 09:00 Diagnostic Test (Pha) (Accu-Chek) 1 ea 02 XX Last administered on 08/11/18at 02:00; Admin Dose 1 EA; Start 08/11/18 at 02:00 Miscellaneous Information 1 ea NOTE XX ; Start 08/10/18 at 10:30 Glucose (Glutose) 15 gm Q15M PRN PO DECREASED GLUCOSE; Start 08/10/18 at 10:30 Glucose (Glutose) 22.5 gm Q15M PRN PO DECREASED GLUCOSE; Start 08/10/18 at 10:30 Dextrose (D50w Syringe) 25 ml Q15M PRN IV DECREASED GLUCOSE; Start 08/10/18 at 10:30 Dextrose (D50w Syringe) 50 ml Q15M PRN IV DECREASED GLUCOSE; Start 08/10/18 at 10:30 Glucagon (Glucagen) 1 mg Q15M PRN IM DECREASED GLUCOSE; Start 08/10/18 at 10:30 Glucose (Glutose) 15 gm Q15M PRN BUCCAL DECREASED GLUCOSE; Start 08/10/18 at 10:30 Miscellaneous Medication (Bystolic) 5 mg DAILY PO ; Start 08/11/18 at 09:00 Insulin Glargine (Lantus) 23 units DAILY@2000 SC Last administered on 08/11/18at 21:06; Admin Dose 23 UNITS; Start 08/10/18 at 20:00 Albumin Human 100 ml @ 100 mls/hr WITH DIALYSIS PRN IV SBP less than 90 mm hg Last administered on 08/12/18at 02:16; Admin Dose 100 MLS/HR; Start 08/10/18 at 12:30 Sodium Chloride (NS) -To prime the dialy... DIRECTED FOR HD PRN IV SBP less than 90 mm hg ; Start 08/10/18 at 12:30 Heparin Sodium (Porcine) (Heparin (1000 Units/ml)) 4,000 unit AFTER DIALYSIS CATHETER Last administered on 08/12/18at 04:54; Admin Dose 4,000 UNIT; Start 08/10/18 at 12:30 Bumetanide (Bumex) 2 mg BID DIURETICS IV Last administered on 08/12/18at 05:27; Admin Dose 2 MG; Start 08/11/18 at 06:00 Collagenase (Santyl) 1 applic DAILY TOP Last administered on 08/12/18at 08:41; Admin Dose 1 APPLIC; Start 08/11/18 at 13:00 Collagenase (Santyl) 1 applic PRN PRN TOP SOILAGE; Start 08/11/18 at 13:00 Piperacillin Sod/ Tazobactam Sod 50 ml @ 100 mls/hr Q8 IVPB Last administered on 08/12/18at 05:24; Admin Dose 100 MLS/HR; Start 08/11/18 at 15:30 Mannitol 62.5 ml @ 750 mls/hr WITH DIALYSIS PRN IV BUN more than 100 Last administered on 08/12/18at 03:04; Admin Dose 750 MLS/HR; Start 08/11/18 at 16:30 Insulin Aspart (Novolog Insulin Pen) (Adult SC Insulin - Mild Algorithm)... Q6 SC ; Start 08/12/18 at 12:00 Imaging Imaging PROCEDURE: XR Chest. CLINICAL INDICATION: Respiratory failure TECHNIQUE: An AP view of the chest was obtained. COMPARISON: CHEST 08/10/2018; CHEST 08/01/2018; DR VIGIL CHEST 01/03/2018 FINDINGS: A tracheostomy tube is in place. There is prominence of the interstitial and central pulmonary vascular markings with small right pleural effusion. No pneumothorax is seen. The cardiomediastinal silhouette is mildly enlarged. The osseous structures are unremarkable. IMPRESSION: 1. Findings suggestive of pulmonary vascular congestion with small right pleural effusion. No significant interval change. 2. Mild cardiomegaly. 3. Tubes and lines, as described above. RPTAT: HH .Brenda Martino MD, MD Date Time Electronically viewed and signed by .Brenda Martino MD, MD on 08/12/2018 08:32 EJ GRADY Aug 12, 2018 09:46
--- NOTE | 2018-08-12 10:34 | CONS ---
Date/Time of Note Date/Time of Note DATE: 08/12/18 TIME: 10:34 Assessment/Plan Assessment/Plan Assessment/Plan 1. acute Fluid overload with worsening renal failure, Oliguric to anuric- progressed to ESRD 2. Acute Uremia with BUN 223 on admission 3. SHAILA on CKD IV due to ATN 4. acute on chronic hypoxemix respiratory failure currenlty back on Vent, S/p tracheostomy 5. Anemia of ESRD 6. Hyperuricemia 7. Morbid to severe obesity 8. Pickwickian syndrome Plan: HD initiated on 08/11/17 with Temporary norma Catheter placement done by - he tolerated his first HD today AM, Hd done for 3 hr( instead of 2 hr) asper HD nurse will plan for another 3 hr Hd today and 3 hr HD tomorrow Allopurinol 100mg po daily Conitnue Bumex 2 mg IV BID appreciate help from Dr. Pineda- Due to pt body habitus it was very difficult vascular access Result Diagram: 08/12/18 0530 08/12/18 0530 Results 24hrs Laboratory Tests Test 08/11/18 12:22 08/11/18 18:59 08/11/18 20:56 08/12/18 01:42 Bedside Glucose 132 114 118 109 Test 08/12/18 05:30 White Blood Count 6.6 # Red Blood Count 2.34 L Hemoglobin 7.0 L Hematocrit 23.7 L Mean Corpuscular 101.3 H Volume Mean Corpuscular 29.9 Hemoglobin Mean Corpuscular 29.5 L Hemoglobin Concent Red Cell 20.7 H Distribution Width Platelet Count 152 Mean Platelet Volume 11.9 H Immature 0.600 H Granulocytes % Neutrophils % 82.6 H Lymphocytes % 7.3 L Monocytes % 4.6 Eosinophils % 4.7 Basophils % 0.2 Nucleated Red Blood 0.0 Cells % Immature 0.040 H Granulocytes # Neutrophils # 5.4 Lymphocytes # 0.5 L Monocytes # 0.3 Eosinophils # 0.3 Basophils # 0.0 Nucleated Red Blood 0.0 Cells # Prothrombin Time 17.5 H Prothrombin Time 1.4 Ratio INR International 1.42 Normalized Ratio Sodium Level 135 Potassium Level 4.5 Chloride Level 87 L Carbon Dioxide Level 33 H Anion Gap 15 H Blood Urea Nitrogen 160 H Creatinine 5.57 #H Est Glomerular 10 L Filtrat Rate mL/min Glucose Level 95 Calcium Level 8.3 L Phosphorus Level 7.7 H Magnesium Level 2.9 H Consultation Date/Type/Reason Admit Date/Time Aug 10, 2018 at 05:03 Initial Consult Date 08/10/18 Type of Consult NEPHROLOGY Requesting Provider: EJ GRADY 24 HR Interval Summary Free Text/Dictation pt finished his monday HD today at 6.30 am( it was started at 3.30 am) pt agreed for another Hd today, c/o cough, no fever, no chills Exam/Review of Systems Vital Signs Vitals Vital Signs Date Temp Pulse Resp B/P (MAP) Pulse Ox O2 O2 Flow FiO2 Time Delivery Rate 08/12/18 93 22 119/79 92 08:15 (92) 08/12/18 98.6 Trach 08:00 Collar 08/12/18 5.0 04:37 08/12/18 28 04:03 Intake and Output 08/11/18 08/11/18 08/12/18 1515:00 23:00 07:00 IntakeIntake Total 0 ml 305 ml 615.0 ml OutputOutput Total 100 ml 65 ml 580 ml BalanceBalance -100 ml 240 ml 35.0 ml Exam Constitutional: alert, awake, morbidly obese, ENMT: other (Status post tracheostomy) Respiratory: diminished breath sounds (Bilaterally, patient with congestion.) Cardiovascular: irregular rhythm (Controlled atrial fibrillation) Gastrointestinal: soft, non-tender Genitourinary - Male: other (Only catheter in place with minimal urine output) Musculoskeletal: Diffuse anasarca Extremities: normal pulses, other (Anasarca) 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, nl mental status, other (Bedbound but moving all 4 extremities, currently with tracheostomy) Medications Medications Current Medications IV Flush (NS 3 ml) 3 ml PER PROTOCOL IV ; Start 08/10/18 at 09:30 Lorazepam (Ativan) 0.5 mg Q6H PRN IV ANXIETY Last administered on 08/11/18at 11:18; Admin Dose 0.5 MG; Start 08/10/18 at 09:30 Ondansetron HCl (Zofran Inj) 4 mg Q6H PRN IV NAUSEA AND/OR VOMITING; Start 08/10/18 at 09:30 Acetaminophen (Tylenol Tab) 650 mg Q6H PRN PO PAIN LEVEL 1-3 OR FEVER; Start 08/10/18 at 09:30 Morphine Sulfate (morphine SULFATE (PF)) 2 mg Q4H PRN IV PAIN LEVEL 7-10 Last administered on 08/10/18at 17:26; Admin Dose 2 MG; Start 08/10/18 at 09:30 Bisacodyl (Dulcolax Supp) 10 mg DAILY PRN [place] CONSTIPATION; Start 08/10/18 at 09:30 Famotidine (Pepcid Iv) 20 mg DAILY IV Last administered on 08/12/18 08:41; Admin Dose 20 MG; Start 08/10/18 at 09:30 Heparin Sodium (Porcine) (Heparin (5000 Units/1ml)) 5,000 unit Q12 SC ; Start 08/10/18 at 21:00; Status Hold Amiodarone HCl (Cordarone) 200 mg DAILY PO Last administered on 08/12/18 09:33; Admin Dose 200 MG; Start 08/11/18 at 09:00 Cholecalciferol (Vitamin D) 1,000 unit DAILY PO Last administered on 08/12/18 08:44; Admin Dose 1,000 UNIT; Start 08/11/18 at 09:00 Cyanocobalamin (Vitamin B12) 100 mcg DAILY PO Last administered on 08/12/18 08:41; Admin Dose 100 MCG; Start 08/11/18 at 09:00 Folic Acid (Folic Acid) 1 mg DAILY PO Last administered on 08/12/18 08:41; Adm in Dose 1 MG; Start 08/11/18 at 09:00 Allopurinol (Zyloprim) 100 mg DAILY PO Last administered on 08/12/18 08:41; Admin Dose 100 MG; Start 08/11/18 at 09:00 Diagnostic Test (Pha) (Accu-Chek) 1 ea 02 XX Last administered on 08/11/18at 02:00; Admin Dose 1 EA; Start 08/11/18 at 02:00 Miscellaneous Information 1 ea NOTE XX ; Start 08/10/18 at 10:30 Glucose (Glutose) 15 gm Q15M PRN PO DECREASED GLUCOSE; Start 08/10/18 at 10:30 Glucose (Glutose) 22.5 gm Q15M PRN PO DECREASED GLUCOSE; Start 08/10/18 at 10:30 Dextrose (D50w Syringe) 25 ml Q15M PRN IV DECREASED GLUCOSE; Start 08/10/18 at 10:30 Dextrose (D50w Syringe) 50 ml Q15M PRN IV DECREASED GLUCOSE; Start 08/10/18 at 10:30 Glucagon (Glucagen) 1 mg Q15M PRN IM DECREASED GLUCOSE; Start 08/10/18 at 10:30 Glucose (Glutose) 15 gm Q15M PRN BUCCAL DECREASED GLUCOSE; Start 08/10/18 at 10:30 Miscellaneous Medication (Bystolic) 5 mg DAILY PO ; Start 08/11/18 at 09:00 Insulin Glargine (Lantus) 23 units DAILY@2000 SC Last administered on 08/11/18at 21:06; Admin Dose 23 UNITS; Start 08/10/18 at 20:00 Albumin Human 100 ml @ 100 mls/hr WITH DIALYSIS PRN IV SBP less than 90 mm hg Last administered on 08/12/18at 02:16; Admin Dose 100 MLS/HR; Start 08/10/18 at 12:30 Sodium Chloride (NS) -To prime the dialy... DIRECTED FOR HD PRN IV SBP less than 90 mm hg ; Start 08/10/18 at 12:30 Heparin Sodium (Porcine) (Heparin (1000 Units/ml)) 4,000 unit AFTER DIALYSIS CATHETER Last administered on 08/12/18at 04:54; Admin Dose 4,000 UNIT; Start at 12:30 Bumetanide (Bumex) 2 mg BID DIURETICS IV Last administered on 08/12/18at 05:27; Admin Dose 2 MG; Start 08/11/18 at 06:00 Collagenase (Santyl) 1 applic DAILY TOP Last administered on 08/12/18at 08:41; Admin Dose 1 APPLIC; Start 08/11/18 at 13:00 Collagenase (Santyl) 1 applic PRN PRN TOP SOILAGE; Start 08/11/18 at 13:00 Piperacillin Sod/ Tazobactam Sod 50 ml @ 100 mls/hr Q8 IVPB Last administered on 08/12/18at 05:24; Admin Dose 100 MLS/HR; Start 08/11/18 at 15:30 Mannitol 62.5 ml @ 750 mls/hr WITH DIALYSIS PRN IV BUN more than 100 Last administered on 08/12/18at 03:04; Admin Dose 750 MLS/HR; Start 08/11/18 at 16:30 Insulin Aspart (Novolog Insulin Pen) (Adult SC Insulin - Mild Algorithm)... Q6 SC ; Start 08/12/18 at 12:00 RUY WERNER MD Aug 12, 2018 10:34
--- NOTE | 2018-08-12 10:51 | NUR ---
Called [facility] and notified that there is an order for Dialysis for 08/12 and 08/13. Confirmation for today 08/12 [id number] for tomorrow [id number]. Spoke with [facility].
--- NOTE | 2018-08-12 11:26 | CONS ---
Date/Time of Note Date/Time of Note DATE: 08/12/18 TIME: 11:21 Consult Date/Type/Reason Admit Date/Time Aug 10, 2018 at 05:03 Initial Consult Date 08/10/18 Type of Consultation: Pulm/CCM Requesting Provider: EJ GRADY Subjective s/p HD with UF earlier this am. Now using PMV to phonate. Objective Vital Signs Date Temp Pulse Resp B/P (MAP) Pulse Ox O2 O2 Flow FiO2 Time Delivery Rate 08/12/18 90 11 98/67 (77) 98 Trach 10:30 Collar 08/12/18 5.0 08:00 08/12/18 98.6 08:00 08/12/18 28 04:03 Intake and Output 08/11/18 08/11/18 08/12/18 1515:00 23:00 07:00 IntakeIntake Total 0 ml 305 ml 615.0 ml OutputOutput Total 100 ml 65 ml 580 ml BalanceBalance -100 ml 240 ml 35.0 ml Exam HEENT: Neck supple; no JVD; no LAD; trach site clear CVS: Irreg irreg, S1 and S2 CHEST: Distant breath sounds ABD: Obese, soft, NT, + BS EXT: No c/c: + edema Results/Medications Result Diagram: 08/12/18 0530 08/12/18 0530 Results 24 hrs Laboratory Tests Test 08/11/18 12:22 08/11/18 18:59 08/11/18 20:56 08/12/18 01:42 Bedside Glucose 132 114 118 109 Test 08/12/18 05:00 08/12/18 05:30 Blood Gas Blood arterial Specimen Source Arterial Blood 08/12/2018 10:35: Date Drawn 32 AM Arterial Blood pH 7.403 (Temp corrected) Arterial Blood 53.6 H pCO2 (Temp correct) Arterial Blood 81.1 pO2 (Temp corrected) Arterial Blood 32.7 H HCO3 Arterial Blood 7.1 H Base Excess Arterial Blood 95.3 Oxygen Saturation Lalo Test ACCEPTAB Arterial Blood Right Radial Gas Puncture Site Arterial 0.9 Blood Carboxyhemo globin Arterial Blood 0.3 Methemoglobin Blood Gas A-a O2 55.3 H Differential Oxyhemoglobin 94.2 Percent Blood Gas 37.0 Temperature Blood Gas TRACH COLLAR Modality FiO2 28.0 Blood Gas Terrell [facility] Notified Whom Blood Gas 08/12/2018 11:03: Notified Time 23 AM White Blood Count 6.6 # Red Blood Count 2.34 L Hemoglobin 7.0 L Hematocrit 23.7 L Mean Corpuscular 101.3 H Volume Mean Corpuscular 29.9 Hemoglobin Mean Corpuscular 29.5 L Hemoglobin Concen t Red Cell 20.7 H Distribution Width Platelet Count 152 Mean Platelet 11.9 H Volume Immature 0.600 H Granulocytes % Neutrophils % 82.6 H Lymphocytes % 7.3 L Monocytes % 4.6 Eosinophils % 4.7 Basophils % 0.2 Nucleated Red 0.0 Blood Cells % Immature 0.040 H Granulocytes # Neutrophils # 5.4 Lymphocytes # 0.5 L Monocytes # 0.3 Eosinophils # 0.3 Basophils # 0.0 Nucleated Red 0.0 Blood Cells # Prothrombin Time 17.5 H Prothrombin Time 1.4 Ratio INR International 1.42 Normalized Ratio Sodium Level 135 Potassium Level 4.5 Chloride Level 87 L Carbon Dioxide 33 H Level Anion Gap 15 H Blood Urea 160 H Nitrogen Creatinine 5.57 #H Est Glomerular 10 L Filtrat Rate mL/min Glucose Level 95 Calcium Level 8.3 L Phosphorus Level 7.7 H Magnesium Level 2.9 H Medications Current Medications IV Flush (NS 3 ml) 3 ml PER PROTOCOL IV ; Start 08/10/18 at 09:30 Lorazepam (Ativan) 0.5 mg Q6H PRN IV ANXIETY Last administered on 08/11/18at 11:18; Admin Dose 0.5 MG; Start 08/10/18 at 09:30 Ondansetron HCl (Zofran Inj) 4 mg Q6H PRN IV NAUSEA AND/OR VOMITING; Start 08/10/18 at 09:30 Acetaminophen (Tylenol Tab) 650 mg Q6H PRN PO PAIN LEVEL 1-3 OR FEVER; Start 08/10/18 at 09:30 Morphine Sulfate (morphine SULFATE (PF)) 2 mg Q4H PRN IV PAIN LEVEL 7-10 Last administered on 08/10/18at 17:26; Admin Dose 2 MG; Start 08/10/18 at 09:30 Bisacodyl (Dulcolax Supp) 10 mg DAILY PRN [place] CONSTIPATION; Start 08/10/18 at 09:30 Famotidine (Pepcid Iv) 20 mg DAILY IV Last administered on 08/12/18at 08:41; Admin Dose 20 MG; Start 08/10/18 at 09:30 Heparin Sodium (Porcine) (Heparin (5000 Units/1ml)) 5,000 unit Q12 SC ; Start 08/10/18 at 21:00; Status Hold Amiodarone HCl (Cordarone) 200 mg DAILY PO Last administered on 08/12/18 09:33; Admin Dose 200 MG; Start 08/11/18 at 09:00 Cholecalciferol (Vitamin D) 1,000 unit DAILY PO Last administered on 08/12/18 08:44; Admin Dose 1,000 UNIT; Start 08/11/18 at 09:00 Cyanocobalamin (Vitamin B12) 100 mcg DAILY PO Last administered on 08/12/18 08:41; Admin Dose 100 MCG; Start 08/11/18 at 09:00 Folic Acid (Folic Acid) 1 mg DAILY PO Last administered on 08/12/18 08:41; Admin Dose 1 MG; Start 08/11/18 at 09:00 Allopurinol (Zyloprim) 100 mg DAILY PO Last administered on 08/12/18 08:41; Admin Dose 100 MG; Start 08/11/18 at 09:00 Diagnostic Test (Pha) (Accu-Chek) 1 ea 02 XX Last administered on 08/11/18at 02:00; Admin Dose 1 EA; Start 08/11/18 at 02:00 Miscellaneous Information 1 ea NOTE XX ; Start 08/10/18 at 10:30 Glucose (Glutose) 15 gm Q15M PRN PO DECREASED GLUCOSE; Start 08/10/18 at 10:30 Glucose (Glutose) 22.5 gm Q15M PRN PO DECREASED GLUCOSE; Start 08/10/18 at 10:30 Dextrose (D50w Syringe) 25 ml Q15M PRN IV DECREASED GLUCOSE; Start 08/10/18 at 10:30 Dextrose (D50w Syringe) 50 ml Q15M PRN IV DECREASED GLUCOSE; Start 08/10/18 at 10:30 Glucagon (Glucagen) 1 mg Q15M PRN IM DECREASED GLUCOSE; Start 08/10/18 at 10:30 Glucose (Glutose) 15 gm Q15M PRN BUCCAL DECREASED GLUCOSE; Start 08/10/18 at 10:30 Miscellaneous Medication (Bystolic) 5 mg DAILY PO ; Start 08/11/18 at 09:00 Insulin Glargine (Lantus) 23 units DAILY@2000 SC Last administered on 08/11/18at 21:06; Admin Dose 23 UNITS; Start 08/10/18 at 20:00 Albumin Human 100 ml @ 100 mls/hr WITH DIALYSIS PRN IV SBP less than 90 mm hg Last administered on 08/12/18at 02:16; Admin Dose 100 MLS/HR; Start 08/10/18 at 12:30 Sodium Chloride (NS) -To prime the dialy... DIRECTED FOR HD PRN IV SBP less than 90 mm hg ; Start 08/10/18 at 12:30 Heparin Sodium (Porcine) (Heparin (1000 Units/ml)) 4,000 unit AFTER DIALYSIS CATHETER Last administered on 08/12/18at 04:54; Admin Dose 4,000 UNIT; Start 08/10/18 at 12:30 Bumetanide (Bumex) 2 mg BID DIURETICS IV Last administered on 08/12/18at 05:27; Admin Dose 2 MG; Start 08/11/18 at 06:00 Collagenase (Santyl) 1 applic DAILY TOP Last administered on 08/12/18at 08:41; Admin Dose 1 APPLIC; Start 08/11/18 at 13:00 Collagenase (Santyl) 1 applic PRN PRN TOP SOILAGE; Start 08/11/18 at 13:00 Piperacillin Sod/ Tazobactam Sod 50 ml @ 100 mls/hr Q8 IVPB Last administered on 08/12/18at 05:24; Admin Dose 100 MLS/HR; Start 08/11/18 at 15:30 Mannitol 62.5 ml @ 750 mls/hr WITH DIALYSIS PRN IV BUN more than 100 Last administered on 08/12/18at 03:04; Admin Dose 750 MLS/HR; Start 08/11/18 at 16:30 Insulin Aspart (Novolog Insulin Pen) (Adult SC Insulin - Mild Algorithm)... Q6 SC ; Start 08/12/18 at 12:00 Assessment/Plan Additional Assessment/Plan IMP: 1. Acute on chronic renal failure with volume overload 2. ADHF/Volume overload 3. Acute on chronic Hypercapnic Resp Failure--s/p trach 4. Chronic atrial fibrillation 5. OHS 6. Anemia RECS: 1. Continue PMV as tolerated 2. ST eval later today 3. Cont. HD/UF 4. Am labs/CXR/ABG 5. Transfuse PRBC with next HD 35 min cc time PADMINI SELF MD Aug 12, 2018 11:26
[2018-08-12] MEDS: Insulin NOVOLOG SS MILD Algorithm (NPO/TPN/ENTERAL FEEDS) SC SCH ×2 (11:52→18:43)
[2018-08-12] MEDS ORDERED: INSULIN ASPART [NOVOLOG] 3 ML PEN SC SCH (12:00)
[2018-08-12] MEDS: morphine 4 MG/ML VIAL IV PRN (15:08)
--- NOTE | 2018-08-12 18:44 | NUR ---
EOSS Patient is alert, oriented x4. Denies pain. On trach collar saturating >95%. No SOB or desaturation noted. Repositioned Q2H. Wound dressing done. Patient requesting for water but waiting for speech eval. Also, wants to use PMV valve. Per Dr. Guadarrama, Its okay to use PMV valve for short period under supervision even pending ST evel. So, PMV was used under supervision and infront of Dr. Guadarrama, He did tolreated well for few minutes and put back on T piece. Dialysis was done today for 3 hrs. Removed 1500cc output. One unit of PRBC was given by Dialysis nurse. Procedure well tolerated. Trach care, GT site care done.
[2018-08-12] MEDS: INSULIN GLARGINE [LANTus] (100 UNITS/ML) SYG SC SCH (20:04)
--- NOTE | 2018-08-12 20:50 | NUR ---
nurses notes: pt. appears agitated and tried to pull out tubes , talk to pt. in a calm manner. pt. still tried to pull out things. pt. with an order for Ativan PRN but pt. refused the ativan to be administered. Ativan wasted and witnessed by charge nurse.
--- NOTE | 2018-08-12 20:55 | NUR ---
PT WILL BE TRANSFERRING TO TELEMETRY 631 WITH LITO ABREU. GAVE REPORT AT [id number].
--- NOTE | 2018-08-12 21:15 | NUR ---
nurses notes: pt. with order to transfer to Telemetry , report given to receiving nurse. transported pt. with 2 RN. pt. appears asleep , no SOB, VS within range, satting 97% on O2 at 5lpm 28% via trach collar. at room 631 in telemetry , try to wake up pt. but unable to arouse, vs still within range. HR-94, RR-24, BP-101/73, saturating 94%. after 10 minutes pt. able to arouse , placed PMV and ask patient's questions , pt. appears confused. non compliant. spoke with Dr. Wilks via telephone and was made aware of the pt's condition, with order to keep pt. in ICU for now.
--- NOTE | 2018-08-12 23:33 | NUR ---
nurses notes: pt. refused care , refused tube feeding , refused medications. talked to pt. in a calm manner, risk and benefits explained, offered x 3 , patient still refused. patients rights observed. family at bedside is aware and try to talk to pt.
[2018-08-13] VITALS (36 sets, daily range): BP systolic 52–128; BP diastolic 31–113; PULSE 80–97; RESP 17–27
--- NOTE | 2018-08-13 01:49 | NUR ---
WHEN ASKING PT IF WE COULD ADMINISTER HIS INSULIN AND ZOSYN AND TUBE FEEDS, PT REFUSED. PT WAS EDUCATED MULTIPLE TIMES ON RISKS OF NOT GETTING MEDICATIONS BUT STILL REFUSED.
[2018-08-13] MEDS: ACCU-CHEK XX SCH (02:00)
[2018-08-13] MEDS: PIPER-TAZO 2.25 GM (PMX) 50 ML IVPB SCH ×3 (05:18→21:10)
[2018-08-13] MEDS: BUMETANIDE 1 MG INJ IV SCH ×2 (05:18→17:05)
[2018-08-13] MEDS: Insulin NOVOLOG SS MILD Algorithm (NPO/TPN/ENTERAL FEEDS) SC SCH ×4 (05:47→18:30)
--- NOTE | 2018-08-13 06:00 | NUR ---
pt refused wound pictures at trach site; pt educated on importance of documentation but still refused.
--- NOTE | 2018-08-13 06:13 | NUR ---
EOSS MULTIPLE EVENTS OCCURRED THROUGHOUT THE NIGHT. TRANSFERRED PT TO TELEMETRY BUT UPON ARRIVAL, PT WASN'T RESPONDING TO VERBAL OR PHYSICAL STIMULI. AFTER A FEW MINUTES, PT AWOKE AND WAS CONFUSED AND REFUSING ANY AND ALL TREATMENT. UPDATED DR. GRADY WHO ORDERED FOR US TO KEEP PT IN ICU FOR NOW. ONCE PT BROUGHT BACK DOWN, PT STILL REFUSING MEDS, TUBE FEEDS. FAMILY UPDATED ON EVENTS THROUGHOUT THE NIGHT; SON CHRIS AND HIS CAME AND SAW PT AND HELPED CALM PT DOWN. THEY CLAIMED THEY WILL BE BACK IN AM. WILL ENDORSE ALL INFORMATION TO DAY SHIFT NURSE.
--- NOTE | 2018-08-13 06:23 | NUR ---
nurses notes: placed a call to [facility] and inform that pt. had an order for HD today , according to [facility] HD was schedule for him this morning but no exact time yet. will properly endorsed.
[2018-08-13] MEDS: NEBIVOLOL 5 MG TAB PO SCH (09:00)
[2018-08-13] MEDS: ALLOPURINOL 100 MG TAB PO SCH (09:15)
[2018-08-13] MEDS: CYANOCOBALAMIN 100 MCG TAB PO SCH (09:15)
[2018-08-13] MEDS: AMIODARONE 200 MG TAB PO SCH (09:15)
[2018-08-13] MEDS: CHOLECALCIFEROL 1,000 UNIT TAB PO SCH (09:15)
[2018-08-13] MEDS: COLLAGENASE 5 GM (UD JAR) TOP SCH (09:16)
[2018-08-13] MEDS: FOLIC ACID 1 MG TAB PO SCH (09:22)
[2018-08-13] MEDS: FAMOTIDINE 20 MG INJ IV SCH (09:22)
--- NOTE | 2018-08-13 11:53 | CONS ---
Date/Time of Note Date/Time of Note DATE: 08/13/18 TIME: 11:52 Consult Date/Type/Reason Admit Date/Time Aug 10, 2018 at 05:03 Initial Consult Date 08/10/18 Type of Consultation: Pulm/CCM Requesting Provider: EJ GRADY Subjective Patient comfortable this morning. Awake alert oriented on tracheostomy cool aerosol. Objective Vital Signs Date Temp Pulse Resp B/P (MAP) Pulse Ox O2 O2 Flow FiO2 Time Delivery Rate 08/13/18 86 20 97/78 (84) 99 Trach 10:00 Collar 08/13/18 97.5 08:00 08/13/18 5.0 08:00 08/13/18 28 05:10 Intake and Output 08/12/18 08/12/18 08/13/18 1515:00 23:00 07:00 IntakeIntake Total 380 ml 465.0 ml 120 ml OutputOutput Total 20 ml 50 ml 6 ml BalanceBalance 360 ml 415.0 ml 114 ml Exam GENERAL: Morbidly obese gentleman with tracheostomy VITAL SIGNS: per chart NECK: Supple. No JVD or lymphadenopathy. CARDIAC EXAM: S1, S2. No added sounds or murmurs. CHEST: clear bilaterally, No added sounds, rales or wheezes ABDOMEN: Soft, nontender. No guarding or rebound. EXTREMITIES: No cyanosis, clubbing or edema. NEUROLOGIC: Generalized weakness. No focal deficits. Results/Medications Result Diagram: 08/13/18 0444 08/13/18 0444 Results 24 hrs Laboratory Tests Test 08/12/18 18:38 08/12/18 19:58 08/12/18 21:30 08/13/18 00:27 Bedside Glucose 146 165 176 146 Test 08/13/18 01:00 08/13/18 04:44 08/13/18 04:45 08/13/18 05:00 Stool Occult NEGATIVE Blood White Blood 9.8 # Count Red Blood Count 2.50 L Hemoglobin 7.5 L Hematocrit 25.0 L Mean Corpuscular 100.0 Volume Mean Corpuscular 30.0 Hemoglobin Mean Corpuscular 30.0 L Hemoglobin Maryann nt Red Cell 20.9 H Distribution Width Platelet Count 166 Mean Platelet 11.2 H Volume Immature 0.600 H Granulocytes % Neutrophils % 83.2 H Lymphocytes % 8.8 L Monocytes % 5.0 Eosinophils % 2.1 Basophils % 0.3 Nucleated Red 0.0 Blood Cells % Immature 0.060 H Granulocytes # Neutrophils # 8.2 H Lymphocytes # 0.9 Monocytes # 0.5 Eosinophils # 0.2 Basophils # 0.0 Nucleated Red 0.0 Blood Cells # Sodium Level 137 Potassium Level 4.7 Chloride Level 91 L Carbon Dioxide 33 H Level Anion Gap 13 Blood Urea 111 #H Nitrogen Creatinine 5.13 H Est Glomerular 11 L Filtrat Rate mL/min Glucose Level 116 Calcium Level 8.5 Phosphorus Level 6.5 H Magnesium Level 2.7 H Blood Gas Blood arterial Specimen Source Arterial Blood 08/13/2018 4:35: Date Drawn 27 AM Arterial Blood 7.406 pH (Temp corrected) Arterial Blood 49.6 H pCO2 (Temp correct) Arterial Blood 93.0 pO2 (Temp corrected) Arterial Blood 30.5 H HCO3 Arterial Blood 4.9 H Base Excess Arterial Blood 96.6 Oxygen Saturatio n Lalo Test ACCEPTAB Arterial Blood Right Radial Gas Puncture Site Arterial 1.0 Blood Carboxyhem oglobin Arterial Blood 0.3 Methemoglobin Blood Gas A-a O2 48.1 H Differential Oxyhemoglobin 95.3 Percent Blood Gas 37.0 Temperature Blood Gas TRACH COLLAR Modality FiO2 28.0 Blood Gas MR Notified Whom Blood Gas 08/13/2018 4:50: Notified Time 28 AM Test 08/13/18 05:24 08/13/18 05:46 Lab Scanned BLOOD TRANSFUSI Report ON Bedside Glucose 136 Medications Current Medications IV Flush (NS 3 ml) 3 ml PER PROTOCOL IV ; Start 08/10/18 at 09:30 Lorazepam (Ativan) 0.5 mg Q6H PRN IV ANXIETY Last administered on 08/11/18at 11:18; Admin Dose 0.5 MG; Start 08/10/18 at 09:30 Ondansetron HCl (Zofran Inj) 4 mg Q6H PRN IV NAUSEA AND/OR VOMITING; Start 08/10/18 at 09:30 Acetaminophen (Tylenol Tab) 650 mg Q6H PRN PO PAIN LEVEL 1-3 OR FEVER; Start 08/10/18 at 09:30 Bisacodyl (Dulcolax Supp) 10 mg DAILY PRN [place] CONSTIPATION; Start 08/10/18 at 09:30 Famotidine (Pepcid Iv) 20 mg DAILY IV Last administered on 08/13/18 09:22; Admin Dose 20 MG; Start 08/10/18 at 09:30 Heparin Sodium (Porcine) (Heparin (5000 Units/1ml)) 5,000 unit Q12 SC ; Start 08/10/18 at 21:00; Status Hold Amiodarone HCl (Cordarone) 200 mg DAILY PO Last administered on 08/13/18at 09:15; Admin Dose 200 MG; Start 08/11/18 at 09:00 Cholecalciferol (Vitamin D) 1,000 unit DAILY PO Last administered on 08/13/18 09:15; Admin Dose 1,000 UNIT; Start 08/11/18 at 09:00 Cyanocobalamin (Vitamin B12) 100 mcg DAILY PO Last administered on 08/13/18 09:15; Admin Dose 100 MCG; Start 08/11/18 at 09:00 Folic Acid (Folic Acid) 1 mg DAILY PO Last administered on 08/13/18 09:22; Admin Dose 1 MG; Start 08/11/18 at 09:00 Allopurinol (Zyloprim) 100 mg DAILY PO Last administered on 08/13/18 09:15; Admin Dose 100 MG; Start 08/11/18 at 09:00 Diagnostic Test (Pha) (Accu-Chek) 1 ea 02 XX Last administered on 08/11/18at 02:00; Admin Dose 1 EA; Start 08/11/18 at 02:00 Miscellaneous Information 1 ea NOTE XX ; Start 08/10/18 at 10:30 Glucose (Glutose) 15 gm Q15M PRN PO DECREASED GLUCOSE; Start 08/10/18 at 10:30 Glucose (Glutose) 22.5 gm Q15M PRN PO DECREASED GLUCOSE; Start 08/10/18 at 10:30 Dextrose (D50w Syringe) 25 ml Q15M PRN IV DECREASED GLUCOSE; Start 08/10/18 at 10:30 Dextrose (D50w Syringe) 50 ml Q15M PRN IV DECREASED GLUCOSE; Start 08/10/18 at 10:30 Glucagon (Glucagen) 1 mg Q15M PRN IM DECREASED GLUCOSE; Start 08/10/18 at 10:30 Glucose (Glutose) 15 gm Q15M PRN BUCCAL DECREASED GLUCOSE; Start 08/10/18 at 10:30 Miscellaneous Medication (Bystolic) 5 mg DAILY PO ; Start 08/11/18 at 09:00 Insulin Glargine (Lantus) 23 units DAILY@2000 SC Last administered on 08/12/18 20:04; Admin Dose 23 UNITS; Start 08/10/18 at 20:00 Albumin Human 100 ml @ 100 mls/hr WITH DIALYSIS PRN IV SBP less than 90 mm hg Last administered on 08/12/18 02:16; Admin Dose 100 MLS/HR; Start 08/10/18 at 12:30 Sodium Chloride (NS) -To prime the dialy... DIRECTED FOR HD PRN IV SBP less than 90 mm hg ; Start 08/10/18 at 12:30 Heparin Sodium (Porcine) (Heparin (1000 Units/ml)) 4,000 unit AFTER DIALYSIS CATHETER Last administered on 08/12/18 17:33; Admin Dose 2,800 UNIT; Start 08/10/18 at 12:30 Bumetanide (Bumex) 2 mg BID DIURETICS IV Last administered on 08/12/18 18:27; Admin Dose 2 MG; Start 08/11/18 at 06:00 Collagenase (Santyl) 1 applic DAILY TOP Last administered on 08/13/18 09:16; Admin Dose 1 APPLIC; Start 08/11/18 at 13:00 Collagenase (Santyl) 1 applic PRN PRN [place] SOILAGE; Start 08/11/18 at 13:00 Piperacillin Sod/ Tazobactam Sod 50 ml @ 100 mls/hr Q8 IVPB Last administered on 08/12/18 14:11; Admin Dose 100 MLS/HR; Start 08/11/18 at 15:30 Mannitol 62.5 ml @ 750 mls/hr WITH DIALYSIS PRN IV BUN more than 100 Last administered on 08/12/18 16:21; Admin Dose 750 MLS/HR; Start 08/11/18 at 16:30 Insulin Aspart (Novolog Insulin Pen) (Adult SC Insulin - Mild Algorithm)... Q6 SC Last administered on 08/12/18 18:43; Admin Dose 1 UNIT; Start 08/12/18 at 12:00 Morphine Sulfate (morphine) 2 mg Q4H PRN IV PAIN LEVEL 7-10 Last administered on 08/12/18 15:08; Admin Dose 2 MG; Start 08/12/18 at 15:30 Assessment/Plan Chief Complaint/Hosp Course IMP: 1. Acute on chronic renal failure with volume overload 2. ADHF/Volume overload 3. Acute on chronic Hypercapnic Resp Failure--s/p trach 4. Chronic atrial fibrillation 5. OHS 6. Anemia RECS: 1. Continue PMV as tolerated 2. ST eval later today 3. Cont. HD/UF 4. Am labs/CXR/ABG 5. Transfuse PRBC with next HD Critical care time 40 minutes. Stable for transfer to telemetry. SHARAD ELIAS MD, [facility] Aug 13, 2018 11:53
--- NOTE | 2018-08-13 11:54 | CONS ---
Date/Time of Note Date/Time of Note DATE: 08/13/18 TIME: 11:54 Assessment/Plan Assessment/Plan Assessment/Plan 1. acute Fluid overload with worsening renal failure, Oliguric to anuric- progressed to ESRD 2. Acute Uremia with BUN 223 on admission 3. SHAILA on CKD IV due to ATN 4. acute on chronic hypoxemix respiratory failure currenlty back on Vent, S/p tracheostomy 5. Anemia of ESRD 6. Hyperuricemia 7. Morbid to severe obesity 8. Pickwickian syndrome Plan: HD initiated on 08/11/17 with Temporary norma Catheter placement done by - s/p HD x 2 days in a row, will plan for another HD x 3 hr today plan for possible permacath tomorrow, will keep pt on MWF schedule while being in hospital Allopurinol 100mg po daily Change bumex to 2mg po BID appreciate help from Dr. Pineda- Due to pt body habitus it was very difficult vascular access will follow up Result Diagram: 08/13/18 0444 08/13/18 0444 Results 24hrs Laboratory Tests Test 08/12/18 18:38 08/12/18 19:58 08/12/18 21:30 08/13/18 00:27 Bedside Glucose 146 165 176 146 Test 08/13/18 01:00 08/13/18 04:44 08/13/18 04:45 08/13/18 05:00 Stool Occult NEGATIVE Blood White Blood 9.8 # Count Red Blood Count 2.50 L Hemoglobin 7.5 L Hematocrit 25.0 L Mean Corpuscular 100.0 Volume Mean Corpuscular 30.0 Hemoglobin Mean Corpuscular 30.0 L Hemoglobin Maryann nt Red Cell 20.9 H Distribution Width Platelet Count 166 Mean Platelet 11.2 H Volume Immature 0.600 H Granulocytes % Neutrophils % 83.2 H Lymphocytes % 8.8 L Monocytes % 5.0 Eosinophils % 2.1 Basophils % 0.3 Nucleated Red 0.0 Blood Cells % Immature 0.060 H Granulocytes # Neutrophils # 8.2 H Lymphocytes # 0.9 Monocytes # 0.5 Eosinophils # 0.2 Basophils # 0.0 Nucleated Red 0.0 Blood Cells # Sodium Level 137 Potassium Level 4.7 Chloride Level 91 L Carbon Dioxide 33 H Level Anion Gap 13 Blood Urea 111 #H Nitrogen Creatinine 5.13 H Est Glomerular 11 L Filtrat Rate mL/min Glucose Level 116 Calcium Level 8.5 Phosphorus Level 6.5 H Magnesium Level 2.7 H Blood Gas Blood arterial Specimen Source Arterial Blood 08/13/2018 4:35: Date Drawn 27 AM Arterial Blood 7.406 pH (Temp corrected) Arterial Blood 49.6 H pCO2 (Temp correct) Arterial Blood 93.0 pO2 (Temp corrected) Arterial Blood 30.5 H HCO3 Arterial Blood 4.9 H Base Excess Arterial Blood 96.6 Oxygen Saturatio n Lalo Test ACCEPTAB Arterial Blood Right Radial Gas Puncture Site Arterial 1.0 Blood Carboxyhem oglobin Arterial Blood 0.3 Methemoglobin Blood Gas A-a O2 48.1 H Differential Oxyhemoglobin 95.3 Percent Blood Gas 37.0 Temperature Blood Gas TRACH COLLAR Modality FiO2 28.0 Blood Gas MR Notified Whom Blood Gas 08/13/2018 4:50: Notified Time 28 AM Test 08/13/18 05:24 08/13/18 05:46 Lab Scanned BLOOD TRANSFUSI Report ON Bedside Glucose 136 Consultation Date/Type/Reason Admit Date/Time Aug 10, 2018 at 05:03 Initial Consult Date 08/10/18 Type of Consult NEPHROLOGY Requesting Provider: EJ GRADY 24 HR Interval Summary Free Text/Dictation s/p HD 2 days in a row, plan for another session of HD today, afebrile, BP stable, Plan for permacath tomorrow Exam/Review of Systems Vital Signs Vitals Vital Signs Date Temp Pulse Resp B/P (MAP) Pulse Ox O2 O2 Flow FiO2 Time Delivery Rate 08/13/18 86 20 97/78 (84) 99 Trach 10:00 Collar 08/13/18 97.5 08:00 08/13/18 5.0 08:00 08/13/18 28 05:10 Intake and Output 08/12/18 08/12/18 08/13/18 1414:59 22:59 06:59 IntakeIntake Total 370 ml 515.0 ml 120 ml OutputOutput Total 20 ml 55 ml 11 ml BalanceBalance 350 ml 460.0 ml 109 ml Exam Constitutional: alert, awake, morbidly obese, ENMT: other (Status post tracheostomy) Respiratory: diminished breath sounds (Bilaterally, patient with congestion.) Cardiovascular: irregular rhythm (Controlled atrial fibrillation) Gastrointestinal: soft, non-tender, morbidly obese, + harp catheter in place Musculoskeletal: Diffuse anasarca Extremities: normal pulses, other (Anasarca) Neurological: TECHNOLOGY SOLUTIONS ARCHITECT II-XII intact, nl mental status, Medications Medications Current Medications IV Flush (NS 3 ml) 3 ml PER PROTOCOL IV ; Start 08/10/18 at 09:30 Lorazepam (Ativan) 0.5 mg Q6H PRN IV ANXIETY Last administered on 08/11/18 11:18; Admin Dose 0.5 MG; Start 08/10/18 at 09:30 Ondansetron HCl (Zofran Inj) 4 mg Q6H PRN IV NAUSEA AND/OR VOMITING; Start at 09:30 Acetaminophen (Tylenol Tab) 650 mg Q6H PRN PO PAIN LEVEL 1-3 OR FEVER; Start 08/10/18 at 09:30 Bisacodyl (Dulcolax Supp) 10 mg DAILY PRN NC CONSTIPATION; Start 08/10/18 at 09:30 Famotidine (Pepcid Iv) 20 mg DAILY IV Last administered on 08/13/18 09:22; Admin Dose 20 MG; Start 08/10/18 at 09:30 Heparin Sodium (Porcine) (Heparin (5000 Units/1ml)) 5,000 unit Q12 SC ; Start 08/10/18 at 21:00; Status Hold Amiodarone HCl (Cordarone) 200 mg DAILY PO Last administered on 08/13/18 09:15; Admin Dose 200 MG; Start 08/11/18 at 09:00 Cholecalciferol (Vitamin D) 1,000 unit DAILY PO Last administered on 08/13/18 09:15; Admin Dose 1,000 UNIT; Start 08/11/18 at 09:00 Cyanocobalamin (Vitamin B12) 100 mcg DAILY PO Last administered on 08/13/18 09:15; Admin Dose 100 MCG; Start 08/11/18 at 09:00 Folic Acid (Folic Acid) 1 mg DAILY PO Last administered on 08/13/18 09:22; Admin Dose 1 MG; Start 08/11/18 at 09:00 Allopurinol (Zyloprim) 100 mg DAILY PO Last administered on 08/13/18 09:15; Admin Dose 100 MG; Start 08/11/18 at 09:00 Diagnostic Test (Pha) (Accu-Chek) 1 ea 02 XX Last administered on 08/11/18at 02:00; Admin Dose 1 EA; Start 08/11/18 at 02:00 Miscellaneous Information 1 ea NOTE XX ; Start 08/10/18 at 10:30 Glucose (Glutose) 15 gm Q15M PRN PO DECREASED GLUCOSE; Start 08/10/18 at 10:30 Glucose (Glutose) 22.5 gm Q15M PRN PO DECREASED GLUCOSE; Start 08/10/18 at 10 :30 Dextrose (D50w Syringe) 25 ml Q15M PRN IV DECREASED GLUCOSE; Start 08/10/18 at 10:30 Dextrose (D50w Syringe) 50 ml Q15M PRN IV DECREASED GLUCOSE; Start 08/10/18 at 10:30 Glucagon (Glucagen) 1 mg Q15M PRN IM DECREASED GLUCOSE; Start 08/10/18 at 10:30 Glucose (Glutose) 15 gm Q15M PRN BUCCAL DECREASED GLUCOSE; Start 08/10/18 at 10:30 Miscellaneous Medication (Bystolic) 5 mg DAILY PO ; Start 08/11/18 at 09:00 Insulin Glargine (Lantus) 23 units DAILY@2000 SC Last administered on 08/12/18at 20:04; Admin Dose 23 UNITS; Start 08/10/18 at 20:00 Albumin Human 100 ml @ 100 mls/hr WITH DIALYSIS PRN IV SBP less than 90 mm hg Last administered on 08/12/18at 02:16; Admin Dose 100 MLS/HR; Start 08/10/18 at 12:30 Sodium Chloride (NS) -To prime the dialy... DIRECTED FOR HD PRN IV SBP less than 90 mm hg ; Start 08/10/18 at 12:30 Heparin Sodium (Porcine) (Heparin (1000 Units/ml)) 4,000 unit AFTER DIALYSIS CATHETER Last administered on 08/12/18at 17:33; Admin Dose 2,800 UNIT; Start 08/10/18 at 12:30 Bumetanide (Bumex) 2 mg BID DIURETICS IV Last administered on 08/12/18at 18:27; Admin Dose 2 MG; Start 08/11/18 at 06:00 Collagenase (Santyl) 1 applic DAILY TOP Last administered on 08/13/18at 09:16; Admin Dose 1 APPLIC; Start 08/11/18 at 13:00 Collagenase (Santyl) 1 applic PRN PRN TOP SOILAGE; Start 08/11/18 at 13:00 Piperacillin Sod/ Tazobactam Sod 50 ml @ 100 mls/hr Q8 IVPB Last administered on 08/12/18at 14:11; Admin Dose 100 MLS/HR; Start 08/11/18 at 15:30 Mannitol 62.5 ml @ 750 mls/hr WITH DIALYSIS PRN IV BUN more than 100 Last administered on 08/12/18at 16:21; Admin Dose 750 MLS/HR; Start 08/11/18 at 16:30 Insulin Aspart (Novolog Insulin Pen) (Adult SC Insulin - Mild Algorithm)... Q6 SC Last administered on 08/12/18at 18:43; Admin Dose 1 UNIT; Start 08/12/18 at 12:00 Morphine Sulfate (morphine) 2 mg Q4H PRN IV PAIN LEVEL 7-10 Last administered on 08/12/18at 15:08; Admin Dose 2 MG; Start 08/12/18 at 15:30 RUY WERNER MD Aug 13, 2018 11:54
[2018-08-13] MEDS: MANNITOL 20% 62.5 ML IV PRN ×2 (13:24→15:26)
[2018-08-13] MEDS: ALBUMIN HUMAN 25% 100 ML IV PRN (14:22)
--- NOTE | 2018-08-13 16:00 | NUR ---
Pt completed hemodialysis well with Mannitol 12.5 Gm x2 and Albumin 25% 100 ml IV ,administer per Dr Guadarrama's order . Total uf removed 1600 ml pt endorsed to his primary RN Maria Ines Williamson RN.
[2018-08-13] MEDS ORDERED: HEPARIN 1000 UNITS/ML 10 ML INJ ONE (16:04)
--- NOTE | 2018-08-13 16:11 | RADRPT ---
Echocardiogram Report Patient Name: LAUREEN WHITFIELD Gender: Male Date: 1955 Study Date: 10-Aug-2018 Nursing Aide: Jeannette Duval RDCS Location: 113 Ref. Physician: DEBORA GRADY Quality: Technically Difficult Study Procedures: Transthoracic echocardiogram with complete 2D, M-Mode, and doppler examination. Indications: Congestive Heart Failure. 2D/M Mode Doppler Measurement Value Normal Ranges Measurement Value Normal Ranges LVIDd 2D 5.1 3.5 - 5.6 cm LAUREN VTI 1.5 cm2 LVIDs 2D 3.2 2.1 - 4.1 cm AV Mean Jacob 2.0 m/sec LVPWd 2D 1.2 0.6 - 1.1 cm AV Mean PG 20.0 mmHg IVSd 2D 1.2 0.6 - 1.1 cm AV VTI 60.6 cm AoR Diam 2D 2.6 2.0 - 3.7 cm AI Peak PG 45.0 mmHg LA/Ao 2D 2 0 - 1 AI Peak Jacob 3.3 m/sec LA Dimen 2D 5.4 2.3 - 4.0 cm AI PHT 629.0 msec LVOT Diam 2.0 cm LVOT Mean Jacob 0.9 m/sec LVOT Mean PG 4.0 mmHg LVOT Peak Jacob 1.4 m/sec LVOT Peak PG 7.0 mmHg MV E Peak Jacob 1.2 m/sec MV Decel Time 180 msec TAPSE 1.9 cm Findings Left Ventricle: Normal left ventricular cavity size. Mild concentric left ventricular hypertrophy. Mild left ventricular systolic dysfunction. Ejection fraction is visually estimated at 45 %. Abnormal Diastolic Function. Right Ventricle: Normal right ventricular systolic function. Mild enlargement of right ventricle. Left Atrium: There is moderate enlargement of left atrium. Right Atrium: The right atrium is normal in size. Mitral Valve: Mitral valve leaflets appear mildly thickened. Mild mitral annular calcification. Mild to moderate mitral valve regurgitation. The regurgitation jet is eccentrically directed which may underestimate the severity of mitral regurgitation. Aortic Valve: Mild to moderate aortic stenosis. Mean PG 20.00 mmHg. Aortic cusps appear moderately calcified. Mild aortic valve regurgitation. Tricuspid Valve: Normal appearance of the tricuspid valve. There is mild tricuspid regurgitation. Pulmonic Valve: Normal pulmonic valve appearance. Pericardium: Normal pericardium with no significant pericardial effusion. Aorta: Normal aortic root. IVC: Dilated IVC without respiratory collapse consistent with elevated right atrial pressure. Conclusions Normal left ventricular cavity size. Mild concentric left ventricular hypertrophy. Mild left ventricular systolic dysfunction. Ejection fraction is visually estimated at 45 %. Abnormal Diastolic Function. Normal right ventricular systolic function. Mild enlargement of right ventricle. There is moderate enlargement of left atrium. The right atrium is normal in size. Mild to moderate mitral valve regurgitation. The regurgitation jet is eccentrically directed which may underestimate the severity of mitral regurgitation. Mild to moderate aortic stenosis. Mild aortic valve regurgitation. There is mild tricuspid regurgitation. Normal pericardium with no significant pericardial effusion. Electronically Signed By: Isaac Winston 13-Aug-2018 16:11:32 -0800 Patient Name: LAUREEN WHITFIELD Study Date: 10-Aug-2018 [id number]
[2018-08-13] MEDS: HEPARIN 1000 UNITS/ML 10 ML INJ CATHETER SCH (16:19)
--- NOTE | 2018-08-13 18:55 | NUR ---
EOSS: NO SIGNIFICANT EVENTS THROUGHOUT SHIFT. PT WAS CONFUSED AT TIMES, BUT PLEASANT & COMPLIANT. HD PERFORMED TODAY. PT C/O PAIN TO ABD & BACK BUT REFUSES PAIN MEDS. POC UPDATED & CONTINUED.
[2018-08-13] MEDS: INSULIN GLARGINE [LANTus] (100 UNITS/ML) SYG SC SCH (20:11)
[2018-08-14] VITALS (20 sets, daily range): BP systolic 88–140; BP diastolic 62–88; PULSE 80–96; RESP 9–30
[2018-08-14] MEDS: ACCU-CHEK XX SCH (02:00)
[2018-08-14] MEDS: PIPER-TAZO 2.25 GM (PMX) 50 ML IVPB SCH ×3 (05:40→22:09)
[2018-08-14] MEDS: BUMETANIDE 1 MG TAB GTB SCH ×2 (05:40→18:13)
[2018-08-14] MEDS: Insulin NOVOLOG SS MILD Algorithm (NPO/TPN/ENTERAL FEEDS) SC SCH ×5 (05:44→23:50)
--- NOTE | 2018-08-14 05:59 | NUR ---
EOSS Pt vitals within MD parameter. Confused and forgetful at times, but able to be reoriented. No reports of pain or discomfort. TF held at midnight for possible permacath placement today. Oliguric. BM x2. Comfort and safety measures addressed, no other acute events to report.
--- NOTE | 2018-08-14 06:28 | PN ---
DATE: 08/13/2018 SUBJECTIVE: Patient is on trach vent. Alert and responsive. No complaints. Vital signs are stable . He is afebrile. CHEST: Lungs are clear to auscultation bilaterally. HEART: Regular rate and rhythm. ABDOMEN: Soft, nontender, nondistended. Normoactive bowel sounds. EXTREMITIES: Mild lower extremity edema. NEUROLOGIC: Moves all extremities. The white blood cell count 9.8, hemoglobin 7.5, platelet count 156,000. Sodium 137, potassium 4.1, c hloride 99, bicarbonate 33, BUN is 111, creatinine 5.13, glucose 116. Magnesium is 2.7, phosphorus i s 6.5. ASSESSMENT AND PLAN: A 63-year-old male with: 1. Acute on chronic kidney injury, requiring the initiation of hemodialysis. 2. Chronic respiratory failure, on trach vent. 3. Volume overload. 4. Chronic atrial fibrillation. 5. Diastolic congestive heart failure defibrillation. 6. Pickwickian syndrome. 7. Type 2 diabetes mellitus. 8. Gout. 9. Hypertension. 10. Obstructive sleep apnea. 11. Anemia. PLAN: 1. Transfer to telemetry. Repeat hemodialysis today. 2. Consider a Perm-A-Cath placement. 3. Dr. Yon Guadarrama was notified. I requested a call back. 4. Plan of care was discussed with the patient. Dictated By: LEIF FONTAINE/HUBERT Conf#: [id number] DID#: [id number]
[2018-08-14] MEDS: NEBIVOLOL 5 MG TAB PO SCH (08:30)
[2018-08-14] MEDS: FAMOTIDINE 20 MG INJ IV SCH (08:47)
[2018-08-14] MEDS: COLLAGENASE 5 GM (UD JAR) TOP SCH ×2 (08:48→22:08)
[2018-08-14] MEDS: CHOLECALCIFEROL 1,000 UNIT TAB PO SCH (08:48)
[2018-08-14] MEDS: FOLIC ACID 1 MG TAB PO SCH (08:48)
[2018-08-14] MEDS: CYANOCOBALAMIN 100 MCG TAB PO SCH (08:48)
[2018-08-14] MEDS: AMIODARONE 200 MG TAB PO SCH ×2 (08:48→09:18)
[2018-08-14] MEDS: ALLOPURINOL 100 MG TAB PO SCH ×2 (08:49→09:18)
--- NOTE | 2018-08-14 09:16 | CONS ---
Date/Time of Note Date/Time of Note DATE: 08/14/18 TIME: 09:13 Assessment/Plan Assessment/Plan Assessment/Plan Assessment and recommendations; 1 patient admitted with sepsis with significant interval improvement. 2. History of renal failure, on hemodialysis. 3. Severe anemia and mild thrombocytopenia. 4. Chronic atrial fibrillation. 5. Diabetes. 6. CHF. 7. Scant right lower lobe pneumonia. Continue current supportive care. Transfer to telemetry unit. Hemodialysis per fire tower keeper. Obtain follow-up chest x-ray in 48 hours. Transfuse packed RBCs. Result Diagram: 08/14/182 08/14/182 Results 24hrs Laboratory Tests Test 08/13/18 11:56 08/13/18 12:20 08/13/18 18:24 08/13/18 20:08 Bedside Glucose 165 165 184 Blood Gas Blood arterial Specimen Source Arterial Blood 08/13/2018 12:19: Date Drawn 36 AM Arterial Blood pH 7.408 (Temp corrected) Arterial Blood 44.9 pCO2 (Temp correct) Arterial Blood 82.9 pO2 (Temp corrected) Arterial Blood 27.7 H HCO3 Arterial Blood 2.7 Base Excess Arterial Blood 95.6 Oxygen Saturation Lalo Test ACCEPTAB Arterial Blood Right Radial Gas Puncture Site Arterial 0.8 Blood Carboxyhemo globin Arterial Blood 0.3 Methemoglobin Blood Gas A-a O2 63.8 H Differential Oxyhemoglobin 94.5 Percent Blood Gas 37.0 Temperature Blood Gas Actual 20 Respiration Rate Blood Gas TRACH COLLAR Modality FiO2 28.0 Blood Gas KB Notified Whom Blood Gas 08/13/2018 12:30: Notified Time 28 AM Test 08/13/18 23:56 08/14/18 04:42 08/14/18 05:39 Bedside Glucose 127 112 White Blood Count 10.0 Red Blood Count 2.51 L Hemoglobin 7.4 L Hematocrit 25.5 L Mean Corpuscular 101.6 H Volume Mean Corpuscular 29.5 Hemoglobin Mean Corpuscular 29.0 L Hemoglobin Concen t Red Cell 20.7 H Distribution Width Platelet Count 143 Mean Platelet 11.3 H Volume Immature 0.600 H Granulocytes % Neutrophils % 81.8 H Lymphocytes % 8.5 L Monocytes % 5.5 Eosinophils % 3.5 Basophils % 0.1 Nucleated Red 0.0 Blood Cells % Immature 0.060 H Granulocytes # Neutrophils # 8.2 H Lymphocytes # 0.9 Monocytes # 0.6 Eosinophils # 0.4 Basophils # 0.0 Nucleated Red 0.0 Blood Cells # Sodium Level 137 Potassium Level 4.4 Chloride Level 95 L Carbon Dioxide 29 Level Anion Gap 13 Blood Urea 83 H Nitrogen Creatinine 4.62 H Est Glomerular 13 L Filtrat Rate mL/min Glucose Level 112 Calcium Level 8.8 Consultation Date/Type/Reason Admit Date/Time Aug 10, 2018 at 05:03 Initial Consult Date 08/10/18 Type of Consult Pulmonary/critical care Reason for Consultation Patient condition is stable. Remains completely awake and alert. Has remained hemodynamically stable. General exam; elderly male, awake and alert. Currently in no distress. Able to talk Via Passy-Cooks valve. Requesting Provider: EJ GRADY Exam/Review of Systems Vital Signs Vitals Vital Signs Date Temp Pulse Resp B/P (MAP) Pulse Ox O2 O2 Flow FiO2 Time Delivery Rate 08/14/18 100 5.0 28 07:43 08/14/18 90 20 Aerosol 07:43 Aerosol Mask 08/14/18 109/75 06:00 (86) 08/14/18 98.5 04:00 Intake and Output 08/13/18 08/13/18 08/14/18 1515:00 23:00 07:00 IntakeIntake Total 390 ml 610 ml 140 ml OutputOutput Total 300 ml 210 ml 10 ml BalanceBalance 90 ml 400 ml 130 ml Exam H EENT exam; supple neck, positive JVD. No lymphadenopathy. Midline trachea. No thyromegaly. Tracheostomy in place. Insertion site is clean. Patient has fair dentition. No neck masses. Pupils are small bilaterally. Chest exam; diminished but clear breath sounds. S1-S2 audible, no murmurs. Irregular rhythm. Abdomen exam; soft, nontender. No organomegaly. Bowel sounds audible. Extremity exam; trace edema in lower extremities. Pulses 1+. MANAGER TRANSFER exam; no focal deficit. Medications Medications Current Medications IV Flush (NS 3 ml) 3 ml PER PROTOCOL IV ; Start 08/10/18 at 09:30 Lorazepam (Ativan) 0.5 mg Q6H PRN IV ANXIETY Last administered on 08/11/18at 11:18; Admin Dose 0.5 MG; Start 08/10/18 at 09:30 Ondansetron HCl (Zofran Inj) 4 mg Q6H PRN IV NAUSEA AND/OR VOMITING; Start 08/10/18 at 09:30 Acetaminophen (Tylenol Tab) 650 mg Q6H PRN PO PAIN LEVEL 1-3 OR FEVER; Start 08/10/18 at 09:30 Bisacodyl (Dulcolax Supp) 10 mg DAILY PRN NE CONSTIPATION; Start 08/10/18 at 09:30 Famotidine (Pepcid Iv) 20 mg DAILY IV Last administered on 08/14/18at 08:47; Admin Dose 20 MG; Start 08/10/18 at 09:30 Heparin Sodium (Porcine) (Heparin (5000 Units/1ml)) 5,000 unit Q12 SC ; Start 08/10/18 at 21:00; Status Hold Amiodarone HCl (Cordarone) 200 mg DAILY PO Last administered on 08/13/18at 09:15; Admin Dose 200 MG; Start 08/11/18 at 09:00 Cholecalciferol (Vitamin D) 1,000 unit DAILY PO Last administered on 08/13/18at 09:15; Admin Dose 1,000 UNIT; Start 08/11/18 at 09:00 Cyanocobalamin (Vitamin B12) 100 mcg DAILY PO Last administered on 08/13/18 09:15; Admin Dose 100 MCG; Start 08/11/18 at 09:00 Folic Acid (Folic Acid) 1 mg DAILY PO Last administered on 08/13/18 09:22; Admin Dose 1 MG; Start 08/11/18 at 09:00 Allopurinol (Zyloprim) 100 mg DAILY PO Last administered on 08/13/18 09:15; A dmin Dose 100 MG; Start 08/11/18 at 09:00 Diagnostic Test (Pha) (Accu-Chek) 1 ea 02 XX Last administered on 08/11/18at 02:00; Admin Dose 1 EA; Start 08/11/18 at 02:00 Miscellaneous Information 1 ea NOTE XX ; Start 08/10/18 at 10:30 Glucose (Glutose) 15 gm Q15M PRN PO DECREASED GLUCOSE; Start 08/10/18 at 10:30 Glucose (Glutose) 22.5 gm Q15M PRN PO DECREASED GLUCOSE; Start 08/10/18 at 10:30 Dextrose (D50w Syringe) 25 ml Q15M PRN IV DECREASED GLUCOSE; Start 08/10/18 at 10:30 Dextrose (D50w Syringe) 50 ml Q15M PRN IV DECREASED GLUCOSE; Start 08/10/18 at 10:30 Glucagon (Glucagen) 1 mg Q15M PRN IM DECREASED GLUCOSE; Start 08/10/18 at 10:30 Glucose (Glutose) 15 gm Q15M PRN BUCCAL DECREASED GLUCOSE; Start 08/10/18 at 10:30 Miscellaneous Medication (Bystolic) 5 mg DAILY PO ; Start 08/11/18 at 09:00 Insulin Glargine (Lantus) 23 units DAILY@2000 SC Last administered on 08/13/18at 20:11; Admin Dose 23 UNITS; Start 08/10/18 at 20:00 Albumin Human 100 ml @ 100 mls/hr WITH DIALYSIS PRN IV SBP less than 90 mm hg Last administered on 08/13/18at 14:22; Admin Dose 100 MLS/HR; Start 08/10/18 at 12:30 Sodium Chloride (NS) -To prime the dialy... DIRECTED FOR HD PRN IV SBP less than 90 mm hg ; Start 08/10/18 at 12:30 Heparin Sodium (Porcine) (Heparin (1000 Units/ml)) 4,000 unit AFTER DIALYSIS CATHETER Last administered on 08/13/18at 16:19; Admin Dose 4,000 UNIT; Start 08/10/18 at 12:30 Collagenase (Santyl) 1 applic DAILY TOP Last administered on 08/14/18at 08:48; Admin Dose 1 APPLIC; Start 08/11/18 at 13:00 Collagenase (Santyl) 1 applic PRN PRN TOP SOILAGE; Start 08/11/18 at 13:00 Piperacillin Sod/ Tazobactam Sod 50 ml @ 100 mls/hr Q8 IVPB Last administered on 08/14/18at 05:40; Admin Dose 100 MLS/HR; Start 08/11/18 at 15:30 Mannitol 62.5 ml @ 750 mls/hr WITH DIALYSIS PRN IV BUN more than 100 Last administered on 08/13/18at 15:26; Admin Dose 750 MLS/HR; Start 08/11/18 at 16:30 Insulin Aspart (Novolog Insulin Pen) (Adult SC Insulin - Mild Algorithm)... Q6 SC Last administered on 08/13/18at 18:30; Admin Dose 1 UNIT; Start 08/12/18 at 12:00 Morphine Sulfate (morphine) 2 mg Q4H PRN IV PAIN LEVEL 7-10 Last administered on 08/12/18at 15:08; Admin Dose 2 MG; Start 08/12/18 at 15:30 Bumetanide (Bumex) 2 mg BID DIURETICS GTB Last administered on 08/14/18at 05:40; Admin Dose 2 MG; Start 08/14/18 at 06:00 ARMOND PAUL Aug 14, 2018 09:16
--- NOTE | 2018-08-14 09:35 | NUR ---
NURSING NOTES PATIENT AGITATED AND STATED, "I AM GOING CRAZY. THERE'S NOTHING TO DO OR SEE -- I LIKE TO SEE OUTSIDE MY ROOM. I WANT TO LEAVE THE HOSPITAL." THIS RN INFORMED PATIENT THAT ARE NO CURRENT BEDS AVAILABLE IN THE UNIT THAT WOULD PROVIDE PATIENT WITH A BETTER VIEW. HOWEVER, THIS RN PROVIDED THE PATIENT WITH A TV, AND PATIENT CALMED DOWN AND VOICED SATISFACTION WITH TV. PATIENT REQUESTED PHYSICAL THERAPY. THIS RN PAGED DR. BENJAMIN, AND DOCTOR PROMPTLY RETURNED CALL. ORDER FOR PHYSICAL THERAPY TO BE INPUTTED.
[2018-08-14] MEDS ORDERED: LIDOCAINE 1% (MDV) 20 ML INJ ONE (10:57)
[2018-08-14] MEDS ORDERED: HEPARIN 1000 UNITS/ML 10 ML INJ ONE (10:57)
--- NOTE | 2018-08-14 10:59 | NUR ---
ST order received and appreciated. ST attempted to see pt inorder to determine swallowing function. Pt was in permecat lab. ST will f/u as schedule permits.
--- NOTE | 2018-08-14 11:39 | HPN ---
Date/Time of Note Date/Time of Note DATE: 08/14/18 TIME: 11:39 Interval H&P Admission Note Pt. seen H&P reviewed: No system changes LUPILLO MELGOZA MD Aug 14, 2018 11:39
--- NOTE | 2018-08-14 11:58 | RADRPT ---
PROCEDURE: PLACEMENT OF RIGHT INTERNAL JUGULAR VENOUS TUNNELED DIALYSIS CATHETER. CLINICAL INDICATION: Renal failure. TECHNIQUE: Prior to the procedure, informed consent was obtained. Risks including bleeding, infection, and pneum othorax were explained to the patient and/or the patient's family. The patient and/or the patient's f amily understood and was willing to proceed. A procedural pause was performed. The patient's name, da te of , and procedure to be performed were verified. The central line was inserted with all [place] ents of maximal sterile barrier technique. All of the following were used: head covering, facial mask , sterile gown, sterile gloves, a large sterile sheet, hand hygiene, and 2% chlorhexidine for cutane ous antisepsis. The right neck and anterior/superior chest wall was prepped and draped in usual ster ile fashion. Limited sonography of the right neck was then performed. Noted is a patent right internal jugular vei n. Ultrasound images were recorded and stored in the patient's medical record. Following the local injection of Xylocaine, the right internal jugular vein was punctured under sonog raphic guidance with a 20-gauge needle through which a 0.018 inch floppy tip guidewire was advanced i nto the superior vena cava. The tract was dilated to 5 Maltese and the wire was then replaced with a 0 .035 in Amplatz guidewire. A tunnel was then created from the anterior lateral aspect of the superio r right chest wall to the puncture site in the neck and the catheter was pulled through the tract. S erial dilatation was then performed and a 16 Maltese peel away sheath was introduced. The 14.5 Maltese 27 cm tip to cuff Angiodynamics BioFlo DuraMax dialysis catheter was advanced through the 16 Maltese peel-away sheath. The tip of the catheter was confirmed in position within the right atrium. The peel -away sheath was removed. The 2 ports were each flushed with 2.3 ml of 1:1000 heparin. The catheter was secured to the skin with 3-0 Ethilon suture. The wound in the neck was closed with 4-0 Vicryl suture using subcuticular running technique. The site was dressed. The patient tolerated the procedure well. Specimens: None. Blood loss: 5 ml. Complications: None. File System Installer: Bereniece - bolt labeler/Check Pilot Anesthesia: Local and moderate sedation. Graft/Implant: Tunneled dialysis catheter. COMPARISON: Chest radiograph dated August 13, 2018. FINDINGS: Final radiographic images demonstrate the tip of the catheter in the upper right atrium. A tracheost johanny tube is also noted in satisfactory position. A total of 0.2 minutes of fluoroscopy time was used. The ultrasound images demonstrate the needle entering the jugular vein. Ultrasound images were rec orded and stored in the patient's medical record. 3 images of the chest were obtained with image inte nsifier. IMPRESSION: 1. Percutaneous insertion of right internal jugular dialysis tunneled dialysis catheter under fluoros copic and sonographic guidance. RPTAT: QQ .Mohinder Scanlon MD, MD Date Time Electronically viewed and signed by .Mohinder Scanlon MD, on 08/14/2018 11:57 .R/
--- NOTE | 2018-08-14 12:01 | CONS ---
Assessment/Plan Assessment/Plan Assessment/Plan 1. acute Fluid overload with worsening renal failure, Oliguric to anuric- progressed to ESRD - started on HD on 08/11/18 2. Acute Uremia with BUN 223 on admission 3. SHAILA on CKD IV due to ATN 4. acute on chronic hypoxemix respiratory failure currenlty back on Vent, S/p tracheostomy 5. Anemia of ESRD 6. Hyperuricemia 7. Morbid to severe obesity 8. Pickwickian syndrome Plan: HD initiated on 08/11/18 -s/p HD yesterday - 500 cc removed, BUN/Cr 83/4.62, s/p Permacath placement on 08/13/18- will plan to use permacath for HD on monday08/15/18- if works good then plan is d/c temporary norma HD catheter HD ordered for monday- will keep pt on MWF schedule while being in hospital Allopurinol 100mg po daily Change bumex to 2mg po BID appreciate help from Dr. Pineda- Due to pt body habitus it was very difficult vascular access will follow up Result Diagram: 08/14/18 0442 08/14/18 0442 Results 24hrs Laboratory Tests Test 08/13/18 12:20 08/13/18 18:24 08/13/18 20:08 08/13/18 23:56 Blood Gas Blood arterial Specimen Source Arterial Blood 08/13/2018 12:19: Date Drawn 36 AM Arterial Blood pH 7.408 (Temp corrected) Arterial Blood 44.9 pCO2 (Temp correct) Arterial Blood 82.9 pO2 (Temp corrected) Arterial Blood 27.7 H HCO3 Arterial Blood 2.7 Base Excess Arterial Blood 95.6 Oxygen Saturation Lalo Test ACCEPTAB Arterial Blood Right Radial Gas Puncture Site Arterial 0.8 Blood Carboxyhemo globin Arterial Blood 0.3 Methemoglobin Blood Gas A-a O2 63.8 H Differential Oxyhemoglobin 94.5 Percent Blood Gas 37.0 Temperature Blood Gas Actual 20 Respiration Rate Blood Gas TRACH COLLAR Modality FiO2 28.0 Blood Gas KB Notified Whom Blood Gas 08/13/2018 12:30: Notified Time 28 AM Bedside Glucose 165 184 127 Test 08/14/18 04:42 08/14/18 05:39 08/14/18 11:58 White Blood Count 10.0 Red Blood Count 2.51 L Hemoglobin 7.4 L Hematocrit 25.5 L Mean Corpuscular 101.6 H Volume Mean Corpuscular 29.5 Hemoglobin Mean Corpuscular 29.0 L Hemoglobin Concen t Red Cell 20.7 H Distribution Width Platelet Count 143 Mean Platelet 11.3 H Volume Immature 0.600 H Granulocytes % Neutrophils % 81.8 H Lymphocytes % 8.5 L Monocytes % 5.5 Eosinophils % 3.5 Basophils % 0.1 Nucleated Red 0.0 Blood Cells % Immature 0.060 H Granulocytes # Neutrophils # 8.2 H Lymphocytes # 0.9 Monocytes # 0.6 Eosinophils # 0.4 Basophils # 0.0 Nucleated Red 0.0 Blood Cells # Sodium Level 137 Potassium Level 4.4 Chloride Level 95 L Carbon Dioxide 29 Level Anion Gap 13 Blood Urea 83 H Nitrogen Creatinine 4.62 H Est Glomerular 13 L Filtrat Rate mL/min Glucose Level 112 Calcium Level 8.8 Bedside Glucose 112 94 Consultation Date/Type/Reason Admit Date/Time Aug 10, 2018 at 05:03 Initial Consult Date 08/10/18 Type of Consult NEPHROLOGY Requesting Provider: EJ GRADY 24 HR Interval Summary Free Text/Dictation s/p HD yesterday - 500 cc removed, BUN/Cr 83/4.62, Bp stable Exam/Review of Systems Vital Signs Vitals Vital Signs Date Temp Pulse Resp B/P (MAP) Pulse Ox O2 O2 Flow FiO2 Time Delivery Rate 08/14/18 2.0 11:00 08/14/18 90 17 94/76 (82) 99 Trach 10:00 Collar 08/14/18 98.2 08:00 08/14/18 28 07:43 Intake and Output 08/13/18 08/13/18 08/14/18 1515:00 23:00 07:00 IntakeIntake Total 390 ml 610 ml 140 ml OutputOutput Total 300 ml 210 ml 20 ml BalanceBalance 90 ml 400 ml 120 ml Exam Constitutional: alert, awake, morbidly obese, ENMT: other (Status post tracheostomy) Respiratory: diminished breath sounds (Bilaterally, patient with congestion.) Cardiovascular: irregular rhythm (Controlled atrial fibrillation) Gastrointestinal: soft, non-tender, morbidly obese, + harp catheter in place Musculoskeletal: Diffuse anasarca Extremities: normal pulses, other (Anasarca) Neurological: STREET SPRINKLER II-XII intact, nl mental status, Medications Medications Current Medications IV Flush (NS 3 ml) 3 ml PER PROTOCOL IV ; Start 08/10/18 at 09:30 Lorazepam (Ativan) 0.5 mg Q6H PRN IV ANXIETY Last administered on 08/11/18at 11:18; Admin Dose 0.5 MG; Start 08/10/18 at 09:30 Ondansetron HCl (Zofran Inj) 4 mg Q6H PRN IV NAUSEA AND/OR VOMITING; Start 08/10/18 at 09:30 Acetaminophen (Tylenol Tab) 650 mg Q6H PRN PO PAIN LEVEL 1-3 OR FEVER; Start 08/10/18 at 09:30 Bisacodyl (Dulcolax Supp) 10 mg DAILY PRN HI CONSTIPATION; Start 08/10/18 at 09:30 Famotidine (Pepcid Iv) 20 mg DAILY IV Last administered on 08/14/18at 08:47; Admin Dose 20 MG; Start 08/10/18 at 09:30 Heparin Sodium (Porcine) (Heparin (5000 Units/1ml)) 5,000 unit Q12 SC ; Start 08/10/18 at 21:00; Status Hold Amiodarone HCl (Cordarone) 200 mg DAILY PO Last administered on 08/14/18 09:1 8; Admin Dose 200 MG; Start 08/11/18 at 09:00 Cholecalciferol (Vitamin D) 1,000 unit DAILY PO Last administered on 08/13/18 09:15; Admin Dose 1,000 UNIT; Start 08/11/18 at 09:00 Cyanocobalamin (Vitamin B12) 100 mcg DAILY PO Last administered on 08/13/18 09:15; Admin Dose 100 MCG; Start 08/11/18 at 09:00 Folic Acid (Folic Acid) 1 mg DAILY PO Last administered on 08/13/18 09:22; Admin Dose 1 MG; Start 08/11/18 at 09:00 Allopurinol (Zyloprim) 100 mg DAILY PO Last administered on 08/14/18 09:18; Admin Dose 100 MG; Start 08/11/18 at 09:00 Diagnostic Test (Pha) (Accu-Chek) 1 ea 02 XX Last administered on 08/11/18at 02:00; Admin Dose 1 EA; Start 08/11/18 at 02:00 Miscellaneous Information 1 ea NOTE XX ; Start 08/10/18 at 10:30 Glucose (Glutose) 15 gm Q15M PRN PO DECREASED GLUCOSE; Start 08/10/18 at 10:30 Glucose (Glutose) 22.5 gm Q15M PRN PO DECREASED GLUCOSE; Start 08/10/18 at 10:30 Dextrose (D50w Syringe) 25 ml Q15M PRN IV DECREASED GLUCOSE; Start 08/10/18 at 10:30 Dextrose (D50w Syringe) 50 ml Q15M PRN IV DECREASED GLUCOSE; Start 08/10/18 at 10:30 Glucagon (Glucagen) 1 mg Q15M PRN IM DECREASED GLUCOSE; Start 08/10/18 at 10:30 Glucose (Glutose) 15 gm Q15M PRN BUCCAL DECREASED GLUCOSE; Start 08/10/18 at 10:30 Miscellaneous Medication (Bystolic) 5 mg DAILY PO ; Start 08/11/18 at 09:00 Insulin Glargine (Lantus) 23 units DAILY@2000 SC Last administered on 08/13/18at 20:11; Admin Dose 23 UNITS; Start 08/10/18 at 20:00 Albumin Human 100 ml @ 100 mls/hr WITH DIALYSIS PRN IV SBP less than 90 mm hg Last administered on 08/13/18at 14:22; Admin Dose 100 MLS/HR; Start 08/10/18 at 12:30 Sodium Chloride (NS) -To prime the dialy... DIRECTED FOR HD PRN IV SBP less than 90 mm hg ; Start 08/10/18 at 12:30 Heparin Sodium (Porcine) (Heparin (1000 Units/ml)) 4,000 unit AFTER DIALYSIS CATHETER Last administered on 08/13/18at 16:19; Admin Dose 4,000 UNIT; Start 08/10/18 at 12:30 Collagenase (Santyl) 1 applic DAILY TOP Last administered on 08/14/18at 08:48; Admin Dose 1 APPLIC; Start 08/11/18 at 13:00 Collagenase (Santyl) 1 applic PRN PRN TOP SOILAGE; Start 08/11/18 at 13:00 Piperacillin Sod/ Tazobactam Sod 50 ml @ 100 mls/hr Q8 IVPB Last administered on 08/14/18at 05:40; Admin Dose 100 MLS/HR; Start 08/11/18 at 15:30 Mannitol 62.5 ml @ 750 mls/hr WITH DIALYSIS PRN IV BUN more than 100 Last administered on 08/13/18at 15:26; Admin Dose 750 MLS/HR; Start 08/11/18 at 16:30 Insulin Aspart (Novolog Insulin Pen) (Adult SC Insulin - Mild Algorithm)... Q6 SC Last administered on 08/13/18at 18:30; Admin Dose 1 UNIT; Start 08/12/18 at 12:00 Morphine Sulfate (morphine) 2 mg Q4H PRN IV PAIN LEVEL 7-10 Last administered on 08/12/18at 15:08; Admin Dose 2 MG; Start 08/12/18 at 15:30 Bumetanide (Bumex) 2 mg BID DIURETICS GTB Last administered on 08/14/18at 05:40; Admin Dose 2 MG; Start 08/14/18 at 06:00 Date/Time of Note Date/Time of Note DATE: 08/14/18 TIME: 12:01 RUY WERNER MD Aug 14, 2018 12:01
--- NOTE | 2018-08-14 12:49 | NUR ---
[facility] CONF[facility] #[id number] FOR Monday08/15/2018
[2018-08-14] MEDS: LORAZEPAM 2 MG INJ IV PRN (13:07)
--- NOTE | 2018-08-14 13:15 | NUR ---
PT order received, patient in bed, max encouragement of RN and PT to arouse, patient refused PT intervention at this time. Did not provide a reason for refusal.
--- NOTE | 2018-08-14 13:19 | NUR ---
PHYSICAL THERAPY ATTEMPTED PATIENT REQUESTED PHYSICAL THERAPY MULTIPLES TIMES THIS SHIFT. RN CONTACTED DOCTOR, AND ORDER WAS PLACED. PHYSICAL THERAPIST ARRIVED. PATIENT REQUESTED THAT THEY "COME BACK LATER", THEN FELL BACK ASLEEP.
--- NOTE | 2018-08-14 14:17 | PN ---
DATE: 08/14/2018 SUBJECTIVE: The patient is alert and oriented. No complaints. OBJECTIVE: VITAL SIGNS: Stable. He is afebrile. NECK: Supple. Tracheostomy in place. LUNGS: Bilateral rhonchi. HEART: Regular rate and rhythm. ABDOMEN: Soft, nontender, nondistended. Normoactive bowel sounds. EXTREMITIES: Mild edema. ASSESSMENT: 1. A 63-year-old male with acute on chronic kidney injury, hemodialysis initiated. 2. Chronic respiratory failure, on trach vent. 3. Volume overload, resolved. 4. Chronic atrial fibrillation. 5. Diastolic congestive heart failure exacerbation. 6. Pickwickian syndrome. 7. Type 2 diabetes mellitus. 8. Hypertension. 9. Obstructive sleep apnea. 10. Gout. PLAN: 1. Proceed with Perm-A-Cath placement. 2. Hemodialysis is scheduled for morning. 3. The patient is telemetry status. 4. Discharge planning back to [facility] once outpatient hemodialysis is arranged. Dictated By: LEIF BENJAMIN MD for VÍCTOR FONTAINE/HUBERT Conf#: [id number] DID#: [id number] CC: SHANEL BHATT MD;*EndCC*
--- NOTE | 2018-08-14 14:20 | NUR ---
SPEECH THERAPY ATTEMPTED PATIENT SLEEPING, AND DOES NOT WANT TO PARTICIPATE RIGHT NOW. PATIENT STATED, "LATER". Addendum: 08/14/18 at 1508 by ANASTASIIA OZUNA RN 1433 PATIENT WOKE UP, AND REQUESTED SPEECH THERAPY. THIS RN INFORMED PATIENT THAT THE SPEECH THERAPIST HAD ALREADY LEFT THE UNIT. THIS RN CALLED SPEECH THERAPIST AND ASKED TO RETURN WHEN AVAILABLE. Addendum: 08/14/18 at 1508 by ANASTASIIA OZUNA RN SPEECH THERAPIST ARRIVED TO UNIT. PATIENT STATED HE IS READY. EVALUATION TO COMMENCE.
--- NOTE | 2018-08-14 14:55 | NUR ---
TRANSFER ATTEMPTED TO GIVE REPORT. UNIT HAS NOT YET ASSIGNED NURSE TO PATIENT/ROOM. AWAITING [employer] DESIGNER TO ASSIGN NURSES AND FOR RETURN CALL. Addendum: 08/14/18 at 1616 by ANASTASIIA OZUNA RN 1612 ATTEMPTED TO GIVE REPORT. CALLED TWICE AND NO ANSWER AT [phone]. Addendum: 08/14/18 at 1652 by ANASTASIIA OZUNA RN 1625 REPORT GIVEN TO CECILIA MURCIA RN. AWAITING TRANSPORT. Addendum: 08/14/18 at 1733 by ANASTASIIA OZUNA RN 1720 PATIENT OFF UNIT -- TRANSFERRED BY [employer] STAFF, ROBERTA. SHIFT SUMMARY Patient lethargic, but able to follow commands. Patient afebrile. Rhythm as charted. Trach collar 5L at 28%. Tube feedings re-started; no residuals noted. Two bowels movement this shift. Oliguric. Skin/wound care provided. Patient turned/repositioned Q2H per protocol. Comfort and safety measures/ fall precautions in place. Permacath (right chest) placement performed today. Monty removed with no complications. Speech therapist evaluated patient; ice chips by williamoon only at this time. Pending video evaluation. Physical therapy postponed to tomorrow since patient refused when therapist arrived. Patient updated on status, and plan of care. All of patient's needs met, and no acute distress/events. No voiced concerns.
--- NOTE | 2018-08-14 15:25 | NUR ---
EOSS;PT ARRIVED FROM ICU AT THIS TIME;AWAKE,BUT LATHARGIC;RESPONDS TO SIMPLE COMMANDS;DENIES PAIN DISTRESS;VSS;MONITOR INDICATES AFIBB 70'S;CON'T POC
--- NOTE | 2018-08-14 15:41 | NUR ---
Bedside Clinical Swallow Evaluation Completed: Brief Hx: Mr. Pat is a 63-year-old male with a history of tracheostomy, Pickwickian syndrome, hypertension, hyperlipidemia, morbid obesity, chronic renal insufficiency, who was admitted with increased chest pressure, and decreased urine output. On arrival was awake, alert, reports chills and subjective fevers and lower abdominal pain. Normal lactic acid and CBC on admission, however evidence of worsening renal failure. PMHX: Chronic atrial fibrillation, diastolic heart failure, hypertension, hyperlipidemia, tracheostomy with pickwickian syndrome, morbid obesity. Chest XR completed on 08/13/2018: IMPRESSION: Findings suggestive of pulmonary vascular congestion with small right pleural effusion. Right basilar interstitial opacities may reflect atelectasis or pneumonia, increased when compared to the prior examination. Mild cardiomegaly. Current Nutrition: PEG tube-60ml/hr. pt reported he was consuming food/liquids at [facility], but facility reported that the pt was NPO with PEG tube feeds only. Vitals: temp: 97.5; RR: 17-29; SPO2: 97% on trach collar (size 8 XLT) and trach mask/shield (5liters/min), with cuff deflated and PMV in place, Fio2: 28% Labs: WBC: 10.0; Hgb/Hct: 7.4L/25.5L; Cr level: 4.62 and BUN: 83H (renal failure); Urine Total P: 2+H Subjective assessment of cognition specific to swallow safety: Awake, alert, oriented to self and year, but unaware of his situation and place (stating he was at [facility]), and able to follow simple commands with prompting to maintain attention due to drowsiness noted inconsistently during the session. Oral mechanism examination completed: Face was symmetrical, lips were asymmetrical with reduction noted during retraction on the pts left side, tongue and palate were symmetrical with 3+/5 tongue strength, upper/lower dentition noted. P.O trials consisting of the following: ice chips x4, thin liquids by teaspoon x 2, dime-sized jello x 2 and 1/2 teaspoon of puree x 4. Oral phase of swallow: Reduced oral motor strength and coordination. Slow but adequate bolus manipulation and mastication. No anterior oral leakage or residue in the oral cavity after the swallow. Mild delay in anterior to posterior transit. Reduced oral control resulting in suspected premature loss into the hypopharynx before initiation of the swallow. Pharyngeal phase of swallow: Mildly delayed trigger of swallow. Suspect mild residue in the pharyngeal cavity after the initial swallow but cleared with liquid wash. Suspected other pharyngeal deficits include: pharyngeal stasis and posterior pharyngeal constrictor weakness. No overt s/s of aspiration or penetration as appreciated via auscultation. No chocolate colored pudding was noted in the suctioning following the 4 trials. Vocal quality remained clear and strong across all trials. Mildly reduced coordination of breath w/ swallow safety s/p trach. Cannot r/o silent aspiration s/p trach. Impression: oropharyngeal dysphagia, which is associated with the reduced oropharyngeal strength/coordination, and reduced coordination of breath w/ swallow safety. Based on the initial bedside swallow evaluation, pt may be safe to initiate a diet once an objective swallow study is completed inorder to r/o aspiration. Recommendation: 1. Initiate dysphagia therapy 3-5x per week for 1-2 weeks 2. Continue PEG tube feeds and allow single ice chips, one at a time after strict oral care 3. Anticipate need for Video Swallow Study with Speech Therapist inorder to objectively assess swallow function prior to initiation of p.o intake. 4. Provide frequent oral care and hygiene management.
--- NOTE | 2018-08-14 15:56 | NUR ---
CM NOTES: RECEIVED ORDER FOR ARRANGEMENTS OF RENAL OF PRATIBHA VALDOVINOS [phone]. PT HAS SCAN HMO WITH [facility]. THIS CM S/W ASSIGNED BERNABE DOTY MISAEL [phone] ABOUT THE ORDER. SHE ASKED ASSISTANCE WITH HD RUNS. THIS CM FAXED HD RUNS TO HER ALREADY. PER BERNABE DOUGLAS, PT REFUSED TO BE PLACED BACK TO [facility] [place]. WITH HIS WEIGHT, PLUS TRACH TO VENT WITH HD WILL BE CONSIDERED COMPLEX DC. THIS CM AGREED WITH HER. ASSIGNED REGRUT KELLEY LALITHA MISAEL WILL CONTINUE WORKING ON SUBACUTE ACUTE PLACEMENT WITH HD. PT HAS SCAN HMO AND IT IS CONSIDERED MEDICARE HMO AND WILL NEED AN IMPORTANT MEDICARE MESSAGE PRIOR TO THE DC. FOR ANY DC PLANNING NEEDS AND ARRANGEMENT, PLEASE CALL BERNABE DOUGLAS DIRECTLY [phone]. NASIM KWONG CM [id number] Addendum: 08/14/18 at 1604 by NASIM DOMINGUEZ CM Amended: Links added.
[2018-08-14] MEDS: INSULIN GLARGINE [LANTus] (100 UNITS/ML) SYG SC SCH (20:00)
[2018-08-14] MEDS: morphine 4 MG/ML VIAL IV PRN (21:12)
[2018-08-15] VITALS (26 sets, daily range): BP systolic 89–124; BP diastolic 51–69; PULSE 71–93; RESP 18–21
[2018-08-15] MEDS: LORAZEPAM 2 MG INJ IV PRN ×2 (00:09→23:45)
[2018-08-15] MEDS: INSULIN GLARGINE [LANTus] (100 UNITS/ML) SYG SC SCH ×2 (00:31→21:35)
[2018-08-15] MEDS: ACCU-CHEK XX SCH (02:00)
--- NOTE | 2018-08-15 05:04 | NUR ---
END OF SHIFT REPORT RECEIVED PATIENT CONFUSED SAYING "GET ME READY FOR WORK. I NEED TO BE AT THE OFFICE TOMORROW'. DOESN'T KNOW WHERE HE IS. THINKS HE IS AT HIS HOME. SINUS ON THE MONITOR. NOT IN DISTRESS PATIENT KEPT PULLING AT HIS GT TUBE, HIS TRACH, AND HIS TELE LEADS. HE ALSO PULLED THE TUBE FEEDING, IV POLE ALMOST FALLING ON HIM. ORDER RECEIVED FORM DR. BHATT AT [phone] TO PUT HIM ON SOFT WRIST RESTRAINT. Addendum: 08/15/18 at 0510 by KECIA QUINTEROS RN PATIENT SCHEDULED FOR DIALYSIS TODAY. Addendum: 08/15/18 at 0706 by KECIA QUINTEROS RN PT AFIB, CONTROLLED (NOT SINUS RHYTHM INITIALLY REPORTED). IN THE S.
[2018-08-15] MEDS: Insulin NOVOLOG SS MILD Algorithm (NPO/TPN/ENTERAL FEEDS) SC SCH ×3 (06:00→18:00)
[2018-08-15] MEDS: PIPER-TAZO 2.25 GM (PMX) 50 ML IVPB SCH ×3 (06:21→21:19)
[2018-08-15] MEDS: BUMETANIDE 1 MG TAB GTB SCH ×2 (06:22→18:01)
--- NOTE | 2018-08-15 07:51 | NUR ---
RESTRAINTS Called Dr. Niño and left a message informing the patient was place on restraints with a new order placed. Patient confused and attempting to pull on lines and tubes. Restraint interventions, outcomes, care planes, and vitals taken. Will continue to monitor.
--- NOTE | 2018-08-15 08:19 | CONS ---
Assessment/Plan Assessment/Plan Assessment/Plan 1. acute Fluid overload with worsening renal failure, Oliguric to anuric- progressed to ESRD - started on HD on 08/11/18 2. Acute Uremia with BUN 223 on admission 3. SHAILA on CKD IV due to ATN 4. acute on chronic hypoxemix respiratory failure currenlty back on Vent, S/p tracheostomy 5. Anemia of ESRD 6. Hyperuricemia 7. Morbid to severe obesity 8. Pickwickian syndrome Plan: HD initiated on 08/11/18 -s/p Permacath placement on 08/13/18- s/p HD today 2.5 L removed, if permacath works good then plan is to d/c Monty Hd catheter Allopurinol 100mg po daily Bumex 2mg po BID appreciate help from Dr. Pineda- Due to pt body habitus it was very difficult vascular access will follow up Result Diagram: 08/14/182 08/14/18 0442 Results 24hrs Laboratory Tests Test 08/14/18 11:58 08/14/18 17:36 08/14/18 23:45 08/15/18 06:28 Bedside Glucose 94 127 118 152 Consultation Date/Type/Reason Admit Date/Time Aug 10, 2018 at 05:03 Initial Consult Date 08/10/18 Type of Consult NEPHROLOGY Requesting Provider: EJ GRADY 24 HR Interval Summary Free Text/Dictation s/p Hd today 2.5 L removed, afebrile, Bp stable Exam/Review of Systems Vital Signs Vitals Vital Signs Date Temp Pulse Resp B/P (MAP) Pulse Ox O2 O2 Flow FiO2 Time Delivery Rate 08/15/18 97.7 73 20 104/65 95 07:35 (78) 08/15/18 5.0 26 05:17 08/14/18 Trach 17:00 Collar Intake and Output 08/14/18 08/14/18 08/15/18 1515:00 23:00 07:00 IntakeIntake Total 260 ml 120 ml OutputOutput Total 35 ml 10 ml BalanceBalance 225 ml 110 ml Exam Constitutional: alert, awake, morbidly obese, ENMT: other (Status post tracheostomy) Respiratory: diminished breath sounds (Bilaterally, patient with congestion.) Cardiovascular: irregular rhythm (Controlled atrial fibrillation) Gastrointestinal: soft, non-tender, morbidly obese, + harp catheter in place Musculoskeletal: Diffuse anasarca Extremities: normal pulses, other (Anasarca) Neurological: COMMONWEALTH ATTORNEY II-XII intact, nl mental status, Medications Medications Current Medications IV Flush (NS 3 ml) 3 ml PER PROTOCOL IV ; Start 08/10/18 at 09:30 Lorazepam (Ativan) 0.5 mg Q6H PRN IV ANXIETY Last administered on 08/15/18 00:09; Admin Dose 0.5 MG; Start 08/10/18 at 09:30 Ondansetron HCl (Zofran Inj) 4 mg Q6H PRN IV NAUSEA AND/OR VOMITING; Start 08/10/18 at 09:30 Acetaminophen (Tylenol Tab) 650 mg Q6H PRN PO PAIN LEVEL 1-3 OR FEVER; Start 08/10/18 at 09:30 Bisacodyl (Dulcolax Supp) 10 mg DAILY PRN CO CONSTIPATION; Start 08/10/18 at 09:30 Famotidine (Pepcid Iv) 20 mg DAILY IV Last administered on 08/14/18at 08:47; Admin Dose 20 MG; Start 08/10/18 at 09:30 Heparin Sodium (Porcine) (Heparin (5000 Units/1ml)) 5,000 unit Q12 SC ; Start 08/10/18 at 21:00; Status Hold Amiodarone HCl (Cordarone) 200 mg DAILY PO Last administered on 08/14/18 09:18; Admin Dose 200 MG; Start 08/11/18 at 09:00 Cholecalciferol (Vitamin D) 1,000 unit DAILY PO Last administered on 08/13/18 09:15; Admin Dose 1,000 UNIT; Start 08/11/18 at 09:00 Cyanocobalamin (Vitamin B12) 100 mcg DAILY PO Last administered on 08/13/18 09:15; Admin Dose 100 MCG; Start 08/11/18 at 09:00 Folic Acid (Folic Acid) 1 mg DAILY PO Last administered on 08/13/18 09:22; Admin Dose 1 MG; Start 08/11/18 at 09:00 Allopurinol (Zyloprim) 100 mg DAILY PO Last administered on 08/14/18 09:18; Admin Dose 100 MG; Start 08/11/18 at 09:00 Diagnostic Test (Pha) (Accu-Chek) 1 ea 02 XX Last administered on 08/11/18at 02:00; Admin Dose 1 EA; Start 08/11/18 at 02:00 Miscellaneous Information 1 ea NOTE XX ; Start 08/10/18 at 10:30 Glucose (Glutose) 15 gm Q15M PRN PO DECREASED GLUCOSE; Start 08/10/18 at 10:30 Glucose (Glutose) 22.5 gm Q15M PRN PO DECREASED GLUCOSE; Start 08/10/18 at 10:30 Dextrose (D50w Syringe) 25 ml Q15M PRN IV DECREASED GLUCOSE; Start 08/10/18 at 10:30 Dextrose (D50w Syringe) 50 ml Q15M PRN IV DECREASED GLUCOSE; Start 08/10/18 at 10:30 Glucagon (Glucagen) 1 mg Q15M PRN IM DECREASED GLUCOSE; Start 08/10/18 at 10:30 Glucose (Glutose) 15 gm Q15M PRN BUCCAL DECREASED GLUCOSE; Start 08/10/18 at 10:30 Miscellaneous Medication (Bystolic) 5 mg DAILY PO ; Start 08/11/18 at 09:00 Insulin Glargine (Lantus) 23 units DAILY@2000 SC Last administered on 08/15/18at 00:31; Admin Dose 23 UNITS; Start 08/10/18 at 20:00 Albumin Human 100 ml @ 100 mls/hr WITH DIALYSIS PRN IV SBP less than 90 mm hg Last administered on 08/13/18at 14:22; Admin Dose 100 MLS/HR; Start 08/10/18 at 12:30 Sodium Chloride (NS) -To prime the dialy... DIRECTED FOR HD PRN IV SBP less than 90 mm hg ; Start 08/10/18 at 12:30 Heparin Sodium (Porcine) (Heparin (1000 Units/ml)) 4,000 unit AFTER DIALYSIS CATHETER Last administered on 08/13/18at 16:19; Admin Dose 4,000 UNIT; Start 08/10/18 at 12:30 Collagenase (Santyl) 1 applic DAILY TOP Last administered on 08/14/18at 22:08; Admin Dose 1 APPLIC; Start 08/11/18 at 13:00 Collagenase (Santyl) 1 applic PRN PRN TOP SOILAGE; Start 08/11/18 at 13:00 Piperacillin Sod/ Tazobactam Sod 50 ml @ 100 mls/hr Q8 IVPB Last administered on 08/15/18at 06:21; Admin Dose 100 MLS/HR; Start 08/11/18 at 15:30 Mannitol 62.5 ml @ 750 mls/hr WITH DIALYSIS PRN IV BUN more than 100 Last administered on 08/13/18at 15:26; Admin Dose 750 MLS/HR; Start 08/11/18 at 16:30 Insulin Aspart (Novolog Insulin Pen) (Adult SC Insulin - Mild Algorithm)... Q6 SC Last administered on 08/13/18at 18:30; Admin Dose 1 UNIT; Start 08/12/18 at 12:00 Morphine Sulfate (morphine) 2 mg Q4H PRN IV PAIN LEVEL 7-10 Last administered on 08/14/18at 21:12; Admin Dose 2 MG; Start 08/12/18 at 15:30 Bumetanide (Bumex) 2 mg BID DIURETICS GTB Last administered on 08/15/18at 06:22; Admin Dose 2 MG; Start 08/14/18 at 06:00 Date/Time of Note Date/Time of Note DATE: 08/15/18 TIME: 08:19 RUY WERNER MD Aug 15, 2018 08:19
[2018-08-15] MEDS: NEBIVOLOL 5 MG TAB PO SCH (09:00)
--- NOTE | 2018-08-15 09:15 | NUR ---
PT EVALUATION NOTE: Patient is a 63 year old male admitted to [facility] after presenting to the ER on 08/10/17 because of acute nasal and chest congestion for the last 2 weeks, complains of substernal chest discomfort for the last 2-3 days. PMH: Chronic respite failure, dysphagia, history of CHF, atrial fibrillation, aortic stenosis, CAD, diabetes mellitus, tracheostomy connected to a 2 L, G-tube, morbid obesity PRECAUTIONS: fall risk, low Hgb, B wrist restraints PLOF: Patient lives in a SNF. Patient states that he was able to ambulate independently with one crutch however patient is unreliable historian. CLOF: Fercho RN cleared patient for PT evaluation. Patient agreeable to participate with PT evaluation, c/o pain "all over". Received patient in semi-Chopra's position, tracheostomy on supplemental O2, G-tube, bilateral wrist restraints. VS as follows: BP 105/66, HR 81, O2 sat 94%. Patient educated in safety awareness, fall prevention and purpose of PT evaluation. Patient required max assist of 2 people to come to sitting position at the EOB with the HOB elevated. Patient able to tolerate sitting 5 minutes at the EOB with the HOB elevated for support and physical assist of one person. Patient returned to bed with max assist of 2, repositioned for comfort with assist of 3 people, call light within reach, bed alarm reset. Fercho present in room, notified of patient's status at the end of the session. Fercho to replace bilateral wrist restraints. PT RECOMMENDATIONS: Patient will benefit from skilled inpatient PT intervention to address strength, balance, safety and functional mobility. Recommend discharge to SNF once cleared by .
[2018-08-15] MEDS: FAMOTIDINE 20 MG INJ IV SCH (09:39)
[2018-08-15] MEDS: CYANOCOBALAMIN 100 MCG TAB PO SCH (09:39)
[2018-08-15] MEDS: CHOLECALCIFEROL 1,000 UNIT TAB PO SCH (09:39)
[2018-08-15] MEDS: AMIODARONE 200 MG TAB PO SCH (09:39)
[2018-08-15] MEDS: COLLAGENASE 5 GM (UD JAR) TOP SCH (09:39)
[2018-08-15] MEDS: FOLIC ACID 1 MG TAB PO SCH (09:39)
[2018-08-15] MEDS: ALLOPURINOL 100 MG TAB PO SCH (09:39)
--- NOTE | 2018-08-15 11:08 | CONS ---
Assessment/Plan Assessment/Plan Assessment/Plan Assessment recommendations; 1. patient with history of chronic respiratory failure maintained on T-piece a dmitted for sepsis likely due to right lower lobe pneumonia with significant clinical improvement. 2. Renal failure, now requiring hemodialysis. Status post tunneled catheter placement yesterday. 3. History of chronic atrial fibrillation. 4. Diabetes. Continue current supportive care. Hemodialysis per old coin dealer. Result Diagram: 08/14/18 0442 08/14/18 0442 Results 24hrs Laboratory Tests Test 08/14/18 11:58 08/14/18 17:36 08/14/18 23:45 08/15/18 06:28 Bedside Glucose 94 127 118 152 Consultation Date/Type/Reason Admit Date/Time Aug 10, 2018 at 05:03 Initial Consult Date 08/10/18 Type of Consult Pulmonary/critical care Requesting Provider: EJ GRADY 24 HR Interval Summary Free Text/Dictation Patient's condition is stable. Has been transferred out of ICU to telemetry unit. General exam; elderly male, on T-piece via tracheostomy. Currently no distress. Able to talk Via Passy-Jackson valve. Exam/Review of Systems Vital Signs Vitals Vital Signs Date Temp Pulse Resp B/P (MAP) Pulse Ox O2 O2 Flow FiO2 Time Delivery Rate 08/15/18 86 08:31 08/15/18 97.7 20 104/65 95 07:35 (78) 08/15/18 5.0 26 05:17 08/14/18 Trach 17:00 Collar Intake and Output 08/14/18 08/14/18 08/15/18 1515:00 23:00 07:00 IntakeIntake Total 260 ml 120 ml OutputOutput Total 35 ml 10 ml BalanceBalance 225 ml 110 ml Exam HEENT exam; supple neck, JVD difficult to see because of short neck. No neck masses. No thyromegaly. Tracheostomy in place. Insertion site is clean. Chest exam; clear to auscultation. S1-S2 audible, no murmurs. Irregular rhythm. Abdomen exam; soft, no organomegaly. Protuberant. Bowel sounds audible. Extremity exam; trace edema. COUNSELING PROGRAM LEADER exam; no focal deficit. Medications Medications Current Medications IV Flush (NS 3 ml) 3 ml PER PROTOCOL IV ; Start 08/10/18 at 09:30 Lorazepam (Ativan) 0.5 mg Q6H PRN IV ANXIETY Last administered on 08/15/18 00:09; Admin Dose 0.5 MG; Start 08/10/18 at 09:30 Ondansetron HCl (Zofran Inj) 4 mg Q6H PRN IV NAUSEA AND/OR VOMITING; Start 08/10/18 at 09:30 Acetaminophen (Tylenol Tab) 650 mg Q6H PRN PO PAIN LEVEL 1-3 OR FEVER; Start 08/10/18 at 09:30 Bisacodyl (Dulcolax Supp) 10 mg DAILY PRN OR CONSTIPATION; Start 08/10/18 at 09:30 Famotidine (Pepcid Iv) 20 mg DAILY IV Last administered on 08/15/18 09:39; Admin Dose 20 MG; Start 08/10/18 at 09:30 Heparin Sodium (Porcine) (Heparin (5000 Units/1ml)) 5,000 unit Q12 SC ; Start 08/10/18 at 21:00; Status Hold Amiodarone HCl (Cordarone) 200 mg DAILY PO Last administered on 08/15/18 09:39; Admin Dose 200 MG; Start 08/11/18 at 09:00 Cholecalciferol (Vitamin D) 1,000 unit DAILY PO Last administered on 08/15/18 09:39; Admin Dose 1,000 UNIT; Start 08/11/18 at 09:00 Cyanocobalamin (Vitamin B12) 100 mcg DAILY PO Last administered on 08/15/18 09:39; Admin Dose 100 MCG; Start 08/11/18 at 09:00 Folic Acid (Folic Acid) 1 mg DAILY PO Last administered on 08/15/18 09:39; Admin Dose 1 MG; Start 08/11/18 at 09:00 Allopurinol (Zyloprim) 100 mg DAILY PO Last administered on 08/15/18 09:39; Admin Dose 100 MG; Start 08/11/18 at 09:00 Diagnostic Test (Pha) (Accu-Chek) 1 ea 02 XX Last administered on 08/11/18 02:00; Admin Dose 1 EA; Start 08/11/18 at 02:00 Miscellaneous Information 1 ea NOTE XX ; Start 08/10/18 at 10:30 Glucose (Glutose) 15 gm Q15M PRN PO DECREASED GLUCOSE; Start 08/10/18 at 10:30 Glucose (Glutose) 22.5 gm Q15M PRN PO DECREASED GLUCOSE; Start 08/10/18 at 10:30 Dextrose (D50w Syringe) 25 ml Q15M PRN IV DECREASED GLUCOSE; Start 08/10/18 at 10:30 Dextrose (D50w Syringe) 50 ml Q15M PRN IV DECREASED GLUCOSE; Start 08/10/18 at 10:30 Glucagon (Glucagen) 1 mg Q15M PRN IM DECREASED GLUCOSE; Start 08/10/18 at 10:30 Glucose (Glutose) 15 gm Q15M PRN BUCCAL DECREASED GLUCOSE; Start 08/10/18 at 10:30 Miscellaneous Medication (Bystolic) 5 mg DAILY PO ; Start 08/11/18 at 09:00 Insulin Glargine (Lantus) 23 units DAILY@2000 SC Last administered on 08/15/18at 00:31; Admin Dose 23 UNITS; Start 08/10/18 at 20:00 Albumin Human 100 ml @ 100 mls/hr WITH DIALYSIS PRN IV SBP less than 90 mm hg Last administered on 08/13/18at 14:22; Admin Dose 100 MLS/HR; Start 08/10/18 at 12:30 Sodium Chloride (NS) -To prime the dialy... DIRECTED FOR HD PRN IV SBP less than 90 mm hg ; Start 08/10/18 at 12:30 Heparin Sodium (Porcine) (Heparin (1000 Units/ml)) 4,000 unit AFTER DIALYSIS CATHETER Last administered on 08/13/18at 16:19; Admin Dose 4,000 UNIT; Start 08/10/18 at 12:30 Collagenase (Santyl) 1 applic DAILY TOP Last administered on 08/15/18at 09:39; Admin Dose 1 APPLIC; Start 08/11/18 at 13:00 Collagenase (Santyl) 1 applic PRN PRN TOP SOILAGE; Start 08/11/18 at 13:00 Piperacillin Sod/ Tazobactam Sod 50 ml @ 100 mls/hr Q8 IVPB Last administered on 08/15/18at 06:21; Admin Dose 100 MLS/HR; Start 08/11/18 at 15:30 Mannitol 62.5 ml @ 750 mls/hr WITH DIALYSIS PRN IV BUN more than 100 Last administered on 08/13/18at 15:26; Admin Dose 750 MLS/HR; Start 08/11/18 at 16:30 Insulin Aspart (Novolog Insulin Pen) (Adult SC Insulin - Mild Algorithm)... Q6 SC Last administered on 08/13/18at 18:30; Admin Dose 1 UNIT; Start 08/12/18 at 12:00 Morphine Sulfate (morphine) 2 mg Q4H PRN IV PAIN LEVEL 7-10 Last administered on 08/14/18at 21:12; Admin Dose 2 MG; Start 08/12/18 at 15:30 Bumetanide (Bumex) 2 mg BID DIURETICS GTB Last administered on 08/15/18at 06:22; Admin Dose 2 MG; Start 08/14/18 at 06:00 Date/Time of Note Date/Time of Note DATE: 08/15/18 TIME: 11:06 ARMOND PAUL Aug 15, 2018 11:08
[2018-08-15] MEDS ORDERED: QUET25TA33 PO (11:19)
[2018-08-15] MEDS ORDERED: ALLO100T PO (11:19)
[2018-08-15] MEDS ORDERED: APIX5TAB PO (11:19)
[2018-08-15] MEDS ORDERED: BARIUM SULFATE 135 ML (E-Z HD) PO ONE (11:34)
--- NOTE | 2018-08-15 13:21 | PN ---
DATE: 08/15/2018 SUBJECTIVE: The patient is alert and oriented. Soft restraints were required above since he was helena tated and confused earlier. He denies any complaint. OBJECTIVE: VITAL SIGNS: Stable. He is afebrile. NECK: Trach collar in place. LUNGS: Clear to auscultation bilaterally. CARDIAC: Regular rate and rhythm. ABDOMEN: Soft, normoactive bowel sounds. EXTREMITIES: No clubbing, cyanosis or edema. ASSESSMENT: 1. Acute on chronic kidney failure requiring initiation of hemodialysis. 2. Chronic respiratory failure, on treatment. 3. Volume overload, resolved. 4. Diastolic congestive heart failure. 5. Chronic atrial fibrillation. 6. Pickwickian syndrome. 7. Obstructive sleep apnea. 8. Type 2 diabetes mellitus. 9. Hypertension. 10. Gout. 11. Altered mental status, resolved. 12. Status post PermCath placement. PLAN: 1. Continue hemodialysis as inpatient. Arrange outpatient dialysis at [facility] prior to discharge. 2. Discharge planning to [facility]. 3. Case was discussed with Dr. Yon Guadarrama. 4. The plan of care was discussed with the patient. Dictated By: LEIF BENJAMIN MD SK/NTS Conf#: [id number] DID#: [id number] CC: RITCHIE MADDOX MD; SHANEL BHATT MD;*[facility]*
--- NOTE | 2018-08-15 14:33 | NUR ---
MBS completed: Summary: Pt is presenting with mild-moderate oropharyngeal dysphagia characterized by red. bolus control, reduced hyolaryngeal excursion and reduced airway closure. Will initiate pureed diet as pt has been NPO with tube feedings for some time and was not tested with an entire meal to observe for endurance. To complete trial tray of soft solids prior to diet upgrade with ST. Notified RN. Recommendations: Pureed solids/ thin liquids small sips Meds crushed in puree Maintain aspiration precautions and oral care guidelines ST to f/u Trials: NTL by spoon, cup and straw, pureed solids, soft solids, regular solids, thin liquids via spoon, cup and straw, thin liquids via straw with effortful swallow Oral phase: Some difficulty removing liquids from cup, possibly impacted by positioning/ shape of cup. Increased time for mastication and bolus preparation with solids. Mild red. bolus control within the oral cavity, resulting in mild premature spillage to pharynx. Mild oral residue after the swallow. Pt independently initiates repeat swallow to clear. Pharyngeal phase: Mild delayed initiation of the swallow. Reduced hyolaryngeal excursion and airway closure. Deep penetration to the level of the vocal folds with NTL and thin liquids by straw. Cannot r/o aspiration of penetrated materials. With use of effortful swallow with small sip thin liquid by straw, only transient penetration noted. No other penetration/ aspiration noted with other consistencies.
[2018-08-15] MEDS ORDERED: HEPARIN 1000 UNITS/ML 10 ML INJ ONE (17:07)
[2018-08-15] MEDS: HEPARIN 1000 UNITS/ML 10 ML INJ CATHETER SCH (18:21)
--- NOTE | 2018-08-15 19:03 | NUR ---
EOSS A&Ox3-4 with periods of confusion. Yoruba speaking. Diagnosis sepsis, acute kidney injury. Obese. Trach to mist FIO2 28%. Gtube Replete feeding 60cc/hr. Patient downgraded to Med Surg. Restraints removed this morning per Dr. Niño. Patient attempting to pull on lines and tubes previous shift. Discharge orders for SNF. Severiano case assembler searching for facility. Dialysis done. 2.5 L out. Video swallow done in the morning. Low air mattress ordered. No signs of pain or respiratory distress. Bed brakes on, side rails up, call light within reach. Stable vital signs. Will endorse to international marketing manager.
[2018-08-15] MEDS: QUETIAPINE 25 MG TAB PO SCH (21:20)
[2018-08-16] VITALS (13 sets, daily range): BP systolic 90–118; BP diastolic 52–72; PULSE 57–98; RESP 16–22
[2018-08-16] MEDS: ACCU-CHEK XX SCH (02:00)
--- NOTE | 2018-08-16 02:30 | NUR ---
Left message to Dr. Stovall, regarding patient's status. Patient is pulling out lines,tubes and trying to get out of bed. Will wait for call back.
--- NOTE | 2018-08-16 03:00 | NUR ---
Received new order, apply soft wrist restraints on patient. Order noted and carried out.
[2018-08-16] MEDS: BUMETANIDE 1 MG TAB GTB SCH ×2 (05:22→17:38)
[2018-08-16] MEDS: LORAZEPAM 2 MG INJ IV PRN (05:23)
[2018-08-16] MEDS: PIPER-TAZO 2.25 GM (PMX) 50 ML IVPB SCH ×3 (05:23→21:43)
[2018-08-16] MEDS: Insulin NOVOLOG SS MILD Algorithm (NPO/TPN/ENTERAL FEEDS) SC SCH ×4 (05:23→17:45)
--- NOTE | 2018-08-16 06:56 | NUR ---
All needs attended and met. Patient has been restless most of the shift. Patient was put on soft wrist restraints upon exhausting all othewr Addendum: 08/16/18 at 0703 by KEVIN POPE RN continuation: other options. Patient was naked, pulling out the IV, g-tube and trach. [id number] at bedside. Patient was given ativan earlier but did not work. Patient had 3 BM the whole shift. Kept patient clean and comfortable. Restraint protocol initiated.
[2018-08-16] MEDS: NEBIVOLOL 5 MG TAB PO SCH (09:00)
[2018-08-16] MEDS: COLLAGENASE 5 GM (UD JAR) TOP SCH (09:25)
[2018-08-16] MEDS: FAMOTIDINE 20 MG INJ IV SCH (09:26)
[2018-08-16] MEDS: AMIODARONE 200 MG TAB PO SCH (09:26)
[2018-08-16] MEDS: CHOLECALCIFEROL 1,000 UNIT TAB PO SCH (09:26)
[2018-08-16] MEDS: CYANOCOBALAMIN 100 MCG TAB PO SCH (09:26)
[2018-08-16] MEDS: ALLOPURINOL 100 MG TAB PO SCH (09:26)
[2018-08-16] MEDS: FOLIC ACID 1 MG TAB PO SCH (09:26)
--- NOTE | 2018-08-16 10:50 | CONS ---
Date/Time of Note Date/Time of Note DATE: 08/16/18 TIME: 10:49 Consult Date/Type/Reason Admit Date/Time Aug 10, 2018 at 05:03 Initial Consult Date 08/10/18 Type of Consultation: Pulm/CCM Requesting Provider: EJ GRADY Subjective Patient stable this morning. No new events. Objective Vital Signs Date Temp Pulse Resp B/P (MAP) Pulse Ox O2 O2 Flow FiO2 Time Delivery Rate 08/16/18 98.7 97 20 90/52 (65) 96 10:00 08/16/18 Aerosol 5.0 09:20 Mask 08/15/18 28 20:06 Intake and Output 08/15/18 08/15/18 08/16/18 1515:00 23:00 07:00 IntakeIntake Total 680 ml 30 ml OutputOutput Total 3000 ml BalanceBalance -2320 ml 30 ml Exam GENERAL: Moderately obese gentleman on trach collar is comfortable VITAL SIGNS: per chart NECK: Supple. No JVD or lymphadenopathy. CARDIAC EXAM: S1, S2. No added sounds or murmurs. CHEST: clear bilaterally, No added sounds, rales or wheezes ABDOMEN: Soft, nontender. No guarding or rebound. EXTREMITIES: No cyanosis, clubbing or edema. NEUROLOGIC: Generalized weakness. No focal deficits. Results/Medications Result Diagram: 08/14/1844108/14/18441 Results 24 hrs Laboratory Tests Test 08/15/18 12:38 08/15/18 17:57 08/15/18 21:19 08/16/18 05:13 Bedside Glucose 152 130 135 127 Medications Current Medications IV Flush (NS 3 ml) 3 ml PER PROTOCOL IV ; Start 08/10/18 at 09:30 Lorazepam (Ativan) 0.5 mg Q6H PRN IV ANXIETY Last administered on 08/16/18at 05:23; Admin Dose 0.5 MG; Start 08/10/18 at 09:30 Ondansetron HCl (Zofran Inj) 4 mg Q6H PRN IV NAUSEA AND/OR VOMITING; Start 08/10/18 at 09:30 Acetaminophen (Tylenol Tab) 650 mg Q6H PRN PO PAIN LEVEL 1-3 OR FEVER; Start 08/10/18 at 09:30 Bisacodyl (Dulcolax Supp) [address] CONSTIPATION; Start 08/10/18 at 09:30 Famotidine (Pepcid Iv) 20 mg DAILY IV Last administered on 08/16/18 09:26; Admin Dose 20 MG; Start 08/10/18 at 09:30 Heparin Sodium (Porcine) (Heparin (5000 Units/1ml)) 5,000 unit Q12 SC ; Start 08/10/18 at 21:00; Status Hold Amiodarone HCl (Cordarone) 200 mg DAILY PO Last administered on 08/16/18:; Admin Dose 200 MG; Start 08/11/18 at 09:00 Cholecalciferol (Vitamin D) 1,000 unit DAILY PO Last administered on 08/16/18:; Admin Dose 1,000 UNIT; Start 08/11/18 at 09:00 Cyanocobalamin (Vitamin B12) 100 mcg DAILY PO Last administered on 08/16/18:; Admin Dose 100 MCG; Start 08/11/18 at 09:00 Folic Acid (Folic Acid) 1 mg DAILY PO Last administered on 08/16/18:; Admin Dose 1 MG; Start 08/11/18 at 09:00 Allopurinol (Zyloprim) 100 mg DAILY PO Last administered on 08/16/18:; Admin Dose 100 MG; Start 08/11/18 at 09:00 Diagnostic Test (Pha) (Accu-Chek) 1 ea 02 XX Last administered on 08/11/18 02:00; Admin Dose 1 EA; Start 08/11/18 at 02:00 Miscellaneous Information 1 ea NOTE XX ; Start 08/10/18 at 10:30 Glucose (Glutose) 15 gm Q15M PRN PO DECREASED GLUCOSE; Start 08/10/18 at 10:30 Glucose (Glutose) 22.5 gm Q15M PRN PO DECREASED GLUCOSE; Start 08/10/18 at 10:30 Dextrose (D50w Syringe) 25 ml Q15M PRN IV DECREASED GLUCOSE; Start 08/10/18 at 10:30 Dextrose (D50w Syringe) 50 ml Q15M PRN IV DECREASED GLUCOSE; Start 08/10/18 at 10:30 Glucagon (Glucagen) 1 mg Q15M PRN IM DECREASED GLUCOSE; Start 08/10/18 at 10:30 Glucose (Glutose) 15 gm Q15M PRN BUCCAL DECREASED GLUCOSE; Start 08/10/18 at 10:30 Miscellaneous Medication (Bystolic) 5 mg DAILY PO ; Start 08/11/18 at 09:00 Insulin Glargine (Lantus) 23 units DAILY@2000 SC Last administered on 08/15/18 21:35; Admin Dose 23 UNITS; Start 08/10/18 at 20:00 Albumin Human 100 ml @ 100 mls/hr WITH DIALYSIS PRN IV SBP less than 90 mm hg Last administered on 08/13/18at 14:22; Admin Dose 100 MLS/HR; Start 08/10/18 at 12:30 Sodium Chloride (NS) -To prime the dialy... DIRECTED FOR HD PRN IV SBP less than 90 mm hg ; Start 08/10/18 at 12:30 Heparin Sodium (Porcine) (Heparin (1000 Units/ml)) 4,000 unit AFTER DIALYSIS CATHETER Last administered on 08/15/18at 18:21; Admin Dose 4,000 UNIT; Start 08/10/18 at 12:30 Collagenase (Santyl) 1 applic DAILY TOP Last administered on 08/16/18 09:25; Admin Dose 1 APPLIC; Start 08/11/18 at 13:00 Collagenase (Santyl) 1 applic PRN PRN TOP SOILAGE; Start 08/11/18 at 13:00 Piperacillin Sod/ Tazobactam Sod 50 ml @ 100 mls/hr Q8 IVPB Last administered on 08/16/18 05:23; Admin Dose 100 MLS/HR; Start 08/11/18 at 15:30 Mannitol 62.5 ml @ 750 mls/hr WITH DIALYSIS PRN IV BUN more than 100 Last administered on 08/13/18at 15:26; Admin Dose 750 MLS/HR; Start 08/11/18 at 16:30 Insulin Aspart (Novolog Insulin Pen) (Adult SC Insulin - Mild Algorithm)... Q6 SC Last administered on 08/15/18 12:50; Admin Dose 1 UNIT; Start 08/12/18 at 12:00 Morphine Sulfate (morphine) 2 mg Q4H PRN IV PAIN LEVEL 7-10 Last administered on 08/14/18at 21:12; Admin Dose 2 MG; Start 08/12/18 at 15:30 Bumetanide (Bumex) 2 mg BID DIURETICS GTB Last administered on 08/16/18at 05:22; Admin Dose 2 MG; Start 08/14/18 at 06:00 Quetiapine Fumarate (Seroquel) 50 mg HS PO Last administered on 08/15/18at 21:20; Admin Dose 50 MG; Start 08/15/18 at 21:00 Assessment/Plan Chief Complaint/Hosp Course IMP: 1. Acute on chronic renal failure with volume overload 2. ADHF/Volume overload 3. Acute on chronic Hypercapnic Resp Failure--s/p trach 4. Chronic atrial fibrillation 5. OHS 6. Anemia RECS: 1. Continue PMV as tolerated 2. ST eval later today 3. Cont. HD/UF Agree with DC planning SHARAD ELIAS [facility], [facility] Aug 16, 2018 10:50
--- NOTE | 2018-08-16 11:39 | CONS ---
Assessment/Plan Assessment/Plan Assessment/Plan (Daily) 1. acute Fluid overload with worsening renal failure, Oliguric to anuric- progressed to ESRD - started on HD on 08/11/18 2. Acute Uremia with BUN 223 on admission 3. SHAILA on CKD IV due to ATN 4. acute on chronic hypoxemix respiratory failure currenlty back on Vent, S/p tracheostomy 5. Anemia of ESRD 6. Hyperuricemia 7. Morbid to severe obesity 8. Pickwickian syndrome Plan: HD initiated on 08/11/18 -s/p Permacath placement on 08/13/18- worked good, Monty is discontinued from groin, will order Hd for tomorrow then keep pt on MWF schedule while being in hospital Allopurinol 100mg po daily Bumex 1mg po BID appreciate help from Dr. Pineda- Due to pt body habitus it was very difficult vascular access will follow up Consultation Date/Type/Reason Admit Date/Time Aug 10, 2018 at 05:03 Initial Consult Date 08/10/18 Type of Consult NEPHROLOGY Requesting Provider: EJ GRADY Date/Time of Note DATE: 08/16/18 TIME: 11:39 24 HR Interval Summary Free Text/Dictation transferred to tele, Plan for HD on monday pt is very agitated and disoriented today Exam/Review of Systems Vital Signs Vitals Vital Signs Date Temp Pulse Resp B/P (MAP) Pulse Ox O2 O2 Flow FiO2 Time Delivery Rate 08/16/18 98.7 97 20 90/52 (65) 96 10:00 08/16/18 Aerosol 5.0 09:20 Mask 08/15/18 28 20:06 Intake and Output 08/15/18 08/15/18 08/16/18 1515:00 23:00 07:00 IntakeIntake Total 680 ml 30 ml OutputOutput Total 3000 ml BalanceBalance -2320 ml 30 ml Exam Constitutional: alert, awake, morbidly obese, ENMT: other (Status post tracheostomy) Respiratory: diminished breath sounds (Bilaterally, patient with congestion.) Cardiovascular: irregular rhythm (Controlled atrial fibrillation) Gastrointestinal: soft, non-tender, morbidly obese, + harp catheter in place Musculoskeletal: Diffuse anasarca Extremities: normal pulses, 1-2+ pitting edema Neurological: COMMUNICATION SKILLS INSTRUCTOR II-XII intact, nl mental status, Results Result Diagram: 08/14/18 0442 08/14/18 0442 Results 24hrs Laboratory Tests Test 08/15/18 12:38 08/15/18 17:57 08/15/18 21:19 08/16/18 05:13 Bedside Glucose 152 130 135 127 RUY WERNER MD Aug 16, 2018 11:39
--- NOTE | 2018-08-16 11:49 | PN ---
DATE: 08/16/2018 SUBJECTIVE: Patient has been confused and agitated, requiring soft restraints. At the time of my vi sit he appeared disoriented. . OBJECTIVE: VITAL SIGNS: Stable. He is afebrile. NECK: Supple. LUNGS: Bilateral rhonchi. HEART: Regular rate and rhythm. ABDOMEN: Soft, obese, nontender, nondistended, normoactive bowel sounds. EXTREMITIES: No edema. NEUROLOGIC: Patient moves all extremities. ASSESSMENT AND PLAN: 1. Acute on chronic kidney injury, hemodialysis initiated. 2. Chronic respiratory failure, on tracheostomy and ventilator. 3. Volume overload, resolved. 4. Altered mental status/delirium. 5. Chronic atrial fibrillation. 6. Pickwickian syndrome. 7. Obstructive sleep apnea. 8. Hypertension. 9. Type 2 diabetes mellitus. PLAN: Continue Seroquel 50 mg at bedtime. Await discharge planning to subacute facility. Await arr angement of outpatient hemodialysis. Nephrology followup. Dictated By: LEIF FONTAINE/HUBERT Conf#: [id number] DID#: [id number]
--- NOTE | 2018-08-16 15:10 | NUR ---
PT NOTE Therapy day number 2 Subjective Current complaint of pain Pain Scale NUMERIC Pain Intensity 3 (0-10) Patient Stated Goal for Pain Relief 0 (0-10) Pain Level Comment general pain, more so abdominal pain Exercise Assessment Label Bilat Lower Extremity Exercise Type Active Assist ROM Additional Exercise Comments EOB: AP's, knee flex/ext, marches Exercise Start Time 15:10 Exercise End Time 15:20 Total Exercise Time 10 min (8-127) Transfer Training Start Time 15:20 Supine to Sit Maximum Assist Bed Mobility Sit to Supine Maximum Assist Sitting Tolerance 15 min Additional Mobility Comments Bed mobility w/HOB elevated using BR w/VCs for hand placement & sequence Transfer Training End Time 15:35 Total Transfer Training Time 15 min (8-127) Weight Bearing Assessment Label Bilat Lower Extremity Weight Bearing Status Full Weight Bearing Static Sitting Balance Fair Dynamic Sitting Balance Fair minus Balance Training Static or Dynamic Start Time 15:35 Balance Training Static or Dynamic End Time 15:50 Total Balance Training Time 15 min (8-127) Safety Judgement Fair Activity Tolerance Fair Equipment Present A pump Humphrey Catheter IV pump Additional Equipment Present trach, G-tube Post Treatment Pain Intensity 3 0-10 Total Treament Time 40 min (8-127) Total Minutes 40 Total Units 3 PT Technical Record Comment PT NOTE S: Pt stated, "I have some pain." Agreeable for PT and cleared per LITO Brantley. O: Received pt in semi-fowlers, alert w/BUE soft limb restraints donned. LITO Brantley gave this therapist permission to remove restraints for PT. Bed mobility w/HOB elevated using BR w/VCs/TCs for hand placement and sequence MaxA x 2. Pt performed EOB AAROM thera ex, see above for exercises, 2 sets x 10 per exercise. Pt also performed static/dynamic sitting balance exercises SBA/CGA. Noted pt would close (B) eyes, therefore required frequent VCs to keep eyes opened. Tolerated sitting for 15 minutes. Fair sitting balance. Pt reported fatigue, therefore assisted pt BTB w/VCs/TCs for hand placement & sequence MaxA x 2. Positioned pt for comfort, call light/phone within reach, bed alarmed, SCD's reapplied, BUE soft limb restraints reapplied, and all needs met. LITO Brantley informed of pt's status. A: Fair tolerance to tx. Pt showed no signs of distress or SOB during or after tx. No c/o dizziness or nausea throughout tx. Sitting balance and sitting tolerance significantly improved compared to previous tx. P: Continue POC and progress as tolerated.
--- NOTE | 2018-08-16 19:00 | NUR ---
EOSS A&Ox2. Confusion. Persian speaking. Diagnosis sepsis, acute kidney injury. Obese. Trach to mist FIO2 28%. Gtube Replete feeding 60cc/hr. Patient downgraded to Med Surg. Restraints continued. MDs unable to esign and renew restraints. Charge informed. Stool for Cdiff collected and sent to the lab. Dialysis ordered for tomorrow. Confirmation #[id number]. No signs of pain or respiratory distress. Bed brakes on, side rails up, call light within reach. Stable vital signs. Will endorse to transcriber.
[2018-08-16] MEDS: QUETIAPINE 25 MG TAB PO SCH (21:44)
[2018-08-16] MEDS: INSULIN GLARGINE [LANTus] (100 UNITS/ML) SYG SC SCH (22:20)
[2018-08-17] VITALS (34 sets, daily range): BP systolic 80–148; BP diastolic 55–86; PULSE 70–102; RESP 14–28
[2018-08-17] MEDS: ACCU-CHEK XX SCH (02:00)
[2018-08-17] MEDS: Insulin NOVOLOG SS MILD Algorithm (NPO/TPN/ENTERAL FEEDS) SC SCH ×4 (02:42→17:29)
[2018-08-17] MEDS: BUMETANIDE 1 MG TAB GTB SCH ×2 (05:22→17:25)
[2018-08-17] MEDS: PIPER-TAZO 2.25 GM (PMX) 50 ML IVPB SCH ×2 (05:22→14:30)
--- NOTE | 2018-08-17 06:25 | NUR ---
All needs attended and met. Patient's restraint was removed and discontinued at around 03:30 am. Patient was more calm, no signs of agitation. Kept patient safe and comfortable. No complaints of pain during the shift. Wound dressings changed. Trach care done. Kept clean and comfortable. Addendum: 08/17/18 at 0640 by KEVIN POPE RN For Hemodialysis today. Pending transfer to [facility], awaiting for bed.
--- NOTE | 2018-08-17 07:35 | NUR ---
RN UPDATE PATIENT WAS FOUND IN THE ROOM DURING MORNING ROUNDS HAVING RESPIRATORY DISTRESS, BREATHING FAST AND APPEARED TO BE VERY ANXIOUS AND PALE. ASSESSED THE PATIENT AND FOUND THAT THE TRACH TUBE WAS LAYING ON HIS CHEST. CALLED FOR PARTITION SETTER, CHECKED PULSES, PALPABLE. CHECKED BP- 95/55 hr- 70 o2 sat 98%. DR BAILEY WAS IN THE ROOM WITH RT'S. NEW TRACH TUBE WAS INSERTED AND PT WAS SUCTIONED. COPIOUS AMOUNT OF SECRETIONS NOTED. LABS WERE ORDERED. WILL CONTINUE TO MONITOR.
--- NOTE | 2018-08-17 07:50 | EN ---
Date/Time of Note Date/Time of Note DATE: 08/17/18 TIME: 07:47 Event Note Medicine Medicine Event Note Rapid response called this morning around 7:30. Briefly, this is a 63 yo man with a trach and PEG. Rapid response called after he pulled out his own trach. When I arrived the patient was minimally responsive and no vitals were available, but he had a pulse. RT at bedside quickly re- inserted the trach and patient immediately gasped and began breathing. BP was 120/70, pulse 80s, sat 98-100% on oxygen blow-by. After a few moments the patient woke up, made eye contact, and followed commands. On exam, he had equal breath sounds bilaterally and regular heart rate with no murmurs. I'll order CBC, CMP, and ABG because none are available the last few days. I'm also ordering soft restraints and a sitter. More than 40 minutes spent on the care and management of this patient. DIVINA BAILEY MD Aug 17, 2018 07:50
--- NOTE | 2018-08-17 08:41 | NUR ---
RN UPDATE CRITICAL LAB RESULT RECEIVED: PH- 7.25 CO2- 66.1, 02- 94%, CO3- 28.4. NOTIFIED DR ELIAS. STATES TO PUT PT ON VENT. VENT SETTINGS; AC- 16, VT- 500, PEEP- 5, FIO2- 50%. WILL CONTINUE TO MONITOR.
[2018-08-17] MEDS: CYANOCOBALAMIN 100 MCG TAB PO SCH (08:44)
[2018-08-17] MEDS: CHOLECALCIFEROL 1,000 UNIT TAB PO SCH (08:44)
[2018-08-17] MEDS: FAMOTIDINE 20 MG TAB PO SCH (08:44)
[2018-08-17] MEDS: COLLAGENASE 5 GM (UD JAR) TOP SCH (08:44)
[2018-08-17] MEDS: ALLOPURINOL 100 MG TAB PO SCH (08:44)
[2018-08-17] MEDS: FOLIC ACID 1 MG TAB PO SCH (08:44)
[2018-08-17] MEDS: AMIODARONE 200 MG TAB PO SCH (09:00)
[2018-08-17] MEDS: NEBIVOLOL 5 MG TAB PO SCH (09:00)
--- NOTE | 2018-08-17 09:17 | CONS ---
Assessment/Plan Assessment/Plan Assessment/Plan (Daily) 1. acute Fluid overload with worsening renal failure, Oliguric to anuric- progressed to ESRD - started on HD on 08/11/18 2. Acute Uremia with BUN 223 on admission 3. SHAILA on CKD IV due to ATN 4. acute on chronic hypoxemix respiratory failure currenlty back on Vent, S/p tracheostomy 5. Anemia of ESRD 6. Hyperuricemia 7. Morbid to severe obesity 8. Pickwickian syndrome Plan: HD initiated on 08/11/18 -s/p Permacath placement on 08/13/18- worked good, s/p HD today 700 cc removed, Plan for another HD on monday then keep pt on TTS schedule while being in hospital - pt is accepted [facility] for TTS at 1 pm shift Allopurinol 100mg po daily Bumex 1mg po BID still agitated despite beign on Seroquel appreciate help from Dr. Pineda- Due to pt body habitus it was very difficult vascular access will follow up Consultation Date/Type/Reason Admit Date/Time Aug 10, 2018 at 05:03 Initial Consult Date 08/10/18 Type of Consult NEPHROLOGY Requesting Provider: EJ GRADY Date/Time of Note DATE: 08/17/18 TIME: 09:17 24 HR Interval Summary Free Text/Dictation s/p HD today 700 ml removed, Bp stable, pt had a FOSTER CARE CASE MANAGER today AM Exam/Review of Systems Exam Vitals Vital Signs Date Temp Pulse Resp B/P (MAP) Pulse Ox O2 O2 Flow FiO2 Time Delivery Rate 08/17/18 96 5.0 28 08:26 08/17/18 86 20 Aerosol 08:26 T Tube 08/17/18 98.2 98/55 (69) 07:30 Intake and Output 08/16/18 08/16/18 08/17/18 1515:00 23:00 07:00 IntakeIntake Total 650 ml 780 ml OutputOutput Total 50 ml BalanceBalance 650 ml 730 ml Constitutional: alert, other (agitated ) Neck: supple, jvd Respiratory: crackles/rales, diminished breath sounds Cardiovascular: regular rate and rhythm, nl pulses Gastrointestinal: soft, other (morbidly obese ) Musculoskeletal: muscle weakness, swelling Neurological: other (agiated restless, non focal ) Results Result Diagram: 08/17/18 0752 08/17/18 0752 Results 24hrs Laboratory Tests Test 08/16/18 12:55 08/16/18 17:35 08/16/18 21:42 08/17/18 02:04 Bedside Glucose 147 162 167 172 Test 08/17/18 05:20 08/17/18 07:34 08/17/18 07:45 08/17/18 07:52 Bedside Glucose 156 131 Blood Gas Blood arterial Specimen Source Arterial Blood 08/17/2018 8:15:5 Date Drawn 2 AM Arterial Blood pH 7.251 *L (Temp corrected) Arterial Blood 66.1 H pCO2 (Temp correct) Arterial Blood 94.5 pO2 (Temp corrected) Arterial Blood 28.4 H HCO3 Arterial Blood 0.4 Base Excess Arterial Blood 96.0 Oxygen Saturation Lalo Test ACCEPTAB Arterial Blood Right Radial Gas Puncture Site Arterial 1.2 Blood Carboxyhemo globin Arterial Blood 0.3 Methemoglobin Blood Gas A-a O2 114.7 H Differential Oxyhemoglobin 94.6 Percent Blood Gas 37.0 Temperature Blood Gas TRACH COLLAR Modality FiO2 40.0 Blood Gas JUDI MORSE Critical Value Read Back Blood Gas TM Notified Whom Blood Gas 08/17/2018 8:24:5 Notified Time 1 AM White Blood Count 8.0 Red Blood Count 2.52 L Hemoglobin 7.7 L Hematocrit 26.5 L Mean Corpuscular 105.2 H Volume Mean Corpuscular 30.6 Hemoglobin Mean Corpuscular 29.1 L Hemoglobin Concen t Red Cell 21.0 H Distribution Width Platelet Count 129 L Mean Platelet 10.6 H Volume Immature 0.800 H Granulocytes % Neutrophils % 75.2 Lymphocytes % 13.2 L Monocytes % 6.5 Eosinophils % 4.2 Basophils % 0.1 Nucleated Red 0.4 H Blood Cells % Immature 0.060 H Granulocytes # Neutrophils # 6.0 Lymphocytes # 1.1 Monocytes # 0.5 Eosinophils # 0.3 Basophils # 0.0 Nucleated Red 0.0 Blood Cells # Sodium Level 138 Potassium Level 4.7 Chloride Level 95 L Carbon Dioxide 29 Level Anion Gap 14 H Blood Urea 69 H Nitrogen Creatinine 5.55 H Est Glomerular 10 L Filtrat Rate mL/min Glucose Level 120 Calcium Level 8.9 Total Bilirubin 0.0 L Direct Bilirubin 0.00 Indirect 0.0 Bilirubin Aspartate Amino 18 Transf (AST/SGOT) Alanine 15 Aminotransferase (ALT/SGPT) Alkaline 90 Phosphatase Total Protein 7.4 Albumin 3.4 Globulin 4.00 H Albumin/Globulin 0.85 Ratio RUY WERNER MD Aug 17, 2018 09:17
--- NOTE | 2018-08-17 11:08 | NUR ---
RN UPDATE NOTIFIED DR ELIAS REGARDING THE NEED OF CHEST XRAY FOR TRACH POSITION VERIFICATION. PATIENT HAD NEWLY INSERTED TRACH TUBE. MD ORDERED CHEST XRAY FOR TRACH POSITION VERIFICATION.
--- NOTE | 2018-08-17 11:44 | PN ---
DATE: 08/17/2018 SUBJECTIVE: The patient remains confused and agitated at times. Soft restraints were placed. OBJECTIVE: VITAL SIGNS: Vital signs are stable. He is afebrile. NECK: Supple. Tracheostomy in place. LUNGS: Bilateral rhonchi. CARDIAC: Regular rate and rhythm. No murmurs, rubs or gallops. ABDOMEN: Soft, obese, nontender, nondistended. Normoactive bowel sounds. EXTREMITIES: No clubbing, cyanosis, or edema. NEUROLOGIC: The patient moves all extremities. ASSESSMENT: 1. Nwyim-ic-ytwlwjz kidney injury, requiring initiation of hemodialysis. 2. Chronic respiratory failure, status post tracheostomy placement. 3. Pickwickian syndrome. 4. Obstructive sleep apnea. 5. Altered mental status/delirium. 6. Hypertension. 7. Type 2 diabetes mellitus. PLAN: 1. Continue current therapy. 2. Proceed with hemodialysis. 3. Continue Seroquel at bedtime. The patient is awaiting transfer to [facility] for further treatment. Dictated By: LEIF FONTAINE/HUBERT Conf#: [id number] DID#: [id number] CC: SHANEL BHATT MD;*EndCC*
[2018-08-17] MEDS: ALBUMIN HUMAN 25% 100 ML IV PRN (12:00)
--- NOTE | 2018-08-17 12:14 | CONS ---
Consult Date/Type/Reason Admit Date/Time Aug 10, 2018 at 05:03 Initial Consult Date 08/10/18 Type of Consult Pulmonary Requesting Provider: EJ GRADY Date/Time of Note DATE: 08/17/18 TIME: 12:13 Subjective Altered mental status this morning with arterial blood gas demonstrating worsening hypercapnia patient placed on mechanical ventilation. Objective Vital Signs Date Temp Pulse Resp B/P (MAP) Pulse Ox O2 O2 Flow FiO2 Time Delivery Rate 08/17/18 78 16 95 50 11:30 08/17/18 98.4 98/68 (78) Mechanical 10:00 Ventilator 08/17/18 5.0 08:26 Intake and Output 08/16/18 08/16/18 08/17/18 1515:00 23:00 07:00 IntakeIntake Total 650 ml 780 ml OutputOutput Total 50 ml BalanceBalance 650 ml 730 ml Exam GENERAL: Moderately obese gentleman on mechanical ventilation via tracheostomy VITAL SIGNS: per chart NECK: Supple. No JVD or lymphadenopathy. CARDIAC EXAM: S1, S2. No added sounds or murmurs. CHEST: clear bilaterally, No added sounds, rales or wheezes ABDOMEN: Soft, nontender. No guarding or rebound. EXTREMITIES: No cyanosis, clubbing or edema. NEUROLOGIC: Generalized weakness. No focal deficits. Vent Setting Ventilator Support Mode: AC Fraction of Inspired Oxygen pe: 50 Positive End Expiratory Pressu: 5.0 Results/Medications Result Diagram: 08/17/18 0752 08/17/18 0752 Results 24 hrs Laboratory Tests Test 08/16/18 12:55 08/16/18 17:35 08/16/18 21:42 08/17/18 02:04 Bedside Glucose 147 162 167 172 Test 08/17/18 05:20 08/17/18 07:34 08/17/18 07:45 08/17/18 07:52 Bedside Glucose 156 131 Blood Gas Blood arterial Specimen Source Arterial Blood 08/17/2018 8:15:5 Date Drawn 2 AM Arterial Blood pH 7.251 *L (Temp corrected) Arterial Blood 66.1 H pCO2 (Temp correct) Arterial Blood 94.5 pO2 (Temp corrected) Arterial Blood 28.4 H HCO3 Arterial Blood 0.4 Base Excess Arterial Blood 96.0 Oxygen Saturation Lalo Test ACCEPTAB Arterial Blood Right Radial Gas Puncture Site Arterial 1.2 Blood Carboxyhemo globin Arterial Blood 0.3 Methemoglobin Blood Gas A-a O2 114.7 H Differential Oxyhemoglobin 94.6 Percent Blood Gas 37.0 Temperature Blood Gas TRACH COLLAR Modality FiO2 40.0 Blood Gas JUDI MORSE Critical Value Read Back Blood Gas TM Notified Whom Blood Gas 08/17/2018 8:24:5 Notified Time 1 AM White Blood Count 8.0 Red Blood Count 2.52 L Hemoglobin 7.7 L Hematocrit 26.5 L Mean Corpuscular 105.2 H Volume Mean Corpuscular 30.6 Hemoglobin Mean Corpuscular 29.1 L Hemoglobin Concen t Red Cell 21.0 H Distribution Width Platelet Count 129 L Mean Platelet 10.6 H Volume Immature 0.800 H Granulocytes % Neutrophils % 75.2 Lymphocytes % 13.2 L Monocytes % 6.5 Eosinophils % 4.2 Basophils % 0.1 Nucleated Red 0.4 H Blood Cells % Immature 0.060 H Granulocytes # Neutrophils # 6.0 Lymphocytes # 1.1 Monocytes # 0.5 Eosinophils # 0.3 Basophils # 0.0 Nucleated Red 0.0 Blood Cells # Sodium Level 138 Potassium Level 4.7 Chloride Level 95 L Carbon Dioxide 29 Level Anion Gap 14 H Blood Urea 69 H Nitrogen Creatinine 5.55 H Est Glomerular 10 L Filtrat Rate mL/min Glucose Level 120 Calcium Level 8.9 Total Bilirubin 0.0 L Direct Bilirubin 0.00 Indirect 0.0 Bilirubin Aspartate Amino 18 Transf (AST/SGOT) Alanine 15 Aminotransferase (ALT/SGPT) Alkaline 90 Phosphatase Total Protein 7.4 Albumin 3.4 Globulin 4.00 H Albumin/Globulin 0.85 Ratio Test 08/17/18 11:54 Bedside Glucose 98 Medications Current Medications IV Flush (NS 3 ml) 3 ml PER PROTOCOL IV ; Start 08/10/18 at 09:30 Lorazepam (Ativan) 0.5 mg Q6H PRN IV ANXIETY Last administered on 08/16/18at 05 :23; Admin Dose 0.5 MG; Start 08/10/18 at 09:30 Ondansetron HCl (Zofran Inj) 4 mg Q6H PRN IV NAUSEA AND/OR VOMITING; Start 08/10/18 at 09:30 Acetaminophen (Tylenol Tab) 650 mg Q6H PRN PO PAIN LEVEL 1-3 OR FEVER; Start 08/10/18 at 09:30 Bisacodyl (Dulcolax Supp) 10 mg DAILY PRN RI CONSTIPATION; Start 08/10/18 at 09:30 Heparin Sodium (Porcine) (Heparin (5000 Units/1ml)) 5,000 unit Q12 SC ; Start 08/10/18 at 21:00; Status Hold Amiodarone HCl (Cordarone) 200 mg DAILY PO Last administered on 08/16/18at 09:26; Admin Dose 200 MG; Start 08/11/18 at 09:00 Cholecalciferol (Vitamin D) 1,000 unit DAILY PO Last administered on 08/17/18 08:44; Admin Dose 1,000 UNIT; Start 08/11/18 at 09:00 Cyanocobalamin (Vitamin B12) 100 mcg DAILY PO Last administered on 08/17/18 08:44; Admin Dose 100 MCG; Start 08/11/18 at 09:00 Folic Acid (Folic Acid) 1 mg DAILY PO Last administered on 08/17/18 08:44; Ad min Dose 1 MG; Start 08/11/18 at 09:00 Allopurinol (Zyloprim) 100 mg DAILY PO Last administered on 08/17/18 08:44; Admin Dose 100 MG; Start 08/11/18 at 09:00 Diagnostic Test (Pha) (Accu-Chek) 1 ea 02 XX Last administered on 08/11/18at 02:00; Admin Dose 1 EA; Start 08/11/18 at 02:00 Miscellaneous Information 1 ea NOTE XX ; Start 08/10/18 at 10:30 Glucose (Glutose) 15 gm Q15M PRN PO DECREASED GLUCOSE; Start 08/10/18 at 10:30 Glucose (Glutose) 22.5 gm Q15M PRN PO DECREASED GLUCOSE; Start 08/10/18 at 10:30 Dextrose (D50w Syringe) 25 ml Q15M PRN IV DECREASED GLUCOSE; Start 08/10/18 at 10:30 Dextrose (D50w Syringe) 50 ml Q15M PRN IV DECREASED GLUCOSE; Start 08/10/18 at 10:30 Glucagon (Glucagen) 1 mg Q15M PRN IM DECREASED GLUCOSE; Start 08/10/18 at 10:30 Glucose (Glutose) 15 gm Q15M PRN BUCCAL DECREASED GLUCOSE; Start 08/10/18 at 10:30 Miscellaneous Medication (Bystolic) 5 mg DAILY PO ; Start 08/11/18 at 09:00 Insulin Glargine (Lantus) 23 units DAILY@2000 SC Last administered on 08/16/18 22:20; Admin Dose 23 UNITS; Start 08/10/18 at 20:00 Albumin Human 100 ml @ 100 mls/hr WITH DIALYSIS PRN IV SBP less than 90 mm hg Last administered on 08/17/18 12:00; Admin Dose 100 MLS/HR; Start 08/10/18 at 12:30 Sodium Chloride (NS) -To prime the dialy... DIRECTED FOR HD PRN IV SBP less than 90 mm hg ; Start 08/10/18 at 12:30 Heparin Sodium (Porcine) (Heparin (1000 Units/ml)) 4,000 unit AFTER DIALYSIS CATHETER Last administered on 08/15/18 18:21; Admin Dose 4,000 UNIT; Start at 12:30 Collagenase (Santyl) 1 applic DAILY TOP Last administered on 08/17/18 08:44; Admin Dose 1 APPLIC; Start 08/11/18 at 13:00 Collagenase (Santyl) 1 applic PRN PRN TOP SOILAGE; Start 08/11/18 at 13:00 Piperacillin Sod/ Tazobactam Sod 50 ml @ 100 mls/hr Q8 IVPB Last administered on 08/17/18 05:22; Admin Dose 100 MLS/HR; Start 08/11/18 at 15:30 Mannitol 62.5 ml @ 750 mls/hr WITH DIALYSIS PRN IV BUN more than 100 Last administered on 08/13/18 15:26; Admin Dose 750 MLS/HR; Start 08/11/18 at 16:30 Insulin Aspart (Novolog Insulin Pen) (Adult SC Insulin - Mild Algorithm)... Q6 SC Last administered on 08/17/18 05:38; Admin Dose 1 UNIT; Start 08/12/18 at 12:00 Morphine Sulfate (morphine) 2 mg Q4H PRN IV PAIN LEVEL 7-10 Last administered on 08/14/18 21:12; Admin Dose 2 MG; Start 08/12/18 at 15:30 Quetiapine Fumarate (Seroquel) 50 mg HS PO Last administered on 08/16/18 21 :44; Admin Dose 50 MG; Start 1/23/19 at 21:00 Famotidine (Pepcid) 20 mg DAILY PO Last administered on 08/17/18at 08:44; Admin Dose 20 MG; Start 08/17/18 at 09:00 Bumetanide (Bumex) 1 mg BID DIURETICS GTB Last administered on 08/17/18at 05:22; Admin Dose 1 MG; Start 08/17/18 at 06:00 Assessment/Plan Hospital Course (Demo Recall) IMP: 1. Acute on chronic renal failure with volume overload 2. ADHF/Volume overload 3. Acute on chronic Hypercapnic Resp Failure--s/p trach now requiring mechanical ventilation 4. Chronic atrial fibrillation 5. OHS 6. Anemia RECS: 1. Continue mechanical ventilation would hold off on cool aerosol 2. Aspiration precautions 3. Cont. HD/UF [facility]AS [facility] Aug 17, 2018 12:14
[2018-08-17] MEDS: HEPARIN 1000 UNITS/ML 10 ML INJ CATHETER SCH (13:59)
--- NOTE | 2018-08-17 16:00 | NUR ---
PT NOTE Attempted to see pt for PT session in pm. Per chart review, MOSS PICKER called on pt this morning with patient having respiratory distress, breathing fast, anxious and pale. New trach inserted following. Communicated with RN, suggested holding PT today until chest XR complete for trach position verification. Will follow up tomorrow if time permits.
[2018-08-17] MEDS: VANCOMYCIN HCL 250 MG/5ML POSYG PO SCH ×2 (17:25→21:18)
--- NOTE | 2018-08-17 21:10 | NUR ---
RN NOTE RECEIVED PHONE CALL FROM DR. BENJAMIN, LEIF, ASKING WHY PATIENT WAS NOT SENT TO [facility], I EXPLAINED TO HIM THAT PATIENT PULLED OUT THE TRACH IN THE MORNING, AND DR. ELIAS HAD CHANGED THE PATIENT'S ADMISSION STATUS TO ADMISSION TO INPATIENT, AND THE MAINTENANCE CHIEF HAD NOT ARRANGED FOR THE PATIENT'S DISCHARGE. DR. BENJAMIN SAID THAT, THE PATIENT SHOULD BE DC TO [facility] TOMORROW, AND HE WILL BE HERE TO SIGN THE MEDICATION RECONCILIATION FORM TOMORROW.
[2018-08-17] MEDS: QUETIAPINE 25 MG TAB PO SCH (21:17)
[2018-08-17] MEDS: INSULIN GLARGINE [LANTus] (100 UNITS/ML) SYG SC SCH (21:23)
[2018-08-18] VITALS (38 sets, daily range): BP systolic 88–101; BP diastolic 49–68; PULSE 75–222; RESP 16–21
[2018-08-18] MEDS: ACCU-CHEK XX SCH (02:00)
[2018-08-18] MEDS: morphine 4 MG/ML VIAL IV PRN (04:06)
[2018-08-18] MEDS: Insulin NOVOLOG SS MILD Algorithm (NPO/TPN/ENTERAL FEEDS) SC SCH ×4 (06:00→18:00)
[2018-08-18] MEDS: BUMETANIDE 1 MG TAB GTB SCH ×2 (06:26→18:00)
--- NOTE | 2018-08-18 07:05 | NUR ---
RN NOTE PATIENT HAD RUNS OF AFIB/RVR AT 0300, AND 3 BEATS OF WIDE QRS TACHYCARDIA ON THE MONITOR, WAS ASYMPTOMATIC, Jacqueline MUSTAFA NOTIFIED NO NEW ORDERS. WILL CONTINUE TO MONITOR PATIENT'S HR. ENDORSED TO DAY SHIFT RN.
[2018-08-18] MEDS: NEBIVOLOL 5 MG TAB PO SCH (09:00)
[2018-08-18] MEDS: CYANOCOBALAMIN 100 MCG TAB PO SCH (09:14)
[2018-08-18] MEDS: FAMOTIDINE 20 MG TAB PO SCH (09:15)
[2018-08-18] MEDS: CHOLECALCIFEROL 1,000 UNIT TAB PO SCH (09:15)
[2018-08-18] MEDS: AMIODARONE 200 MG TAB PO SCH (09:15)
[2018-08-18] MEDS: QUETIAPINE 25 MG TAB PO SCH ×2 (09:15→20:36)
[2018-08-18] MEDS: ALLOPURINOL 100 MG TAB PO SCH (09:15)
[2018-08-18] MEDS: FOLIC ACID 1 MG TAB PO SCH (09:15)
[2018-08-18] MEDS: COLLAGENASE 5 GM (UD JAR) TOP SCH (09:15)
[2018-08-18] MEDS: VANCOMYCIN HCL 250 MG/5ML POSYG PO SCH ×4 (09:19→20:36)
--- NOTE | 2018-08-18 11:16 | CONS ---
Assessment/Plan Assessment/Plan Assessment/Plan (Daily) Ventilator setting; AC of 16, tidal volume 500, PEEP of 5, 30% FiO2. Assessment and recommendations; 1. Patient admitted with hypoxemia due to pulmonary edema from history of renal failure, patient on chronic hemodialysis. 2. Possibly superimposed pneumonia. 3. VDR F. 4. History of chronic atrial fibrillation. 5. Anemia and thrombocytopenia. Continue current supportive care. Consider discharge to long-term. Hemodialysis per level vial curvature gauger. Consultation Date/Type/Reason Admit Date/Time Aug 10, 2018 at 05:03 Initial Consult Date 08/10/18 Type of Consult Pulmonary/critical care Requesting Provider: EJ GRADY Date/Time of Note DATE: 08/18/18 TIME: 11:15 24 HR Interval Summary Free Text/Dictation Patient's condition is stable. Has remained hemodynamically stable. General exam; elderly male, on ventilator via tracheostomy, currently no distress. Exam/Review of Systems Exam Vitals Vital Signs Date Temp Pulse Resp B/P (MAP) Pulse Ox O2 O2 Flow FiO2 Time Delivery Rate 08/18/18 88 08:36 08/18/18 97.6 21 94/61 (72) 96 Mechanical 08:00 Ventilator Trach Collar 08/18/18 40 05:10 08/17/18 5.0 08:26 Intake and Output 08/17/18 08/17/18 08/18/18 1515:00 23:00 07:00 IntakeIntake Total 720 ml OutputOutput Total 700 ml 600 ml 100 ml BalanceBalance -700 ml -600 ml 620 ml Exam HEENT exam; supple neck, no JVD. No lymphadenopathy. Midline trachea. No thyromegaly. Tracheostomy in place. Patient has fair dentition. Chest exam; diminished but clear breath sounds. S1-S2 audible, no murmurs. Regular rhythm. Abdomen exam; soft, protuberant. G-tube in place. Bowel sounds audible. Extremity exam; trace edema. EXPERIENCE DESIGNER exam; no focal motor deficit. Results Result Diagram: 08/17/18 0752 08/17/18 0752 Results 24hrs Laboratory Tests Test 08/17/18 11:54 08/17/18 17:28 08/17/18 21:21 08/18/18 00:45 Bedside Glucose 98 82 95 101 Test 08/18/18 06:24 Bedside Glucose 86 Medications Medication Current Medications IV Flush (NS 3 ml) 3 ml PER PROTOCOL IV ; Start 08/10/18 at 09:30 Lorazepam (Ativan) 0.5 mg Q6H PRN IV ANXIETY Last administered on 08/16/18 05:23; Admin Dose 0.5 MG; Start 08/10/18 at 09:30 Ondansetron HCl (Zofran Inj) 4 mg Q6H PRN IV NAUSEA AND/OR VOMITING; Start 08/10/18 at 09:30 Acetaminophen (Tylenol Tab) 650 mg Q6H PRN PO PAIN LEVEL 1-3 OR FEVER; Start 08/10/18 at 09:30 Bisacodyl (Dulcolax Supp) 10 mg DAILY PRN MD CONSTIPATION; Start 08/10/18 at 09:30 Heparin Sodium (Porcine) (Heparin (5000 Units/1ml)) 5,000 unit Q12 SC ; Start 08/10/18 at 21:00; Status Hold Amiodarone HCl (Cordarone) 200 mg DAILY PO Last administered on 08/18/18 09:15; Admin Dose 200 MG; Start 08/11/18 at 09:00 Cholecalciferol (Vitamin D) 1,000 unit DAILY PO Last administered on 08/18/18 09:15; Admin Dose 1,000 UNIT; Start 08/11/18 at 09:00 Cyanocobalamin (Vitamin B12) 100 mcg DAILY PO Last administered on 08/18/18 09:14; Admin Dose 100 MCG; Start 08/11/18 at 09:00 Folic Acid (Folic Acid) 1 mg DAILY PO Last administered on 08/18/18 09:15; Admin Dose 1 MG; Start 08/11/18 at 09:00 Allopurinol (Zyloprim) 100 mg DAILY PO Last administered on 08/18/18 09:15; Admin Dose 100 MG; Start 08/11/18 at 09:00 Diagnostic Test (Pha) (Accu-Chek) 1 ea 02 XX Last administered on 08/11/18at 02:00; Admin Dose 1 EA; Start 08/11/18 at 02:00 Miscellaneous Information 1 ea NOTE XX ; Start 08/10/18 at 10:30 Glucose (Glutose) 15 gm Q15M PRN PO DECREASED GLUCOSE; Start 08/10/18 at 10:30 Glucose (Glutose) 22.5 gm Q15M PRN PO DECREASED GLUCOSE; Start 08/10/18 at 10:30 Dextrose (D50w Syringe) 25 ml Q15M PRN IV DECREASED GLUCOSE; Start 08/10/18 at 10:30 Dextrose (D50w Syringe) 50 ml Q15M PRN IV DECREASED GLUCOSE; Start 08/10/18 at 10:30 Glucagon (Glucagen) 1 mg Q15M PRN IM DECREASED GLUCOSE; Start 08/10/18 at 10:30 Glucose (Glutose) 15 gm Q15M PRN BUCCAL DECREASED GLUCOSE; Start 08/10/18 at 10:30 Miscellaneous Medication (Bystolic) 5 mg DAILY PO ; Start 08/11/18 at 09:00 Insulin Glargine (Lantus) 23 units DAILY@2000 SC Last administered on 08/17/18at 21:23; Admin Dose 23 UNITS; Start 08/10/18 at 20:00 Albumin Human 100 ml @ 100 mls/hr WITH DIALYSIS PRN IV SBP less than 90 mm hg Last administered on 08/17/18at 12:00; Admin Dose 100 MLS/HR; Start 08/10/18 at 12:30 Sodium Chloride (NS) -To prime the dialy... DIRECTED FOR HD PRN IV SBP less than 90 mm hg ; Start 08/10/18 at 12:30 Collagenase (Santyl) 1 applic DAILY TOP Last administered on 08/18/18at 09:15; Admin Dose 1 APPLIC; Start 08/11/18 at 13:00 Collagenase (Santyl) 1 applic PRN PRN TOP SOILAGE; Start 08/11/18 at 13:00 Mannitol 62.5 ml @ 750 mls/hr WITH DIALYSIS PRN IV BUN more than 100 Last administered on 08/13/18at 15:26; Admin Dose 750 MLS/HR; Start 08/11/18 at 16:30 Insulin Aspart (Novolog Insulin Pen) (Adult SC Insulin - Mild Algorithm)... Q6 SC Last administered on 08/17/18at 05:38; Admin Dose 1 UNIT; Start 08/12/18 at 12:00 Morphine Sulfate (morphine) 2 mg Q4H PRN IV PAIN LEVEL 7-10 Last administered on 08/18/18at 04:06; Admin Dose 2 MG; Start 08/12/18 at 15:30 Famotidine (Pepcid) 20 mg DAILY PO Last administered on 08/18/18 09:15; Admin Dose 20 MG; Start 08/17/18 at 09:00 Bumetanide (Bumex) 1 mg BID DIURETICS GTB Last administered on 08/18/18at 06:26; Admin Dose 1 MG; Start 08/17/18 at 06:00 Quetiapine Fumarate (Seroquel) 50 mg BID PO Last administered on 08/18/18at 09:15; Admin Dose 50 MG; Start 08/17/18 at 21:00 Heparin Sodium (Porcine) (Heparin (1000 Units/ml)) 4,700 unit AFTER DIALYSIS CATHETER Last administered on 08/17/18at 13:59; Admin Dose 4,700 UNIT; Start 08/17/18 at 14:00 Vancomycin HCl (Vancomycin Oral Syringe) 125 mg QID PO Last administered on 08/18/18 09:19; Admin Dose 125 MG; Start 08/17/18 at 17:00; Stop 08/27/18 at 13:01 ARMOND PAUL Aug 18, 2018 11:16
[2018-08-18] MEDS: ALBUMIN HUMAN 25% 100 ML IV PRN ×2 (15:02→15:57)
[2018-08-18] MEDS ORDERED: morphine LIQ (10 MG/5 ML) CUP PO PRN (15:30)
--- NOTE | 2018-08-18 15:50 | CONS ---
Assessment/Plan Assessment/Plan Assessment/Plan (Daily) 1. acute Fluid overload with worsening renal failure, Oliguric to anuric- progressed to ESRD - started on HD on 08/11/18 2. Acute Uremia with BUN 223 on admission 3. SHAILA on CKD IV due to ATN 4. acute on chronic hypoxemix respiratory failure currenlty back on Vent, S/p tracheostomy 5. Anemia of ESRD 6. Hyperuricemia 7. Morbid to severe obesity 8. Pickwickian syndrome Plan: HD initiated on 08/11/18 -s/p Permacath placement on 08/13/18- worked good, s/p HD today 700 cc removed, Plan for another HD on monday then keep pt on TTS schedule while being in hospital - pt is [facility] at [facility] for TTS at 1 pm shift Allopurinol 100mg po daily Bumex 1mg po BID still agitated despite beign on Seroquel appreciate help from Dr. Pineda- Due to pt body habitus it was very difficult vascular access will follow up Consultation Date/Type/Reason Admit Date/Time Aug 10, 2018 at 05:03 Initial Consult Date 08/10/18 Requesting Provider: EJ GRADY Date/Time of Note DATE: 08/18/18 TIME: 15:49 24 HR Interval Summary Free Text/Dictation Having HD now Exam/Review of Systems Exam Vitals Vital Signs Date Temp Pulse Resp B/P (MAP) Pulse Ox O2 O2 Flow FiO2 Time Delivery Rate 08/18/18 86 16 98 40 13:39 08/18/18 97.6 94/61 (72) Mechanical 08:00 Ventilator Trach Collar 08/17/18 5.0 08:26 Intake and Output 08/17/18 08/17/18 08/18/18 1515:00 23:00 07:00 IntakeIntake Total 720 ml OutputOutput Total 700 ml 600 ml 100 ml BalanceBalance -700 ml -600 ml 620 ml Results Result Diagram: 08/17/18 0752 08/17/18 0752 Results 24hrs Laboratory Tests Test 08/17/18 17:28 08/17/18 21:21 08/18/18 00:45 08/18/18 06:24 Bedside Glucose 82 95 101 86 Test 08/18/18 11:45 Bedside Glucose 102 Medications Medication Current Medications IV Flush (NS 3 ml) 3 ml PER PROTOCOL IV ; Start 08/10/18 at 09:30 Lorazepam (Ativan) 0.5 mg Q6H PRN IV ANXIETY Last administered on 08/16/18 05:23; Admin Dose 0.5 MG; Start 08/10/18 at 09:30 Ondansetron HCl (Zofran Inj) 4 mg Q6H PRN IV NAUSEA AND/OR VOMITING; Start 08/10/18 at 09:30 Acetaminophen (Tylenol Tab) 650 mg Q6H PRN PO PAIN LEVEL 1-3 OR FEVER; Start 08/10/18 at 09:30 Bisacodyl (Dulcolax Supp) 10 mg DAILY PRN NM CONSTIPATION; Start 08/10/18 at 09:30 Heparin Sodium (Porcine) (Heparin (5000 Units/1ml)) 5,000 unit Q12 SC ; Start 08/10/18 at 21:00; Status Hold Amiodarone HCl (Cordarone) 200 mg DAILY PO Last administered on 08/18/18 09:15; Admin Dose 200 MG; Start 08/11/18 at 09:00 Cholecalciferol (Vitamin D) 1,000 unit DAILY PO Last administered on 08/18/18 09:15; Admin Dose 1,000 UNIT; Start 08/11/18 at 09:00 Cyanocobalamin (Vitamin B12) 100 mcg DAILY PO Last administered on 08/18/18 09:14; Admin Dose 100 MCG; Start 08/11/18 at 09:00 Folic Acid (Folic Acid) 1 mg DAILY PO Last administered on 08/18/18 09:15; Admin Dose 1 MG; Start 08/11/18 at 09:00 Allopurinol (Zyloprim) 100 mg DAILY PO Last administered on 08/18/18 09:15; Admin Dose 100 MG; Start 08/11/18 at 09:00 Diagnostic Test (Pha) (Accu-Chek) 1 ea 02 XX Last administered on 08/11/18at 02:00; Admin Dose 1 EA; Start 08/11/18 at 02:00 Miscellaneous Information 1 ea NOTE XX ; Start 08/10/18 at 10:30 Glucose (Glutose) 15 gm Q15M PRN PO DECREASED GLUCOSE; Start 08/10/18 at 10:30 Glucose (Glutose) 22.5 gm Q15M PRN PO DECREASED GLUCOSE; Start 08/10/18 at 10:30 Dextrose (D50w Syringe) 25 ml Q15M PRN IV DECREASED GLUCOSE; Start 08/10/18 at 10:30 Dextrose (D50w Syringe) 50 ml Q15M PRN IV DECREASED GLUCOSE; Start 08/10/18 at 10:30 Glucagon (Glucagen) 1 mg Q15M PRN IM DECREASED GLUCOSE; Start 08/10/18 at 10:30 Glucose (Glutose) 15 gm Q15M PRN BUCCAL DECREASED GLUCOSE; Start 08/10/18 at 10:30 Miscellaneous Medication (Bystolic) 5 mg DAILY PO ; Start 08/11/18 at 09:00 Insulin Glargine (Lantus) 23 units DAILY@2000 SC Last administered on 08/17/18at 21:23; Admin Dose 23 UNITS; Start 08/10/18 at 20:00 Albumin Human 100 ml @ 100 mls/hr WITH DIALYSIS PRN IV SBP less than 90 mm hg Last administered on 08/18/18at 15:02; Admin Dose 100 MLS/HR; Start 08/10/18 at 12:30 Sodium Chloride (NS) -To prime the dialy... DIRECTED FOR HD PRN IV SBP less than 90 mm hg ; Start 08/10/18 at 12:30 Collagenase (Santyl) 1 applic DAILY TOP Last administered on 08/18/18at 09:15; Admin Dose 1 APPLIC; Start 08/11/18 at 13:00 Collagenase (Santyl) 1 applic PRN PRN TOP SOILAGE; Start 08/11/18 at 13:00 Mannitol 62.5 ml @ 750 mls/hr WITH DIALYSIS PRN IV BUN more than 100 Last administered on 08/13/18at 15:26; Admin Dose 750 MLS/HR; Start 08/11/18 at 16:30 Insulin Aspart (Novolog Insulin Pen) (Adult SC Insulin - Mild Algorithm)... Q6 SC Last administered on 08/17/18at 05:38; Admin Dose 1 UNIT; Start 08/12/18 at 12:00 Famotidine (Pepcid) 20 mg DAILY PO Last administered on 08/18/18at 09:15; Admin Dose 20 MG; Start 08/17/18 at 09:00 Bumetanide (Bumex) 1 mg BID DIURETICS GTB Last administered on 08/18/18at 06:26; Admin Dose 1 MG; Start 08/17/18 at 06:00 Quetiapine Fumarate (Seroquel) 50 mg BID PO Last administered on 08/18/18at 09:15; Admin Dose 50 MG; Start 08/17/18 at 21:00 Heparin Sodium (Porcine) (Heparin (1000 Units/ml)) 4,700 unit AFTER DIALYSIS CATHETER Last administered on 08/17/18at 13:59; Admin Dose 4,700 UNIT; Start 08/17/18 at 14:00 Vancomycin HCl (Vancomycin Oral Syringe) 125 mg QID PO Last administered on 08/18/18at 12:15; Admin Dose 125 MG; Start 08/17/18 at 17:00; Stop 08/27/18 at 13:01 Morphine Sulfate (morphine) 6 mg Q4H PRN PO SEVERE PAIN LEVEL 7-10; Start 08/18/18 at 15:30 CHRISTEN JAIME Aug 18, 2018 15:50
[2018-08-18] MEDS: HEPARIN 1000 UNITS/ML 10 ML INJ CATHETER SCH (18:06)
--- NOTE | 2018-08-18 19:41 | NUR ---
EOSS A&Ox2. Confusion. Georgian speaking. Diagnosis sepsis, acute kidney injury. Obese. Trach to vent ac 16. Gtube Replete feeding 60cc/hr. Restraints continued. Dialysis done. 1.6 ml taken out. Patient to be discharged to [facility] . Transfer packet completed. Report still to be given. liquid yeast supervisor time per lining caser [id number]. No signs of pain or respiratory distress. Bed brakes on, side rails up, call light within reach. Stable vital signs. Will endorse to evening or night nurse supervisor.
[2018-08-18] MEDS: INSULIN GLARGINE [LANTus] (100 UNITS/ML) SYG SC SCH (22:17)
[2018-08-19] VITALS (8 sets, daily range): BP systolic 92–104; BP diastolic 51–60; PULSE 79–97; RESP 18–24
[2018-08-19] MEDS: Insulin NOVOLOG SS MILD Algorithm (NPO/TPN/ENTERAL FEEDS) SC SCH (00:41)
[2018-08-19] MEDS: ACCU-CHEK XX SCH (02:08)
--- NOTE | 2018-08-19 04:54 | NUR ---
EOSS/DISCHARGE NOTE: Expected discharge time: 5 Actual discharge time: 0450 (Delay due to ambulance company and mixup at [facility]) N: Remained confused, anxious at times. Soft limb restraints continued. R: Trach-Vent, suctioned multiple times, otherwise saturating well. CV: AF controlled, BPs 90s/50s-100s/60s GI: GT Replete 60 ml/hr with flushes continued. BM x2 diarrhea. +CDIFF : Humphrey, oliguric. MS: Q2hr turning. Wound care completed. Hourly rounding completed. Q2hr turning. All of patient's needs attended to. Pt left unit at 0450 with generator worker
--- NOTE | 2018-08-31 14:29 | DS ---
DATE OF ADMISSION: 08/10/2018 DATE OF DISCHARGE: 08/19/2018 DISCHARGE DIAGNOSES: 1. Acute on chronic kidney injury, requiring initiation of hemodialysis. 2. Chronic respiratory failure, status post tracheostomy placement. 3. Pickwickian syndrome. 4. Obstructive sleep apnea. 5. Altered mental status/delirium. 6. Hypertension. 7. Type 2 diabetes mellitus. HOSPITAL COURSE: A 63-year-old male with Pickwickian syndrome, status post tracheostomy placement fo r chronic respiratory failure, presented with acute on chronic kidney injury. He required initiation of hemodialysis. The patient was seen by multiple specialists. PermCath was placed by Dr. Camilo verduzco on 08/13/2018. The patient was transferred to [facility] for remainder of his zaid tment. He will be followed by Dr. Guadarrama and on [facility]. Dictated By: LEIF BENJAMIN MD SK/NTS Conf#: [id number] DID#: [id number] CC: RITCHIE MADDOX MD; SHANEL BHATT MD;*End*
== END 2018-08-19 04:50 | disposition short-term general hospital (02) | DRG 673 ==
LOC: E/R 02:08 → ICU 05:03 → 6WM 08-12 21:24 → ICU 08-12 22:13 → TEL 08-14 17:25
PROVIDERS: ADMIT Internal Medicine; ATTEND Internal Medicine
PROC: 5A1D70Z Performance of Urinary Filtration, Intermittent, Less than 6 Hours Per Day (ICD-10-PCS; 2018-08-11)
PROC: 06HY33Z Insertion of Infusion Device into Lower Vein, Percutaneous Approach (ICD-10-PCS; 2018-08-11)
PROC: 0JH63XZ Insertion of Tunneled Vascular Access Device into Chest Subcutaneous Tissue and Fascia, Percutaneous Approach (ICD-10-PCS; 2018-08-14)
PROC: 02H633Z Insertion of Infusion Device into Right Atrium, Percutaneous Approach (ICD-10-PCS; principal; 2018-08-14 10:30)
PROC: 5A1945Z Respiratory Ventilation, 24-96 Consecutive Hours (ICD-10-PCS; 2018-08-17)
PROC: 0B21XFZ Change Tracheostomy Device in Trachea, External Approach (ICD-10-PCS; 2018-08-17)
DX: N17.0 Acute kidney failure with tubular necrosis (principal); I50.31 Acute diastolic (congestive) heart failure; J96.21 Acute and chronic respiratory failure with hypoxia; J96.22 Acute and chronic respiratory failure with hypercapnia; I13.2 Hypertensive heart and chronic kidney disease with heart failure and with stage 5 chronic kidney disease, or end stage renal disease; Z68.42 Body mass index [BMI] 45.0-49.9, adult; E66.2 Morbid (severe) obesity with alveolar hypoventilation; N18.6 End stage renal disease; E11.22 Type 2 diabetes mellitus with diabetic chronic kidney disease; I48.2 Chronic atrial fibrillation; D63.1 Anemia in chronic kidney disease; M10.9 Gout, unspecified; D69.6 Thrombocytopenia, unspecified; Z93.1 Gastrostomy status; Z93.0 Tracheostomy status; Z99.2 Dependence on renal dialysis; Z79.4 Long term (current) use of insulin
CPT/HCPCS: 36415; 36430; 36561; 36600; 71045; 74230; 76775; 80048; 80053; 80061; 81001; 81003; 82270; 82550; 82553; 82728; 82803; 82962; 83036; 83540; 83605; 83735; 83880; 84100; 84439; 84443; 84484; 84560; 85025; 85610; 85730; 86644; 86704; 86709; 86803; 86850; 86900; 86901; 86920; 87040; 87075; 87081; 87086; 87340; 89190; 90935; 92610; 92611; 93005; 93306; 93970; 94002; 94003; 96360; 97110; 97162; 97530; C1752; J1642; J1644; J1815; J2060; J2150; J2270; J2274; J2543; J2597; J3370; J3420; J7030; J7040; P9016; P9047